=== PATIENT | female | born 1940 | race Caucasian/White ===

== ENCOUNTER 2020-04-25 09:58 | Outpatient (REF) | payer MEDICARE, SELFPAY ==
--- NOTE | 2020-04-25 10:57 | PM.OP ---
Brief Operative Note Date of procedure: 04/25/20 Pre-op diagnosis: nontoxic multinodular goiter Post-op diagnosis: same Procedure: Fine-needle aspiration biopsy of isthmic nodule and right mid pole lateral nodule. This procedure was explained to the patient. Alternatives, risks and benefits were discussed. Written consent was obtained. After sterile preparation of the skin, fine-needle aspiration biopsy of isthmic /right side thyroid nodule size 2.5 x 1.3 x 2.1 cm was performed under direct ultrasound guidance to confirm accurate needle placement. Four passes were performed with 25 gauge needles. Sample was submitted for cytology, initial cytology reading was rare follicular cells. 1 extra pass was performed with 25 gauge needle. Two passes were dedicated for [employer] genomic sequencing director marketing communications test. Second fine-needle aspiration biopsy of right mid pole lateral nodule size 1.1 x 1.2 cm was performed under thyroid ultrasound guidance to confirm accurate needle placement. Four passes were performed with 25 gauge needles. Sample was submitted for cytology, initial cytology reading was borderline. Patient tolerated procedure well. Aftercare instructions were provided. Impression: uncomplicated fine-needle aspiration biopsy of Isthmic / right nodule and right mid pole lateral thyroid nodules under direct ultrasound guidance. Surgeon: Garrison Downing MD Anesthesia: local ( Lidocaine 1%, 2 mL) Estimated blood loss (mL): 0 Condition: stable Disposition: same day
[2020-04-25] MEDS: Lidocaine HCl 1 % MPF 5 ML VIAL SUBCUT (13:18)
== END 2020-04-25 09:59 | disposition home or self-care (01) ==
LOC: HO.US 09:58
PROVIDERS: Visit Provider Internal Medicine Endocrinology, Diabetes & Metabolism
DX: E04.2 Nontoxic multinodular goiter (principal)
CPT/HCPCS: 10005; 10006; 88172; 88173; 88177; 88305

== ENCOUNTER → 2020-05-16 11:14 | Outpatient (BNVA) | payer MEDICARE, SELFPAY | PROVIDERS: PCP Internal Medicine; Referring Provider Internal Medicine; Visit Provider Internal Medicine Endocrinology, Diabetes & Metabolism | DX: E11.9 Type 2 diabetes mellitus without complications (principal); Z79.84 Long term (current) use of oral hypoglycemic drugs; M81.0 Age-related osteoporosis without current pathological fracture; E04.2 Nontoxic multinodular goiter; E53.8 Deficiency of other specified B group vitamins; Z79.899 Other long term (current) drug therapy | CPT/HCPCS: 82947; 99212 ==

== ENCOUNTER 2020-09-02 14:16 | Outpatient (REF) | payer MEDICARE, SELFPAY ==
[2020-09-02 16:46] LABS: Alanine Aminotransferase 25 U/L (0-31); Albumin Level 4.6 g/dL (3.5-5.0); Alkaline Phosphatase 69 U/L (39-117); Anion Gap 16 (12-20); Aspartate Amino Transferase 15 U/L (5-31); Bilirubin Total 2.6 mg/dL (0.0-1.0); Blood Urea Nitrogen 20 mg/dL (9-16); Calcium 10.8 mg/dL (8.4-10.2); Carbon Dioxide 28 mmol/L (22-29); Chloride 102 mmol/L (96-108); Cholesterol 126 mg/dL; Estimated Glomerular Filt Rate > 60; Glucose Fasting 189 mg/dL (60-99); HDL Cholesterol 43 mg/dL; LDL Cholesterol Calculated 40 mg/dl; Potassium 4.2 mmol/L (3.3-5.1); Sodium 142 mmol/L (135-145); Total Protein 7.6 g/dL (6.5-8.0); Triglycerides 217 mg/dL
[2020-09-02 17:03] LABS: Vitamin D 25-OH Total 38.5 ng/mL (>30)
[2020-09-02 17:07] LABS: Vitamin B12 301 pg/mL (200-900)
[2020-09-03 01:22] LABS: LDL Cholesterol Direct 65 mg/dL (<100)
== END 2020-09-02 14:17 | disposition home or self-care (01) ==
LOC: HO.HMGCLDS 14:16
PROVIDERS: PCP Internal Medicine; Visit Provider Internal Medicine Endocrinology, Diabetes & Metabolism
DX: E11.9 Type 2 diabetes mellitus without complications (principal); M81.0 Age-related osteoporosis without current pathological fracture
CPT/HCPCS: 36415; 80053; 80061; 82306; 82607; 83721

== ENCOUNTER 2020-09-09 | Outpatient (REF) | payer MEDICARE, SELFPAY ==
[2020-09-17 01:02] LABS: N-Telopeptide 23 (see note); NTXCreaRU 32 mg/dL (20-275)
== END 2020-09-09 00:01 | disposition home or self-care (01) ==
LOC: HO.HMGCLNP
PROVIDERS: Visit Provider Internal Medicine Endocrinology, Diabetes & Metabolism
DX: M81.0 Age-related osteoporosis without current pathological fracture (principal)
CPT/HCPCS: 82523

== ENCOUNTER → 2020-09-13 10:48 | Outpatient (BNVA) | payer MEDICARE, SELFPAY | PROVIDERS: PCP Internal Medicine; Visit Provider Internal Medicine Endocrinology, Diabetes & Metabolism | DX: E11.9 Type 2 diabetes mellitus without complications (principal); M81.0 Age-related osteoporosis without current pathological fracture; E04.2 Nontoxic multinodular goiter; E53.8 Deficiency of other specified B group vitamins; E78.5 Hyperlipidemia, unspecified; I10 Essential (primary) hypertension | CPT/HCPCS: 82947; 99212 ==

== ENCOUNTER 2020-09-13 11:58 | Outpatient (REF) | payer MEDICARE, SELFPAY ==
[2020-09-13 14:29] LABS: Alanine Aminotransferase 18 U/L (0-31); Albumin Level 4.7 g/dL (3.5-5.0); Alkaline Phosphatase 70 U/L (39-117); Anion Gap 16 (12-20); Aspartate Amino Transferase 13 U/L (5-31); Bilirubin Total 2.6 mg/dL (0.0-1.0); Blood Urea Nitrogen 17 mg/dL (9-16); Calcium 10.4 mg/dL (8.4-10.2); Carbon Dioxide 26 mmol/L (22-29); Chloride 103 mmol/L (96-108); Estimated Glomerular Filt Rate > 60; Glucose Fasting 179 mg/dL (60-99); Potassium 4.5 mmol/L (3.3-5.1); Sodium 140 mmol/L (135-145); Total Protein 7.7 g/dL (6.5-8.0)
[2020-09-16 18:41] LABS: Calcium (PTHI) 10.6 mg/dL (8.6-10.4); PTHI 20 pg/mL (14-64)
[2020-09-18 15:27] LABS: Fructosamine 302 umol/L (205-285)
== END 2020-09-13 11:59 | disposition home or self-care (01) ==
LOC: HO.10HDL 11:58
PROVIDERS: Visit Provider Internal Medicine Endocrinology, Diabetes & Metabolism
DX: M81.0 Age-related osteoporosis without current pathological fracture (principal); E11.9 Type 2 diabetes mellitus without complications
CPT/HCPCS: 36415; 80053; 82306; 82985; 83970

== ENCOUNTER → 2020-09-24 09:31 | Outpatient (BNVA) | payer MEDICARE, SELFPAY | PROVIDERS: PCP Internal Medicine; Visit Provider Internal Medicine Cardiovascular Disease | DX: R06.02 Shortness of breath (principal); Z79.899 Other long term (current) drug therapy; Z87.891 Personal history of nicotine dependence | CPT/HCPCS: 99212 ==

== ENCOUNTER 2020-10-01 09:22 | Outpatient (REF) | payer MEDICARE, SELFPAY ==
--- NOTE | ~2020-10-01 | US_ITS ---
EXAMINATION: US THYROID CLINICAL INFORMATION: Followup nodules. COMPARISON: None. TECHNIQUE: Linear transducer miller-scale and color Doppler examination with attention to the region of the thyroid. FINDINGS: SIZE: Measurements of the thyroid lobes and nodules are given in sagittal, anteroposterior and transverse dimensions respectively. Right Thyroid Lobe: 5.7 x 2.3 x 2.1 cm, volume 14.4 mL. Previously 5.2 x 2.0 x 2.1 cm, volume 11.1 mL. Parenchyma: The gland echotexture is heterogeneous. Thyroid vascularity is normal. Left Thyroid Lobe: 4.7 x 1.6 x 1.9 cm, volume 7.5 mL. Previously 4.6 x 1.6 x 1.9 cm, volume 7.1 mL. Parenchyma: The gland echotexture is heterogeneous. Thyroid vascularity is normal. Isthmus: 1.3 cm in maximum AP dimension. Previously 0.3 cm. Estimated total number of nodules greater than or equal to 1 cm: 6 to 10. Head Loft Worker nodules are described as follows: 1. Location: Right isthmus. Size: 2.7 x 1.3 x 2.1 cm, volume 3.7 mL. Previously: 2.5 x 1.3 x 2.1 cm, volume 3.6 mL. Nodule characteristics: Composition: Solid/almost completely solid (2). Echogenicity: Hypoechoic (2). Shape: Not taller than wide (0). Margins: Smooth (0). Echogenic Foci: None (0). ACR TI-RADS total points: 4 ACR TI-RADS category: 4 Significant change in size (>/= 20% in 2 dimensions and minimal increase of 2 mm or 50% or greater increase in volume): None Change in features: None Change in ACR TI-RADS risk category: None 2. Location: Right mid. Size: 1.5 x 0.8 x 1.1 cm, volume 0.7 mL. Previously: 0.8 x 0.4 x 0.6 cm, volume 0.1 mL. Nodule characteristics: Composition: Spongiform (0). Echogenicity: Anechoic (0). Shape: Not taller than wide (0). Margins: Smooth (0). Echogenic Foci: None (0). ACR TI-RADS total points: 0 ACR TI-RADS category: 1 Significant change in size (>/= 20% in 2 dimensions and minimal increase of 2 mm or 50% or greater increase in volume): None Change in features: None Change in ACR TI-RADS risk category: None 3. Location: Right mid lateral. This lesion has been biopsied previously. Size: 1.8 x 0.8 x 1.1 cm, volume 1.1 mL. Previously: 1.2 x 0.8 x 1.2 cm, volume 0.6 mL. Nodule characteristics: Composition: Mixed cystic and solid (1). Echogenicity: Hypoechoic (2). Shape: Not taller than wide (0). Margins: Smooth (0). Echogenic Foci: None (0). ACR TI-RADS total points: 3 ACR TI-RADS category: 3 Significant change in size (>/= 20% in 2 dimensions and minimal increase of 2 mm or 50% or greater increase in volume): None Change in features: None Change in ACR TI-RADS risk category: None 4. Location: Right inferior. Size: 1.3 x 0.8 x 0.9 cm, volume 0.5 mL. Previously: New since the previous study. Nodule characteristics: Composition: Solid (2). Echogenicity: Hypoechoic (2). Shape: Not taller than wide (0). Margins: Smooth (0). Echogenic Foci: None (0). ACR TI-RADS total points: 4 ACR TI-RADS category: 4 Significant change in size (>/= 20% in 2 dimensions and minimal increase of 2 mm or 50% or greater increase in volume): None Change in features: None Change in ACR TI-RADS risk category: None 5. Location: Left mid. Size: 1.4 x 0.9 x 1.1 cm, volume 0.7 mL. Previously: 1.4 x 1.0 x 1.3 cm, volume 0.95 mL. Nodule characteristics: Composition: Mixed cystic and solid (1). Echogenicity: Hypoechoic (2). Shape: Not taller than wide (0). Margins: Smooth (0). Echogenic Foci: Macrocalcifications (1). ACR TI-RADS total points: 4 ACR TI-RADS category: 4 Significant change in size (>/= 20% in 2 dimensions and minimal increase of 2 mm or 50% or greater increase in volume): None Change in features: None Change in ACR TI-RADS risk category: None NODES: No lymphadenopathy is seen in the tissue surrounding the thyroid gland. US/US thyroid IMPRESSION: Multinodular goiter with the largest measured thyroid nodules stable and unchanged. ACR TI-RADS RECOMMENDATION REFERENCE: Ultrasound-guided fine-needle aspiration, followup ultrasound, no further followup. * TR1 (0 point) and TR 2 (2 points): No FNA or followup. * TR3 (3 points): FNA if more than or equal to 2.5 cm in maximum dimension, followup ultrasound in 1, 3 and 5 years if 1.5 to 2.4 cm in maximum dimension. * TR4 (4-6 points): FNA if more than or equal to 1.5 cm in maximum dimension, followup ultrasound in 1, 2, 3 and 5 years if 1 to 1.4 cm in maximum dimension. * TR5 (more than or equal to 7 points): FNA if more than or equal to 1 cm in maximum dimension, followup ultrasound every year for 5 years if 0.5 to 0.9 cm in maximum dimension. * TR3, TR4 or TR5 nodules that are below the size threshold for followup receive no followup.
== END 2020-10-01 09:23 | disposition home or self-care (01) ==
LOC: HO.HMGCX 09:22
PROVIDERS: PCP Internal Medicine; Visit Provider Internal Medicine Endocrinology, Diabetes & Metabolism
DX: E04.2 Nontoxic multinodular goiter (principal); M81.0 Age-related osteoporosis without current pathological fracture
CPT/HCPCS: 76536

== ENCOUNTER 2020-10-17 09:02 | Outpatient (REF) | payer MEDICARE, SELFPAY ==
[2020-10-17 10:37] LABS: Blood Urea Nitrogen 15 mg/dL (9-16); Estimated Glomerular Filt Rate > 60
== END 2020-10-17 09:03 | disposition home or self-care (01) ==
LOC: HO.MDS 09:02
PROVIDERS: PCP Internal Medicine; Visit Provider Internal Medicine Endocrinology, Diabetes & Metabolism
DX: M81.0 Age-related osteoporosis without current pathological fracture (principal)
CPT/HCPCS: 36415; 82565; 84520; 96365; J3489

== ENCOUNTER → 2020-10-24 09:31 | Outpatient (REF) | payer MEDICARE, SELFPAY ==
--- NOTE | 2020-10-24 09:35 | CA_ITS ---
Transthoracic Echocardiogram Patient (Last, First, Middle): Angelika Mora M Gender: Female Date of : 1940 Age: 79 Procedure Date: 10/24/2020 Procedure Type: Transthoracic Echocardiogram Location: OP Height: 162.56 cm Weight: 86.18 kg BSA: 1.91 m2 Heart Rate: bpm BP: 140 / 70 mmHg Clothespin Drier Operator: NOEMI Referring MD: Erasto Hanley MD Symptoms: R06.02 - Shortness of breath Study Quality: Fair ECG Rhythm: Sinus Conclusions: - The left ventricular systolic function is normal. The visually estimated ejection fraction is between 60-65%. - The basal inferior segment is akinetic. - No obvious valvular pathology seen on this study. Findings Left Ventricle Normal left ventricular cavity size. There is mildly increased left ventricular wall thickness. The left ventricular systolic function is normal. The visually estimated ejection fraction is between 60-65%. E/E prime ratio is between 8 and 15 consistent with indeterminate filling pressures. Evidence suggests grade I (mild) diastolic dysfunction. Wall Motion Rest Echo Findings The basal inferior segment is akinetic. Right Ventricle Normal right ventricular cavity size and systolic function. Atria The left atrium is normal in size. The right atrium is normal in size. Aortic Valve There is a normal trileaflet aortic valve. There is mild calcification of the aortic valve. There is no aortic valve stenosis. There is no aortic valve regurgitation. Mitral Valve The mitral valve appears normal. There is trace mitral valve regurgitation. There is no mitral valve stenosis. Pulmonic Valve The pulmonic valve was not well visualized. Tricuspid Valve Normal tricuspid valve structure. There is trace tricuspid valve regurgitation. The pulmonary artery systolic pressure is normal. Great Vessels The aortic annulus, sinuses of valsalva, and asc aorta are normal in size. Venous The inferior vena cava is normal in size and collapses greater than 50% with inspiration. Pericardium/Pleural There is no evidence of pericardial effusion. Prior Study Comparison No significant change compared to prior study dated: 12/09/2016. Recommendations, Care & Conclusions No obvious valvular pathology seen on this study. Measurements 2D Linear Measurements IVSd: 1.15 0.6-0.9/0.6-1.0 cm LVIDd: 3.86 3.9-5.3/4.2-5.9 cm LVIDd Index: 2.02 2.4-3.2/2.2-3.1 cm/m2 LVIDs: 2.65 2.0-3.6 cm LVPWd: 1.11 0.7-1.1 cm Ao Root: 3.30 2.1-3.5 cm LA Diam: 4.20 2.7-3.8/3.0-4.0 cm LAIDs Index: 2.20 1.5-2.3 cm/m2 LV Mass: 178.58 67-162/88-224 g LV Mass Index: 93.50 43-95/49-115 g/m2 LVOT Diam: 2.20 3.0+(-)1.3 cm 2D Systolic Function EF 4C: 68.60 >55% EF 2C: 64.80 >55% EF BiP: 66.50 >55% Mitral Valve MV Pk E: 0.62 MV PK A: 0.97 MV Decel Time: 289.00 E/A: 0.60 E'Lateral: 7.64 E'Medial: 4.54 E/E' Med: 13.60 E/E' Lat: 8.10 PHT: 85.00 MVA PHT: 2.59 Decel Gray: 2.14 Aortic Valve AoV Pk Yonathan: 1.78 AoV Mn Yonathan: 1.03 AoV VTI: 0.29 AoV Pk Grad: 13.00 Aov Mn Grad: 5.00 GLORIA Cont.VTI: 2.52 LVOT LVOT Pk Yonathan: 1.22 LVOT Mn Yonathan: 0.71 LVOT VTI: 0.19 LVOT Pk Grad: 6.00 LVOT Mn Grad: 3.00 LVOT Diam: 2.20 LVOT Area: 3.80 Diastolic Function MV Pk E: 0.62 MV Pk A: 0.97 E/A: 0.60 E'Medial: 4.54 E/E' Med: 13.60 E' Laterial: 7.64 E/E' Lat: 8.10 Tricuspid Valve TR Pk Yonathan: 1.52 TR Pk Grad: 9.00 RA Press: 3.00 RVSP: 12.00 Great Vessels Aorta Ao Root-2D: 3.30 2.0-3.7 cm Ao Asc: 3.60 2.1-3.4 cm Ao Arch: 3.20 Updated in Other Vendor System with Status of Final Derrick Alarcon MD electronically signed on 10/26/2020 9:58:45 AM with status of Final
== END ==
LOC: HO.CARD 09:31
PROVIDERS: Visit Provider Internal Medicine Cardiovascular Disease
DX: R06.02 Shortness of breath (principal)
CPT/HCPCS: 93306

== ENCOUNTER 2020-10-31 11:06 | Outpatient (REF) | payer MEDICARE, SELFPAY ==
--- NOTE | ~2020-10-31 | XR_ITS ---
EXAMINATION: XR CHEST CLINICAL INFORMATION: History of neck within the tendons. COMPARISON: Chest 06/03/2016 TECHNIQUE: Chest 2 views FINDINGS: The lungs are hyperinflated but clear of acute process. The heart size is enlarged. Pulmonary vascularity is normal. No gross bony abnormality seen. XR/XR chest 2V IMPRESSION: Inflated lungs without acute process.
== END 2020-10-31 11:07 | disposition home or self-care (01) ==
LOC: HO.XRAY 11:06
PROVIDERS: PCP Internal Medicine; Visit Provider Internal Medicine
DX: R06.02 Shortness of breath (principal); I25.10 Atherosclerotic heart disease of native coronary artery without angina pectoris; I10 Essential (primary) hypertension; E53.8 Deficiency of other specified B group vitamins; E11.9 Type 2 diabetes mellitus without complications; I48.0 Paroxysmal atrial fibrillation; J30.81 Allergic rhinitis due to animal (cat) (dog) hair and dander; M81.0 Age-related osteoporosis without current pathological fracture; Z87.891 Personal history of nicotine dependence; Z79.84 Long term (current) use of oral hypoglycemic drugs; Z79.899 Other long term (current) drug therapy
CPT/HCPCS: 71046; 99202

== ENCOUNTER 2020-12-11 10:16 | Outpatient (REF) | payer MEDICARE, SELFPAY ==
--- NOTE | ~2020-12-11 | MM_ITS ---
EXAMINATION: BONE DENSITOMETRY CLINICAL INDICATION: Age-related osteoporosis without current pathological fracture. COMPARISON: Previous BD dated 12/06/2018 and baseline BD dated 07/30/2016. TECHNIQUE: Using a [employer] DXA System (software version: 13.1) manufactured by [employer], dual-energy x-ray absorptiometry was performed of the lumbar spine and right hip. The images are of good technical quality. Summary results are attached. FINDINGS: AP SPINE L1-L4: Current: BMD 1.092 g/cm2, Z-score 0.4, T-score -0.7, normal, 0.8% increase from previous, 2.5% increase from baseline (<5% change is not significant). Prior: BMD 1.083 g/cm2. Baseline: BMD 1.065 g/cm2. RIGHT FEMUR, NECK: Current: BMD 0.645 g/cm2, Z-score -1.2, T-score -2.8, osteoporosis. Prior: BMD 0.673 g/cm2. Baseline: BMD 0.696 g/cm2. RIGHT FEMUR, TOTAL: Current: BMD 0.770 g/cm2, Z-score -0.4, T-score -1.9, osteopenia, 1.5% decrease from previous, 1.9% decrease from baseline (<5% change is not significant). Prior: BMD 0.782 g/cm2. Baseline: BMD 0.785 g/cm2. IDENTIFIED RISK FACTORS: Osteoporosis, height loss, history of fracture (adult), glucocorticoids (chronic), menopause, hysterectomy, bilateral oophorectomy. HISTORY OF FRACTURE: Hip, Trauma. MEDICATIONS: Vitamin D. MM/XR DEXA axial skeleton IMPRESSION: 1. DIAGNOSIS: Osteoporosis based on the lowest T-score value of -2.8 in the femoral neck applying World Health Organization criteria. 2. 10-YEAR FRACTURE RISK PREDICTION, FRAX: Major osteoporotic fracture (clinical spine, forearm, hip or shoulder) 41.5%. Hip fracture 17.3%. 3. Treatment Recommendations: NOF guidelines recommend consideration for treatment in postmenopausal women and men age 50 and older presenting with the following: -A hip or vertebral (clinical or morphometric) fracture. -T-score less than or equal to -2.5 at the femoral neck or spine after appropriate evaluation to exclude secondary causes. -Low bone mass at the hip or spine and a 10-year fracture probability by FRAX of greater than or equal to 3% for hip fracture or greater than or equal to 20% for major osteoporotic fracture based on the [place] adapted WHO algorithm. 4. Other Recommendations: All treatment decisions require clinical judgment and consideration of individual patient factors, including patient preferences, comorbidities, previous drug use, risk factors not captured in the FRAX model (e.g. frailty, falls, vitamin D deficiency, increased bone turnover, interval significant decline in bone density) and possible under or overestimation of fracture risk by FRAX. Additional medical evaluation for secondary cause of low bone mineral density may be appropriate. FUTURE SCAN RECOMMENDATION: People with diagnosed cases of osteoporosis or at high risk for fracture should have regular bone mineral density tests. For patients eligible for Medicare, routine testing is allowed once every 2 years. The testing frequency can be increased to one year for patients who have rapidly progressing disease, those who are receiving or discontinuing medical therapy to restore bone mass, or have additional risk factors.
== END 2020-12-11 10:17 | disposition home or self-care (01) ==
LOC: HO.MAMMO 10:16
PROVIDERS: PCP Internal Medicine; Visit Provider Internal Medicine Endocrinology, Diabetes & Metabolism
DX: Z13.820 Encounter for screening for osteoporosis (principal); M81.0 Age-related osteoporosis without current pathological fracture; E27.49 Other adrenocortical insufficiency; Z78.0 Asymptomatic menopausal state; Z98.890 Other specified postprocedural states; Z79.899 Other long term (current) drug therapy; Z87.81 Personal history of (healed) traumatic fracture
CPT/HCPCS: 77080

== ENCOUNTER 2020-12-12 08:54 | Outpatient (REF) | payer MEDICARE, SELFPAY ==
--- NOTE | 2020-12-12 15:33 | PFT_ITS ---
INDICATION: Shortness of breath. SPIROMETRY: The FEV1 to FVC 80% with an FEV1 of 1.98 L, which is 100% predicted, and the FVC 2.46 L, which is 92% predicted. No significant response to bronchodilators noted. Maximum voluntary ventilation 90% predicted. LUNG VOLUMES: Total lung capacity 98% predicted with an expiratory reserve volume of 29% predicted. DIFFUSION CAPACITY: DLCO 75% predicted. COMPARISONS: None available. INTERPRETATION: No obstructive nor restrictive ventilatory defects identified. No significant response to bronchodilators noted. Normal maximum voluntary ventilation. Lung volumes are normal except for decrease in the expiratory reserve volume secondary to an elevated BMI. The patient also has a mild diffusion impairment, should correct for hemoglobin. Clinical correlation warranted. MD CARI Mcguire/MODLetty / [id number]
== END 2020-12-12 08:55 | disposition home or self-care (01) ==
LOC: HO.RESP 08:54
PROVIDERS: PCP Internal Medicine; Visit Provider Internal Medicine
DX: R06.02 Shortness of breath (principal); Z87.891 Personal history of nicotine dependence
CPT/HCPCS: 94060; 94727; 94729; 99212

== ENCOUNTER → 2020-12-20 10:20 | Outpatient (BNVA) | payer MEDICARE, SELFPAY | PROVIDERS: PCP Internal Medicine; Visit Provider Internal Medicine Endocrinology, Diabetes & Metabolism | DX: E11.9 Type 2 diabetes mellitus without complications (principal); E04.2 Nontoxic multinodular goiter; E53.8 Deficiency of other specified B group vitamins; E78.5 Hyperlipidemia, unspecified; I10 Essential (primary) hypertension; M81.0 Age-related osteoporosis without current pathological fracture | CPT/HCPCS: 82947; 99212 ==

== ENCOUNTER → 2021-05-12 10:02 | Outpatient (BNVA) | payer MEDICARE, SELFPAY | PROVIDERS: PCP Internal Medicine; Referring Provider Internal Medicine; Visit Provider Internal Medicine Cardiovascular Disease | DX: Z01.810 Encounter for preprocedural cardiovascular examination (principal); I25.10 Atherosclerotic heart disease of native coronary artery without angina pectoris; I48.0 Paroxysmal atrial fibrillation; I10 Essential (primary) hypertension; E11.9 Type 2 diabetes mellitus without complications; E78.5 Hyperlipidemia, unspecified; E53.8 Deficiency of other specified B group vitamins; E04.2 Nontoxic multinodular goiter; M81.0 Age-related osteoporosis without current pathological fracture; F17.210 Nicotine dependence, cigarettes, uncomplicated; Z95.5 Presence of coronary angioplasty implant and graft; J30.81 Allergic rhinitis due to animal (cat) (dog) hair and dander; Z88.8 Allergy status to other drugs, medicaments and biological substances; Z79.84 Long term (current) use of oral hypoglycemic drugs; Z79.899 Other long term (current) drug therapy | CPT/HCPCS: 93005; 99212 ==

== ENCOUNTER → 2021-06-25 10:51 | Outpatient (BNVA) | payer MEDICARE, SELFPAY | PROVIDERS: PCP Internal Medicine; Visit Provider Internal Medicine | DX: E55.9 Vitamin D deficiency, unspecified (principal); E21.3 Hyperparathyroidism, unspecified; E04.2 Nontoxic multinodular goiter; M81.0 Age-related osteoporosis without current pathological fracture | CPT/HCPCS: 82947; 83036; 99212 ==

== ENCOUNTER 2021-06-25 11:50 | Outpatient (REF) | payer MEDICARE, SELFPAY ==
[2021-06-25 13:54] LABS: Alanine Aminotransferase 21 U/L (0-31); Albumin Level 4.4 g/dL (3.5-5.0); Alkaline Phosphatase 60 U/L (39-117); Anion Gap 16 (12-20); Aspartate Amino Transferase 20 U/L (5-31); Bilirubin Total 4.4 mg/dL (0.0-1.0); Blood Urea Nitrogen 10 mg/dL (9-16); Calcium 9.9 mg/dL (8.4-10.2); Carbon Dioxide 27 mmol/L (22-29); Chloride 106 mmol/L (96-108); Estimated Glomerular Filt Rate > 60; Glucose Random 155 mg/dL (60-115); Phosphorus 3.2 mg/dL (2.7-4.5); Potassium 3.8 mmol/L (3.3-5.1); Sodium 145 mmol/L (135-145); Total Protein 7.1 g/dL (6.5-8.0)
[2021-06-25 14:16] LABS: Free T4 (Free Thyroxine) 0.95 ng/dL (0.71-1.85); Thyroid Stimulating Hormone 0.58 uIU/mL (0.32-4.0); Vitamin D 25-OH Total 37.1 ng/mL (>30)
[2021-06-27 12:21] LABS: Prot Elec - Albumin 4.1 g/dL (3.8-4.8); Prot Elec - Alpha1 0.3 g/dL (0.2-0.3); Prot Elec - Alpha2 0.8 g/dL (0.5-0.9); Prot Elec - Beta 1 0.5 g/dL (0.4-0.6); Prot Elec - Beta 2 0.4 g/dL (0.2-0.5); Prot Elec - Gamma 0.9 g/dL (0.8-1.7); Prot Elec - Total Protein 6.9 g/dL (6.1-8.1)
[2021-06-28 09:27] LABS: Alkaline Phosphatase Bone 8.3 mcg/L (see note)
== END 2021-06-25 11:51 | disposition home or self-care (01) ==
LOC: HO.10HDL 11:50
PROVIDERS: Visit Provider Internal Medicine
DX: M81.0 Age-related osteoporosis without current pathological fracture (principal); E55.9 Vitamin D deficiency, unspecified
CPT/HCPCS: 36415; 80053; 82306; 84075; 84100; 84165; 84439; 84443

== ENCOUNTER → 2021-06-27 07:52 | Outpatient (REF) | payer MEDICARE, SELFPAY ==
--- NOTE | ~2021-06-27 | NM_ITS ---
Myocardial perfusion study Indication: Preoperative cardiovascular risk stratification Technique: The patient was brought in for a Lexiscan perfusion study on 06/27/2021. Patient performed low-level exercise and was injected 0.4 mg of Lexiscan intravenously. Within a minute of injection, 30 mCi of sestamibi was given intravenously. Images were obtained using the SPECT gamma camera interlaced with the gating device. Images were obtained in supine position. Resting perfusion study was performed on 06/30/2021. Patient was administered 30 mCi of sestamibi intravenously at rest. Images were then obtained in supine position. Images obtained with and without CT attenuation. Total DLP 115 mGy-cm. Images were processed with the software and compared side to side in short axis, horizontal long axis and vertical long axis views. Findings: The stress perfusion study showed non attenuated images show absent uptake in the basal inferior and inferolateral wall wall of the LV myocardium. Moderately reduced uptake in the lateral wall of the LV myocardium. Attenuation corrected images show the basal inferolateral and inferior wall of the LV myocardium.. The gated study shows normal LV systolic function with calculated LVEF of 57%. LV cavity is normal in size. The gated study shows reduced wall thickening and contraction of basal inferior and inferolateral segments. Resting study shows no significant change in perfusion pattern compared to stress perfusion study. Gating at rest reveals normal systolic wall motion with ejection fraction at 62%. The findings are consistent with no reversible defect suggestive of anemia. Fixed basal inferior inferolateral defect suggestive of prior myocardial infarction. NM/NM luis perf SPECT rest & str Impression: 1. Myocardial perfusion imaging study shows no ischemia with transmural infarct of the basal inferior and inferolateral wall 2. Gated LVEF is 57% 3. Transient ischemic dilatation not present EKG is nondiagnostic for ischemia
--- NOTE | 2021-06-27 07:55 | CA_ITS ---
Acquisition Time: 2021-06-27 08:14:15 Total Exercise Time: 00:02:00 Test Indications: AFIB, ABN EKG Medications: SEE CHART Protocol: LEXISCAN Max HR: 114 BPM 80% of Pred: 141 BPM Max BP: 136/078 mmHG Max Work Load: 1.0 METS Pharmacological stress test with Lexiscan injection, while sitting and kicking her legs, without anginal symptoms, with isolated PVC, with normotensive response to injection, with nondiagnostic EKG for ischemia. At 6 min recovery her heart rate remained elevated at 106 and she was treated with Aminophylline 75mg IVP to reverse Lexiscan. Nuclear images pending. Test reviewed with Dr Tobin. Referred By: Erasto Hanley Overread By: LOCO MUNOZ
== END ==
LOC: HO.CARD 07:52
PROVIDERS: PCP Internal Medicine; Visit Provider Internal Medicine Cardiovascular Disease
DX: Z01.810 Encounter for preprocedural cardiovascular examination (principal)
CPT/HCPCS: 78452; 93017; A9500; J0280; J2785

== ENCOUNTER → 2021-08-27 09:43 | Outpatient (REF) | payer MEDICARE, SELFPAY ==
--- NOTE | 2021-08-27 09:46 | CA_ITS ---
Transthoracic Echocardiogram Patient (Last, First, Middle): Angelika Mora M Gender: Female Date of : 1940 Age: 80 Procedure Date: 08/27/2021 Procedure Type: Transthoracic Echocardiogram Location: OP Height: 160.02 cm Weight: 83.01 kg BSA: 1.86 m2 Heart Rate: bpm BP: 136 / 80 mmHg Principal Developer: NOEMI Referring MD: Erasto Hanley MD Package Collector: Erasto Hanley MD Symptoms: Z01.810 - Encounter for preprocedural cardiovascular exam... Study Quality: Fair ECG Rhythm: Sinus Conclusions: - 1. Normal LV systolic function with grade 1 diastolic dysfunction with underlying regional wall motion abnormality suggestive coronary artery disease 2. Normal cardiac valvular Doppler 3. Normal RV systolic pressure 4. No pericardial effusion Findings Left Ventricle Normal left ventricular size, thickness, and systolic function. The visually estimated ejection fraction is between 60-65%. Spectral Doppler is indicative of an impaired relaxation filling pattern. E/E prime ratio is <8, consistent with normal filling pressures. Evidence suggests grade I (mild) diastolic dysfunction. Wall Motion Rest Echo Findings The inferoseptal wall and basal inferolateral segment are hypokinetic. The basal inferior segment is akinetic. All other scored wall segments showed normal motion. Right Ventricle Normal right ventricular cavity size and systolic function. Atria The left atrium is normal in size. Interatrial shunt cannot be excluded. The right atrium is normal in size. Aortic Valve There is mild calcification of the aortic valve. There is mild thickening of the aortic valve. There is no aortic valve stenosis. There is no aortic valve regurgitation. Mitral Valve There is mild anterior and moderate posterior mitral leaflet thickening. There is mild mitral annular calcification. There is trace mitral valve regurgitation. There is no mitral valve stenosis. Pulmonic Valve The pulmonic valve was not well visualized. Tricuspid Valve Likely normal tricuspid valve structure and function. There is trace tricuspid valve regurgitation. The right ventricular systolic pressure is normal. There is no evidence of pulmonary hypertension. Great Vessels All visible segments of the aorta are normal in size. The pulmonary artery was not well visualized. Venous The inferior vena cava is normal in size and collapses greater than 50% with inspiration. Pericardium/Pleural There is no evidence of pericardial effusion. Prior Study Comparison No significant change compared to prior study dated: 10/24/2020. Measurements 2D Linear Measurements IVSd: 1.11 0.6-0.9/0.6-1.0 cm LVIDd: 3.34 3.9-5.3/4.2-5.9 cm LVIDd Index: 1.80 2.4-3.2/2.2-3.1 cm/m2 LVIDs: 2.17 2.0-3.6 cm LVPWd: 1.15 0.7-1.1 cm Ao Root: 3.30 2.1-3.5 cm LA Diam: 3.50 2.7-3.8/3.0-4.0 cm LAIDs Index: 1.88 1.5-2.3 cm/m2 LV Mass: 143.89 67-162/88-224 g LV Mass Index: 77.36 43-95/49-115 g/m2 LVOT Diam: 2.00 3.0+(-)1.3 cm 2D Systolic Function EF 4C: 66.60 >55% EF 2C: 62.80 >55% EF BiP: 62.70 >55% Mitral Valve MV Pk E: 0.63 MV PK A: 1.10 MV Decel Time: 248.00 E/A: 0.60 E'Lateral: 6.96 E'Medial: 5.55 E/E' Med: 11.40 E/E' Lat: 9.10 PHT: 73.00 MVA PHT: 3.01 Decel [place]: 2.54 Aortic Valve AoV Pk Yonathan: 1.52 AoV Mn Yonathan: 1.05 AoV VTI: 0.25 AoV Pk Grad: 9.00 Aov Mn Grad: 5.00 GLORIA Cont.VTI: 2.14 LVOT LVOT Pk Yonathan: 0.89 LVOT Mn Yonathan: 0.62 LVOT VTI: 0.17 LVOT Pk Grad: 3.00 LVOT Mn Grad: 2.00 LVOT Diam: 2.00 LVOT Area: 3.14 Diastolic Function MV Pk E: 0.63 MV Pk A: 1.10 E/A: 0.60 E'Medial: 5.55 E/E' Med: 11.40 E' Laterial: 6.96 E/E' Lat: 9.10 Right Ventricle TAPSE (mm): 22.00 TVS' Yonathan: 12.50 Tricuspid Valve TR Pk Yonathan: 1.34 TR Pk Grad: 7.00 RA Press: 3.00 RVSP: 10.00 Great Vessels Aorta Ao Root-2D: 3.30 2.0-3.7 cm Ao Asc: 3.70 2.1-3.4 cm Ao Arch: 2.50 Updated in Other Vendor System with Status of Final Erasto Hanley MD electronically signed on 08/27/2021 2:11:44 PM with status of Final
== END ==
LOC: HO.CARD 09:43
PROVIDERS: Visit Provider Internal Medicine Cardiovascular Disease
DX: Z01.810 Encounter for preprocedural cardiovascular examination (principal)
CPT/HCPCS: 93306

== ENCOUNTER 2021-09-29 11:59 | Outpatient (REF) | payer MEDICARE, SELFPAY ==
[2021-09-29 13:18] LABS: MANUAL DIFF FLAG NO
[2021-09-29 13:26] LABS: Basophils Percent Auto 0.3 % (0-2); Eosinophils Percent Auto 0.1 % (0-4); Hematocrit 43.7 % (37.0-47.0); Hemoglobin 14.7 g/dl (12.0-16.0); Imm Gran Abs Auto 0.03 X10*3/uL (0.00-0.03); Imm Gran Pct Auto 0.3 % (0.0-0.4); Lymphocytes Absolute Auto 1.4 X10*3/uL (1.2-4.9); Lymphocytes Percent Auto 16.5 % (20-40); Mean Corpuscular HGB Conc 33.6 g/dl (31.0-35.0); Mean Corpuscular Hemoglobin 30.4 pg (27.0-33.0); Mean Corpuscular Volume 90.3 fL (80.0-98.0); Mean Platelet Volume 10.9 fL (9.4-12.3); Monocytes Absolute Auto 0.5 X10*3/uL (0.1-1.2); Neutrophils Absolute Auto 6.7 x10*3/uL (2.0-8.3); Neutrophils Percent Auto 76.8 % (45-73); Platelet Count 253 X10*3/uL (160-400); Red Blood Count 4.84 X10*6/uL (4.20-5.50); White Blood Count 8.7 X10*3/uL (4.8-10.8)
[2021-09-29 14:01] LABS: Alanine Aminotransferase 22 U/L (0-31); Albumin Level 4.7 g/dL (3.5-5.0); Alkaline Phosphatase 58 U/L (39-117); Anion Gap 16 (12-20); Aspartate Amino Transferase 20 U/L (5-31); Bilirubin Direct 0.4 mg/dL (0.0-0.5); Blood Urea Nitrogen 12 mg/dL (9-16); C Reactive Protein 0.04 mg/dL (< or = 0.50); Calcium 10.1 mg/dL (8.4-10.2); Carbon Dioxide 23 mmol/L (22-29); Chloride 107 mmol/L (96-108); Estimated Glomerular Filt Rate > 60; Glucose Random 122 mg/dL (60-115); Potassium 4.1 mmol/L (3.3-5.1); Sodium 142 mmol/L (135-145); Total Protein 7.5 g/dL (6.5-8.0)
[2021-09-30 18:07] LABS: Transglutaminase IgA <1.0 U/mL
[2021-10-05 16:11] LABS: Endomysial IgA Antibody Negative (Negative)
== END 2021-09-29 12:00 | disposition home or self-care (01) ==
LOC: HO.LAB 11:59
PROVIDERS: PCP Internal Medicine; Referring Provider Internal Medicine; Visit Provider Physician Assistant
DX: K52.9 Noninfective gastroenteritis and colitis, unspecified (principal); R17 Unspecified jaundice; Z79.01 Long term (current) use of anticoagulants
CPT/HCPCS: 36415; 80053; 82248; 85025; 86140; 86231; 86364; 99202

== ENCOUNTER 2021-10-02 14:52 | Outpatient (REF) | payer MEDICARE, SELFPAY ==
[2021-10-02 16:21] LABS: CDiff Gene PCR NEGATIVE (Negative)
[2021-10-09 19:11] LABS: Pancreatic Elastase-1 >500 mcg/g
== END 2021-10-02 14:53 | disposition home or self-care (01) ==
LOC: HO.LNP 14:52
PROVIDERS: Visit Provider Physician Assistant
DX: K52.9 Noninfective gastroenteritis and colitis, unspecified (principal); R17 Unspecified jaundice
CPT/HCPCS: 82656; 87045; 87046; 87329; 87493

== ENCOUNTER → 2021-10-07 10:28 | Outpatient (BNVA) | payer MEDICARE, SELFPAY | PROVIDERS: PCP Internal Medicine; Visit Provider Nurse Practitioner Gerontology | DX: E11.42 Type 2 diabetes mellitus with diabetic polyneuropathy (principal); E53.8 Deficiency of other specified B group vitamins; E78.5 Hyperlipidemia, unspecified; I10 Essential (primary) hypertension | CPT/HCPCS: 82947; 83036; 99212 ==

== ENCOUNTER 2021-10-21 08:28 | Outpatient (REF) | payer MEDICARE, SELFPAY ==
--- NOTE | ~2021-10-21 | US_ITS ---
EXAMINATION: US ABDOMEN COMPLETE CLINICAL INFORMATION: Noninfective gastroenteritis and colitis, unspecified. COMPARISON: Ultrasound abdomen 10/22/2011. TECHNIQUE: Real-time imaging of the abdominal viscera. FINDINGS: PANCREAS: The head and body the pancreas are normal. The tail is not well visualized due to bowel gas. ABDOMINAL AORTA: Not well visualized due to bowel gas. INFERIOR VENA CAVA: Visualized portions are normal. LIVER: The liver is normal in size. The liver contour is normal. Liver echotexture is slightly increased. No focal hepatic lesion. There is no intrahepatic biliary duct dilatation seen. GALLBLADDER: Surgically absent. COMMON BILE DUCT: Normal in caliber measuring 0.6 cm in diameter. RIGHT KIDNEY: There are 2 cysts measuring 2.3 x 1.9 x 2.4 cm in the upper pole and 1.6 cm in the midpole. No hydronephrosis or renal calculi. The kidney measures 10.8 cm in maximum dimension. LEFT KIDNEY: There are 3 cysts measuring 2.3 x 1.5 x 1.5 cm in the lower pole, 1.6 x 1.4 x 1.1 cm in the lower pole and 0.6 x 0.7 x 0.9 cm. There is a 2 mm echogenic density in the lower pole with twinkle artifact questionable for a small stone. No hydronephrosis. The kidney measures 11.9 cm in maximum dimension. SPLEEN: Normal. The spleen measures 10.6 cm in maximum dimension. FREE FLUID: None. US/US abdomen complete IMPRESSION: Slightly echogenic liver. Bilateral renal cysts. Question small left renal stone. Limited visualization of the pancreas and aorta.
== END 2021-10-21 08:29 | disposition home or self-care (01) ==
LOC: HO.US 08:28
PROVIDERS: Visit Provider Physician Assistant
DX: K52.9 Noninfective gastroenteritis and colitis, unspecified (principal); R17 Unspecified jaundice
CPT/HCPCS: 76700

== ENCOUNTER → 2021-11-04 08:46 | Outpatient (BNVA) | payer MEDICARE, SELFPAY | PROVIDERS: PCP Internal Medicine; Visit Provider Physician Assistant | DX: Z13.89 Encounter for screening for other disorder (principal) | CPT/HCPCS: Q3014 ==

== ENCOUNTER 2021-12-25 08:57 | Outpatient (REF) | payer MEDICARE, SELFPAY ==
[2021-12-25 11:48] LABS: Alanine Aminotransferase 17 U/L (0-31); Albumin Level 4.3 g/dL (3.5-5.0); Alkaline Phosphatase 61 U/L (39-117); Anion Gap 15 (12-20); Aspartate Amino Transferase 14 U/L (5-31); Bilirubin Total 3.3 mg/dL (0.0-1.0); Blood Urea Nitrogen 15 mg/dL (9-16); Calcium 9.3 mg/dL (8.4-10.2); Carbon Dioxide 25 mmol/L (22-29); Chloride 105 mmol/L (96-108); Cholesterol 109 mg/dL; Estimated Glomerular Filt Rate > 60; Glucose Fasting 214 mg/dL (60-99); HDL Cholesterol 37 mg/dL; LDL Cholesterol Calculated 31 mg/dl; Potassium 4.2 mmol/L (3.3-5.1); Sodium 141 mmol/L (135-145); Total Protein 6.9 g/dL (6.5-8.0); Triglycerides 207 mg/dL
[2021-12-25 12:02] LABS: Creatinine Urine 168.93 mg/dL; Microalbum/Creatinine Ratio Ur 21.3 ug/mg cr
[2021-12-25 12:57] LABS: Vitamin B12 < 146 pg/mL (200-900)
[2021-12-26 13:56] LABS: Calcium (PTHI) 9.6 mg/dL (8.6-10.4); PTHI 56 pg/mL (16-77)
[2021-12-27 05:06] LABS: LDL Cholesterol Direct 49 mg/dL (<100)
== END 2021-12-25 08:58 | disposition home or self-care (01) ==
LOC: HO.HMGCLDS 08:57
PROVIDERS: Absent Provider Internal Medicine; PCP Internal Medicine; Visit Provider Nurse Practitioner Gerontology
DX: E11.9 Type 2 diabetes mellitus without complications (principal); E53.8 Deficiency of other specified B group vitamins; M81.0 Age-related osteoporosis without current pathological fracture
CPT/HCPCS: 36415; 80053; 80061; 82043; 82607; 83721; 83970

== ENCOUNTER → 2021-12-30 09:52 | Outpatient (BNVA) | payer MEDICARE, SELFPAY | PROVIDERS: PCP Internal Medicine; Visit Provider Physician Assistant | DX: R17 Unspecified jaundice (principal) | CPT/HCPCS: Q3014 ==

== ENCOUNTER → 2021-12-31 09:34 | Outpatient (BNVA) | payer MEDICARE, SELFPAY | PROVIDERS: PCP Internal Medicine; Visit Provider Internal Medicine | DX: E21.3 Hyperparathyroidism, unspecified (principal); M81.0 Age-related osteoporosis without current pathological fracture; E04.2 Nontoxic multinodular goiter; E55.9 Vitamin D deficiency, unspecified | CPT/HCPCS: Q3014 ==

== ENCOUNTER → 2022-01-07 09:56 | Outpatient (BNVA) | payer MEDICARE, SELFPAY | PROVIDERS: PCP Internal Medicine; Visit Provider Nurse Practitioner Gerontology | DX: E11.42 Type 2 diabetes mellitus with diabetic polyneuropathy (principal); E78.5 Hyperlipidemia, unspecified; E53.8 Deficiency of other specified B group vitamins; E55.9 Vitamin D deficiency, unspecified; I10 Essential (primary) hypertension | CPT/HCPCS: 82947; 83036; 99212 ==

== ENCOUNTER → 2022-01-12 14:12 | Outpatient (BNVA) | payer MEDICARE, SELFPAY | PROVIDERS: PCP Internal Medicine; Referring Provider Internal Medicine; Visit Provider Internal Medicine Cardiovascular Disease | DX: I25.10 Atherosclerotic heart disease of native coronary artery without angina pectoris (principal); I48.91 Unspecified atrial fibrillation; Z79.01 Long term (current) use of anticoagulants; Z79.899 Other long term (current) drug therapy | CPT/HCPCS: 93005; 99212 ==

== ENCOUNTER 2022-03-27 11:35 | Outpatient (REF) | payer MEDICARE, SELFPAY ==
--- NOTE | ~2022-03-27 | XR_ITS ---
EXAMINATION: XR HAND, RIGHT CLINICAL INFORMATION: Contusion COMPARISON: None TECHNIQUE: PA, lateral, and oblique views of the right hand. FINDINGS: No acute fracture or dislocation. Demineralized bones. 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 Ulnar negative variance. Small marginal osteophytes throughout the metacarpophalangeal and interphalangeal joints. Hammond calcification projects over the thenar eminence. Vascular calcifications. Soft tissue swelling dorsal to the hand. XR/XR hand RT min 3V IMPRESSION: No acute fracture or dislocation. Degenerative changes as described.
--- NOTE | ~2022-03-27 | US_ITS ---
EXAMINATION: US VENOUS WITH DOPPLER UPPER EXTREMITY, RIGHT CLINICAL INFORMATION: Soft tissue disorder COMPARISON: None TECHNIQUE: Ultrasound of the upper extremity is performed using compression sonography and color and pulse Doppler flow with assessment of augmentation of flow. There is also imaging and Doppler assessment of the jugular and subclavian veins. Spectral analysis with color-flow imaging is performed. FINDINGS: Normal vascular flow in the right internal jugular vein, subclavian, axillary and brachial veins. Respectively variation is noted. The basilic, cephalic veins demonstrate normal vascular flow and normal compression. The visualized radial and ulnar veins appear patent. There is edema in the area of soft tissue swelling in the hand. The veins in this area appeared to compress. If the patient's symptoms progress, a followup ultrasound in 5 -7 days might be of value to exclude proximal propagation from a nonvisualized distal arm vein. US/US venous duplex UE RT IMPRESSION: No DVT demonstrated in the right upper extremity. If the patient's symptoms progress, a followup ultrasound in 5 -7 days might be of value to exclude proximal propagation from a nonvisualized distal arm vein.
== END 2022-03-27 11:36 | disposition home or self-care (01) ==
LOC: HO.HMGCX 11:35
PROVIDERS: PCP Internal Medicine; Visit Provider Internal Medicine
DX: S60.221A Contusion of right hand, initial encounter (principal); R60.0 Localized edema
CPT/HCPCS: 73130; 93971

== ENCOUNTER 2022-05-13 17:15 | Emergency (ER) | payer MEDICARE, SELFPAY ==
--- NOTE | ~2022-05-13 | US_ITS ---
EXAMINATION: US VENOUS ULTRASOUND WITH DOPPLER LOWER EXTREMITY, LEFT CLINICAL INFORMATION: Swelling and pain COMPARISON: Left leg DVT study 07/02/2016 and 10/06/2016 TECHNIQUE: Ultrasound of the deep veins is performed from the hip to the calf with compression sonography and color and pulse Doppler assessment. Spectral analysis with color-flow imaging is performed. FINDINGS: The previously seen extensive left lower extremity DVT on the 07/02/2016 study in the 10/06/2016 study has for the most part resolved. 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 Otherwise, there are is normal venous compression and respiratory variation and augmented flow. The peroneal veins were not visualized. A Nichols's cyst is present measuring 2.2 x 0.7 x 2.0 cm. If the patient's symptoms persist, followup ultrasound in 5 days 7 days might be of value to exclude proximal propagation from a non-visualized calf vein. US/US venous duplex LE LT IMPRESSION: 1. No acute DVT demonstrated in the left lower extremity. 2. 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 3. Nichols's cyst is present. 4. The peroneal veins were not visualized. If the patient's symptoms persist, followup ultrasound in 5 days 7 days might be of value to exclude proximal propagation from a non-visualized calf vein.
[2022-05-13 18:08] VITALS: BP 187/90; PULSE 77; RESP 18; TEMP 36.6; O2SAT 98; BMI 30.2
[2022-05-13 21:55] LABS: Hematocrit 39.6 % (37.0-47.0); Hemoglobin 13.2 g/dl (12.0-16.0); Mean Corpuscular HGB Conc 33.3 g/dl (31.0-35.0); Mean Corpuscular Hemoglobin 29.9 pg (27.0-33.0); Mean Corpuscular Volume 89.6 fL (80.0-98.0); Mean Platelet Volume 10.4 fL (9.4-12.3); Platelet Count 207 X10*3/uL (160-400); Red Blood Count 4.42 X10*6/uL (4.20-5.50); Red Cell Distribution Width 15.1 % (11.0-16.0); White Blood Count 7.4 X10*3/uL (4.8-10.8)
[2022-05-13 21:59] VITALS: BP 170/80; PULSE 80; RESP 15; O2SAT 96
[2022-05-13 22:18] LABS: Alanine Aminotransferase 12 U/L (0-31); Albumin Level 4.2 g/dL (3.5-5.0); Alkaline Phosphatase 56 U/L (39-117); Anion Gap 16 (12-20); Aspartate Amino Transferase 11 U/L (5-31); Blood Urea Nitrogen 11 mg/dL (9-16); Calcium 9.7 mg/dL (8.4-10.2); Carbon Dioxide 26 mmol/L (22-29); Chloride 107 mmol/L (96-108); Creatinine Clr Calc Pharmacy 71.1; Estimated Glomerular Filt Rate > 60; Glucose Random 126 mg/dL (60-115); Potassium 4.2 mmol/L (3.3-5.1); Sodium 145 mmol/L (135-145); Total Protein 6.6 g/dL (6.5-8.0)
[2022-05-13 23:58] VITALS: BP 168/90; PULSE 78; RESP 16; TEMP 36.4; O2SAT 93
--- NOTE | 2022-05-14 00:32 | ED.EXTPRO ---
HPI - Extremity Problem General Chief complaint: Extremity Injury, Lower Stated complaint: possible blood clot/sent by DrHema Time Seen by Provider: 05/14/22 00:08 Source: patient Mode of arrival: ambulatory Limitations: no limitations History of Present Illness HPI Narrative: patient sent by PCP for left popliteal and left calf pain for last 2- 3 days no shortness of breath no history of blood clots no history of trauma no skin color changes patient does have history of arthritis but no recent increase in pain in the joints Related Data Home Medications Medication Instructions Recorded Confirmed glipizide 2.5 mg tablet, extended 2.5 mg PO DAILY 03/27/22 release 24 hr Previous Rx's Medication Instructions Recorded atorvastatin 40 mg tablet 40 mg PO DAILY 90 days #90 tabs 05/12/21 glipizide 5 mg tablet, extended 5 mg PO DAILY #90 tabs 10/07/21 release 24 hr blood-glucose meter (FreeStyle #1 ea 12/26/21 Lite Meter kit) metformin 1,000 mg tablet 1,000 mg PO BID #180 tabs 12/26/21 mecobalamin (vitamin B12) 1,000 1,000 mcg sublingual DAILY 90 days 12/29/21 mcg disintegrating #90 tabs tablet,sublingual blood sugar diagnostic (FreeStyle #200 ea 01/07/22 Lite Strips) cholecalciferol (vitamin D3) 50 50 mcg PO DAILY #90 caps 01/07/22 mcg (2,000 unit) capsule (Vitamin D3) lancets 28 gauge #200 ea 01/07/22 apixaban 5 mg tablet (Eliquis) 5 mg PO Q12H #180 tabs 01/12/22 lisinopril 10 mg tablet 10 mg PO DAILY 90 days #90 tabs 01/28/22 metoprolol succinate 100 mg 100 mg PO DAILY 90 days #90 tabs 02/13/22 tablet,extended release 24 hr nifedipine 30 mg tablet,extended 30 mg PO DAILY #90 tabs 02/13/22 release cephalexin 500 mg tablet 500 mg PO BID #20 tabs 03/27/22 meloxicam 15 mg tablet 15 mg PO DAILY #10 tabs 03/27/22 Allergies Allergy/AdvReac Type Severity Reaction Status Date / Time cat dander [CAT DANDER] Allergy Mild ITCHY EYES Verified 03/27/22 10:40 cat's claw Allergy Unknown Unknown Verified 03/27/22 10:40 Review of Systems Review of Systems: Yes all other systems are reviewed and are negative [facility] Past Medical History Medical History Atherosclerotic heart disease B12 deficiency CAD (coronary artery disease) Diabetes type 2, controlled DM2 (diabetes mellitus, type 2) Dyslipidemia Elevated bilirubin Ex-smoker Hyperparathyroidism Hypertension Hypertrophic toenail Non-toxic multinodular goiter Osteoporosis Paroxysmal atrial fibrillation Paroxysmal atrial fibrillation Vitamin D deficiency Surgical History Hx of cholecystectomy Hx of hysterectomy Stented coronary artery Family History Family History Father Sudden cardiac CVD (cardiovascular disease) Mother No problems noted. Sister Substance use disorder Social History Social History Household Members Other:: 2 daughters Housing: House Alcohol intake: current Alcohol intake frequency: a few times a month Alcohol type: wine Patient Tobacco Use Status: Former Tobacco user Years Smoked: 30 years e-Cigarette/Vaping Use: Never Used Advance Directives: No Advance Directives Information Provided: No Current occupational status: retired Cognitive needs: No Hearing needs: No Vision needs: Yes Physical Exam Vital Signs: Vital Signs: Last Vital Signs Temp 97.6 F 05/13/22 23:58 Pulse 78 05/13/22 23:58 Resp 16 05/13/22 23:58 BP 168/90 H 05/13/22 23:58 Pulse Ox 93 05/13/22 23:58 O2 Del Method 05/13/22 23:58 BMI result Body Mass Index 30.2 Appearance: Alert. Oriented X3. No acute distress. Eyes: no pallor or icterus ENT: Pharynx normal. Oral Mucosa moist Neck: Normal inspection. Neck supple. CVS: Normal heart rate and rhythm. Pulses normal. Respiratory: No respiratory distress. Equal air entry bilateral, no wheezing/rales/rhonchi Abdomen: Soft and nontender. Bowel sounds are present, no mass palpable, no CVA tenderness Skin: Skin warm and dry. Normal skin color. Normal skin turgor. Extremities: No lower extremity edema. No calf tenderness slight fullness and tenderness in the popliteal area Garrison sign negative left knee with good range of movement no effusion nontender Neuro: Oriented X 3. No motor deficit MDM - Extremity (Nontraumatic) MDM Narrative Medical decision making narrative: patient with left leg pain venous Doppler is negative for DVT, shows nichols cyst will discharge patient home advised to use Francisco wrap Lab Data Attestation: I reviewed the patient's lab results. Result diagrams: 05/13/22 21:45 05/13/22 21:45 Labs: Lab Results 05/13/22 05/13/22 Range/Units 21:45 21:45 WBC 7.4 (4.8-10.8) X10*3/uL RBC 4.42 (4.20-5.50) X10*6/uL Hgb 13.2 (12.0-16.0) g/dl Hct 39.6 (37.0-47.0) % MCV 89.6 (80.0-98.0) fL MCH 29.9 (27.0-33.0) pg MCHC 33.3 (31.0-35.0) g/dl RDW 15.1 (11.0-16.0) % Plt Count 207 (160-400) X10*3/uL MPV 10.4 (9.4-12.3) fL Absolute Nucleated RBC 0.000 (0.0-0.012) X10*3/uL Nucleated RBC % (auto) 0.0 (0.0-0.2) /100WBC Sodium 145 (135-145) mmol/L Potassium 4.2 (3.3-5.1) mmol/L Chloride 107 (96-108) mmol/L Carbon Dioxide 26 (22-29) mmol/L Anion Gap 16 (12-20) BUN 11 (9-16) mg/dL Creatinine 0.67 (0.5-1.4) mg/dL Estim Creat Clear Calc 71.1 Estimated GFR > 60 Random Glucose 126 H (60-115) mg/dL Calcium 9.7 (8.4-10.2) mg/dL Total Bilirubin 3.0 H (0.0-1.0) mg/dL AST 11 (5-31) U/L ALT 12 (0-31) U/L Alkaline Phosphatase 56 (39-117) U/L Total Protein 6.6 (6.5-8.0) g/dL Albumin 4.2 (3.5-5.0) g/dL Discharge Plan Discharge Clinical Impression: Nichols's cyst of knee Patient Disposition: Home, Self-Care Instructions: Bakers Cyst (ED) Additional Instructions: rest your left knee use Francisco wrap or knee brace Tylenol/ibuprofen for pain as needed your sonogram is negative for blood clots Prescriptions: No Action (DME) blood-glucose meter [FreeStyle Lite Meter] Kit See Rx Instructions .Route Qty: 1 0RF Rx Instructions: As directed metformin 1,000 mg tablet 1,000 mg PO BID Qty: 180 1RF mecobalamin (vitamin B12) 1,000 mcg tablet,disintegrating 1,000 mcg sublingual DAILY 90 Days Qty: 90 3RF Rx Instructions: place tablet under tongue and allow to dissolve for at least30 secs before swallowing lisinopril 10 mg tablet 10 mg PO DAILY 90 Days Qty: 90 1RF metoprolol succinate 100 mg tablet extended release 24 hr 100 mg PO DAILY 90 Days Qty: 90 3RF nifedipine 30 mg tablet extended release 30 mg PO DAILY Qty: 90 3RF glipizide 2.5 mg tablet extended release 24hr 2.5 mg PO DAILY cephalexin 500 mg tablet 500 mg PO BID Qty: 20 0RF meloxicam 15 mg tablet 15 mg PO DAILY Qty: 10 0RF atorvastatin 40 mg tablet 40 mg PO DAILY 90 Days Qty: 90 1RF (DME) FreeStyle Lite Strips Strip See Rx Instructions .ROUTE .MEDSUPPLY Qty: 200 3RF Rx Instructions: twice a day (DME) lancets 28 gauge misc See Rx Instructions topical TID Qty: 200 3RF Rx Instructions: As directed twice a day cholecalciferol (vitamin D3) [Vitamin D3] 50 mcg (2,000 unit) capsule 50 mcg PO DAILY Qty: 90 1RF Eliquis 5 mg tablet 5 mg PO Q12H Qty: 180 3RF glipizide 5 mg tablet extended release 24 hr 5 mg PO DAILY Qty: 90 1RF Interventions: ED Discharge Assessment Last Done: 05/14/22 00:52 Discharge Date/Time: 05/14/22 00:53
== END 2022-05-14 00:53 | disposition home or self-care (01) ==
PROVIDERS: Emergency Provider Internal Medicine; PCP Internal Medicine
DX: M71.22 Synovial cyst of popliteal space [Baker], left knee (principal); R60.0 Localized edema; Z79.899 Other long term (current) drug therapy; Z87.891 Personal history of nicotine dependence
CPT/HCPCS: 36415; 80053; 85027; 93971; 99283; 99284

== ENCOUNTER 2022-11-04 07:47 | Outpatient (REF) | payer MEDICARE, SELFPAY ==
[2022-11-04 10:59] LABS: Alanine Aminotransferase 19 U/L (0-31); Albumin Level 4.2 g/dL (3.5-5.0); Alkaline Phosphatase 63 U/L (39-117); Anion Gap 15 (12-20); Aspartate Amino Transferase 15 U/L (5-31); Bilirubin Total 3.6 mg/dL (0.0-1.0); Blood Urea Nitrogen 10 mg/dL (9-16); Calcium 9.8 mg/dL (8.4-10.2); Carbon Dioxide 27 mmol/L (22-29); Chloride 102 mmol/L (96-108); Estimated Glomerular Filt Rate > 60; Glucose Random 227 mg/dL (60-115); Phosphorus 4.2 mg/dL (2.7-4.5); Potassium 4.1 mmol/L (3.3-5.1); Sodium 140 mmol/L (135-145); Total Protein 6.6 g/dL (6.5-8.0)
[2022-11-04 11:16] LABS: Free T4 (Free Thyroxine) 1.32 ng/dL (0.71-1.85); Vitamin D 25-OH Total 35.3 ng/mL (>30)
[2022-11-06 13:29] LABS: Calcium (PTHI) 9.5 mg/dL (8.6-10.4); PTHI <6 pg/mL (16-77)
== END 2022-11-04 07:48 | disposition home or self-care (01) ==
LOC: HO.10HDL 07:47
PROVIDERS: Visit Provider Internal Medicine
DX: E04.2 Nontoxic multinodular goiter (principal); E55.9 Vitamin D deficiency, unspecified; E21.3 Hyperparathyroidism, unspecified
CPT/HCPCS: 36415; 80053; 82306; 83970; 84100; 84439; 84443

== ENCOUNTER → 2022-11-09 08:49 | Outpatient (BNVA) | payer MEDICARE, SELFPAY | PROVIDERS: PCP Internal Medicine; Visit Provider Internal Medicine | DX: M81.0 Age-related osteoporosis without current pathological fracture (principal); E21.3 Hyperparathyroidism, unspecified; E03.9 Hypothyroidism, unspecified; E55.9 Vitamin D deficiency, unspecified | CPT/HCPCS: 82947; 83036; 99212 ==

== ENCOUNTER 2022-12-28 09:02 | Outpatient (REF) | payer MEDICARE, SELFPAY ==
[2022-12-28 11:45] LABS: Estimated Average Glucose 183 mg/dL
[2022-12-28 12:04] LABS: Alanine Aminotransferase 14 U/L (0-31); Albumin Level 4.2 g/dL (3.5-5.0); Alkaline Phosphatase 68 U/L (39-117); Anion Gap 17 (12-20); Aspartate Amino Transferase 12 U/L (5-31); Bilirubin Total 4.1 mg/dL (0.0-1.0); Blood Urea Nitrogen 11 mg/dL (9-16); Calcium 9.8 mg/dL (8.4-10.2); Carbon Dioxide 25 mmol/L (22-29); Chloride 102 mmol/L (96-108); Cholesterol 111 mg/dL; Estimated Glomerular Filt Rate > 60; Glucose Fasting 254 mg/dL (60-99); Glucose Random 252 mg/dL (60-115); HDL Cholesterol 37 mg/dL; LDL Cholesterol Calculated 19 mg/dl; Phosphorus 4.4 mg/dL (2.7-4.5); Potassium 4.4 mmol/L (3.3-5.1); Sodium 140 mmol/L (135-145); Total Protein 6.7 g/dL (6.5-8.0); Triglycerides 276 mg/dL
[2022-12-28 12:06] LABS: Free T4 (Free Thyroxine) 1.18 ng/dL (0.71-1.85)
[2022-12-28 12:12] LABS: Creatinine Urine 368.61 mg/dL; Microalbum/Creatinine Ratio Ur 36.6 ug/mg cr
[2022-12-28 12:23] LABS: Folate 15.1 ng/mL (> or = 4.0); Thyroid Stimulating Hormone 0.39 uIU/mL (0.32-4.0); Vitamin B12 317 pg/mL (200-900)
[2022-12-29 12:39] LABS: Calcium (PTHI) 9.5 mg/dL (8.6-10.4); PTHI 7 pg/mL (16-77)
[2022-12-31 20:28] LABS: Alkaline Phosphatase Bone 7.9 mcg/L (see note)
== END 2022-12-28 09:03 | disposition home or self-care (01) ==
LOC: HO.HMGCLDS 09:02
PROVIDERS: Internal Medicine; PCP Internal Medicine; Visit Provider Internal Medicine
DX: E53.8 Deficiency of other specified B group vitamins (principal); E78.5 Hyperlipidemia, unspecified; I10 Essential (primary) hypertension; E11.65 Type 2 diabetes mellitus with hyperglycemia; E03.9 Hypothyroidism, unspecified; E04.2 Nontoxic multinodular goiter; E21.0 Primary hyperparathyroidism; E55.9 Vitamin D deficiency, unspecified
CPT/HCPCS: 36415; 80048; 80053; 80061; 82043; 82306; 82607; 82746; 83036; 83970; 84075; 84100; 84439; 84443

== ENCOUNTER 2023-01-05 06:52 | Outpatient (REF) | payer MEDICARE, SELFPAY ==
[2023-01-14 08:44] LABS: N-Telopeptide 17 (see note); NTXCreaRU 82 mg/dL (20-275)
== END 2023-01-05 06:53 | disposition home or self-care (01) ==
LOC: HO.HMGCLNP 06:52
PROVIDERS: PCP Internal Medicine; Visit Provider Internal Medicine
DX: E21.0 Primary hyperparathyroidism (principal)
CPT/HCPCS: 82523

== ENCOUNTER 2023-02-10 12:02 | Outpatient (AMB) | payer MEDICARE, SELFPAY ==
--- NOTE | 2023-02-10 12:33 | MHC.PC.OV ---
Vital Signs 02/10/23 12:37 Height 5 ft 5 in Weight 181 lb BMI 30.1 BP 136/72 Blood Pressure Location Lt brachial Position Sitting Pulse 67 Pulse Source Pulse Oximeter Pulse Oximetry (%) 95 Oxygen Delivery Method Room Air Intake Visit Reasons: [facility]/02-19-23/Cataract left eye Intake Note: Pt is here today for her pre-op for Lt eye cataract on 02/19/23 Dr. William Allergies cat dander [CAT DANDER] Allergy (Mild, Verified 02/10/23 12:55) ITCHY EYES cat's claw Allergy (Unknown, Verified 02/10/23 12:55) Unknown Medication List - Last Reconciled 02/10/23 by Allegra Lo MD apixaban (Eliquis) 5 mg PO Q12H atorvastatin 40 mg PO DAILY blood sugar diagnostic (FreeStyle Lite Strips) twice a day blood-glucose meter (FreeStyle Lite Meter kit) As directed cholecalciferol (vitamin D3) (Vitamin D3) 50 mcg PO DAILY Januvia (sitagliptin phosphate) 100 mg PO DAILY NS lancets As directed twice a day levothyroxine 112 mcg PO DAILY 30 days lisinopril 10 mg PO DAILY 90 days mecobalamin (vitamin B12) 1,000 mcg sublingual DAILY 90 days metformin 1,000 mg PO BID metoprolol succinate ER 100 mg PO DAILY 90 days nifedipine ER 30 mg PO DAILY Tobacco use date assessed: 02/10/23 Fall risk assessment: 1 Fall in past year Last assessed Fall Risk: 02/10/23 Dental Screening Dental Screen Date: 02/10/23 Did you have a dental visit in the last 12 months?: Yes Did you have a dental problem in the last 6 months where you did not have access to dental care?: Yes Was dental information given to patient?: Patient has dentist HPI [facility]/02-19-23/Cataract left eye HPI Details 82-year-old lady with diabetes mellitus, dyslipidemia, history of hyperparathyroidism, has hypothyroidism, paroxysmal atrial fibrillation currently on Eliquis, and osteoporosis, here today for preoperative examination for back surgery on her left eye scheduled for 02/19/2023, requested by Dr. William. She has been feeling well, except for stiffness and muscle aches on her lower back and buttock. She had a fall and landed on her back 01/22/2023 while on a cruise. No injuries sustained. Laboratory Tests 11/09/22 12/28/22 12/28/22 09:03 09:22 09:22 Sodium 140 Potassium 4.4 Chloride 102 Carbon Dioxide 25 Anion Gap 17 BUN 11 Creatinine 0.80 Estimated GFR > 60 Random Glucose 252 H Fasting Glucose 254 H Estimat Average Gl ucose 183 Hgb A1c (Clinic) 7.0 H Hemoglobin A1c % 8.0 Calcium 9.8 Vitamin B12 317 25-OH Vitamin D To joaquin Folate 15.1 TSH 0.39 Free T4 PTH Intact Calcium (PTH Intac t) 12/28/22 12/28/22 09:22 09:22 Sodium Potassium Chloride Carbon Dioxide Anion Gap BUN Creatinine Estimated GFR Random Glucose Fasting Glucose Estimat Average Gl ucose Hgb A1c (Clinic) Hemoglobin A1c % Calcium Vitamin B12 25-OH Vitamin D To joaquin 32.0 Folate TSH Free T4 1.18 PTH Intact 7 L Calcium (PTH Intac t) 9.5 Laboratory Tests 12/28/22 09:22 AST 12 ALT 14 Triglycerides 276 Cholesterol 111 LDL Cholesterol, C alc 19 HDL Cholesterol 37 PFSH Medical History Atherosclerotic heart disease B12 deficiency CAD (coronary artery disease) Diabetes mellitus with hyperglycemia, without long-term current use of insulin Diabetes type 2, controlled Dyslipidemia Elevated bilirubin Ex-smoker History of multinodular goiter History of primary hyperparathyroidism Hypertension Hypertrophic toenail Hypothyroidism Osteoporosis Paroxysmal atrial fibrillation Vitamin D deficiency Surgical History H/O total thyroidectomy History of parathyroidectomy Hx of cataract Hx of cholecystectomy Hx of hysterectomy Stented coronary artery Family History Father Sudden cardiac CVD (cardiovascular disease) Mother No problems noted. Sister Substance use disorder Social History Household Members Other:: 2 daughters Housing: House Alcohol intake: current Alcohol intake frequency: a few times a month Alcohol type: wine Patient Tobacco Use Status: Former Tobacco user Years Smoked: 30 years e-Cigarette/Vaping Use: Never Used Current occupational status: retired Cognitive needs: No Hearing needs: No Vision needs: Yes Questionnaire Thrive Questionnaire Date Thrive assessed: 12/28/22 AUDIT C Alcohol Use Questionnaire (AUDIT-C) 1. How often do you have a drink containing alcohol?: Monthly or less 2. How many drinks containing alcohol do you have on a typical day when you are drinking?: 1 or 2 3. How often do you have six or more drinks on one occasion?: Never Total Score: 1 ELVIS-7 AMB Questionnaire ELVIS-7 Date ELVIS - 7 assessed: 12/28/22 Source: Developed by Drs. Alphonse Mckenna, Karen Patton, Riaz Faye and colleagues, with an educational molly from [employer]. Review of Systems Const Denies chills, Denies fatigue, Denies fever(s), Denies headache(s) and Denies weakness Eyes Details: Goes to [facility] in [place], currently diagnosed with dry macular degeneration and cataracts in left Reports blurry vision ENT Denies dizziness and Denies headache(s) Card Denies chest pain, Denies leg edema, Denies lightheadedness, Denies palpitations, Denies dyspnea and Denies orthopnea Resp Denies cough and Denies dyspnea GI Denies change in stool character and Denies heartburn Reports no additional complaints Musc Denies muscle weakness, Denies numbness, Denies radiating pain into limb and Denies tingling Skin/Breast Denies lesions and Denies rash Neuro Denies dizziness, Denies headache(s), Denies numbness, Denies tingling and Denies weakness Psych Reports no additional complaints Endo Denies fatigue and Denies palpitations Alessandro/Lymph Denies easy bleeding and Denies easy bruising Aller/Immun Reports no additional complaints Physical exam (Primary Care) Vital Signs: Last Vital Signs Pulse 67 02/10/23 12:37 BP 136/72 02/10/23 12:37 Pulse Ox 95 02/10/23 12:37 Oxygen Delivery Method Room Air 02/10/23 12:37 BMI result Body Mass Index 30.1 Tobacco/Smoking Status: Tobacco use Status Tobacco use date assessed 02/10/23 02/10/23 12:42 Patient Tobacco Use Status Former Tobacco user 02/10/23 12:36 e-Cigarette/Vaping Use Never Used 02/10/23 12:36 Thrive Assessment: Date of Thrive Assessment Date Thrive assessed 12/28/22 02/10/23 12:36 Const General: comfortable, no acute distress and alert Nutritional Appearance: obese Orientation/consciousness: patient oriented x3 Limitations: ambulation with cane HENMT Head: Yes normocephalic Ears: external ears normal General nose exam: Normal external nose present and No nasal discharge present Face and sinus: Yes face symmetric Mouth: Normal oral and palatal mucosa present and moist mucous membranes Eyes General: appearance normal, both eyes and all related structures Neck Neck: Yes full ROM, Yes no lymphadenopathy and Yes supple Chest Chest palpation & inspection: normal inspection of the chest and normal palpation of entire chest wall Resp Auscultation: clear to auscultation bilaterally Cardio Other: S1-S2 present regular rate and rhythm GI Palpation (GI): Soft to palpation, nontender, no guarding and no masses Auscultation: normal bowel sounds Back/Spine/Pelvis Back: No back tenderness Skin Nails: yellow and thickened (Bilaterally) Neuro General: patient oriented x3, tone normal, moves all extremities, no focal motor deficits and CN's II-XI intact bilaterally Extrem General: Yes full ROM, Yes no joint enlargement, Yes no pedal edema and Yes no calf tenderness Assessment and Plan Assessment & Plan (1) Preoperative examination: Code(s): Z01.818 - Encounter for other preprocedural examination Plan: 82 year old lady here for pre-op clearance for left cataract surgery scheduled for 02/19/[address] William. She has known coronary artery disease and paroxysmal atrial fibrillation currently on apixaban, has diabetes mellitus with latest hemoglobin A1c at 8%, has dyslipidemia hypertension currently stable controlled with present treatment. Preoperative exam is unremarkable . Patient with low cardiac risk index for proposed surgery (2) Dyslipidemia: Code(s): E78.5 - Hyperlipidemia, unspecified Plan: Reviewed recent fasting lipid profile with patient with elevated triglycerides, but LDL cholesterol and HDL are within normal limits. . Continue with Atorvastatin 40 mg daily , in addition to adherence to low-cholesterol diet and regular exercise, at least 30 minutes 3 to 4 times a week. Advised patient to make healthy food choices, eat more fruits, vegetables, whole grains, wild caught fish and low-fat dairy. Limit amount of meat and fried or fatty food products, as well as processed foods and fast foods. (3) Hypertension: Code(s): I10 - Essential (primary) hypertension Qualifiers: Hypertension type: essential hypertension Qualified Code(s): I10 - Essential (primary) hypertension Plan: Blood pressure at goal of less than 130/80. Continue with current medication. Reinforced importance of following a low sodium diet, getting regular exercise, and lowering stress levels. (4) Paroxysmal atrial fibrillation: Code(s): I48.0 - Paroxysmal atrial fibrillation Plan: Currently in normal sinus rhythm, continued on apixaban 5 mg twice a day (5) CAD (coronary artery disease): Code(s): I25.10 - Atherosclerotic heart disease of tang[place]q coronary artery without angina pectoris Plan: Continued on metoprolol succinate ER 100 mg daily (6) Anticoagulant long-term use: Comment: Paroxysmal AFib , DVT on apixaban Code(s): Z79.01 - superintendent container terminal (current) use of anticoagulants Plan: Currently on apixaban (7) Hypothyroidism: Code(s): E03.9 - Hypothyroidism, unspecified Plan: Status post total thyroidectomy earlier this year. Latest Thyroid levels are within normal limits, continued on levothyroxine 112 mcg daily (8) Diabetes mellitus with hyperglycemia, without long-term current use of insulin: Code(s): E11.65 - Type 2 diabetes mellitus with hyperglycemia Plan: Currently being followed by endocrine clinic in [place], currently on Januvia 100 mg daily and metformin 1000 mg twice a day. Patient reminded to adhere to recommended diet (9) History of primary hyperparathyroidism: Code(s): Z86.39 - Personal history of other endocrine, nutritional and metabolic disease Plan: Status post hyper parathyroidectomy earlier this year, followed by endocrine clinic Coding Level of Care Code Est Pt Level 4 (12150) Diagnoses Preoperative examination Z01.818 Dyslipidemia E78.5 Hypertension I10 Hypertension type: essential hypertension Paroxysmal atrial fibrillation I48.0 CAD (coronary artery disease) I25.10 Anticoagulant long-term use Z79.01 Hypothyroidism E03.9 Diabetes mellitus with hyperglycemia, without long-term current use of insulin E11.65 History of primary hyperparathyroidism Z86.39
[2023-02-10 12:37] VITALS: BP 136/72; PULSE 67; O2SAT 95; BMI 30.1
== END 2023-02-10 13:30 | disposition home or self-care (01) ==
PROVIDERS: PCP Internal Medicine; Visit Provider Internal Medicine
DX: I10 Essential (primary) hypertension (principal); E03.9 Hypothyroidism, unspecified; Z01.818 Encounter for other preprocedural examination; Z79.01 Long term (current) use of anticoagulants; E78.5 Hyperlipidemia, unspecified; I48.0 Paroxysmal atrial fibrillation; I25.10 Atherosclerotic heart disease of native coronary artery without angina pectoris; E11.65 Type 2 diabetes mellitus with hyperglycemia; Z86.39 Personal history of other endocrine, nutritional and metabolic disease
CPT/HCPCS: 99214

== ENCOUNTER 2023-03-16 09:34 | Outpatient (AMB) | payer MEDICARE, SELFPAY ==
[2023-03-16 09:37] VITALS: BP 110/70; PULSE 70; BMI 29.0
--- NOTE | 2023-03-16 09:37 | MHC.OFFVIS ---
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 Allergies cat dander [CAT DANDER] Allergy (Mild, Verified 02/10/23 12:55) ITCHY EYES cat's claw Allergy (Unknown, Verified 02/10/23 12:55) Unknown Medication List - Last Reconciled 03/16/23 by Erasto Hanley MD apixaban (Eliquis) 5 mg PO Q12H atorvastatin 40 mg PO DAILY blood sugar diagnostic (FreeStyle Lite Strips) twice a day blood-glucose meter (FreeStyle Lite Meter kit) As directed cholecalciferol (vitamin D3) (Vitamin D3) 50 mcg PO DAILY Januvia (sitagliptin phosphate) 100 mg PO DAILY NS lancets As directed twice a day levothyroxine 112 mcg PO DAILY lisinopril 10 mg PO DAILY 90 days mecobalamin (vitamin B12) 1,000 mcg sublingual DAILY 90 days metformin 1,000 mg PO BID metoprolol succinate ER 100 mg PO DAILY 90 days nifedipine ER 30 mg PO DAILY HPI HPI Comments History of Present Illness Details Angelika comes for follow-up. She occasionally gets symptoms of palpitation there are not long-lasting when she has more caffeine in a day. She has not had any major bleeding issues or neurologic events. No prolonged irregular heartbeat. No worsening symptoms of shortness of breath. No exertional chest pain. Takes all her medications regularly. No heart failure symptoms. Her last LDL is 19 mg/dL the triglycerides were in the 270 range. Her diabetes still remains not well controlled. [facility] Medical History Atherosclerotic heart disease B12 deficiency CAD (coronary artery disease) Diabetes mellitus with hyperglycemia, without long-term current use of insulin Diabetes type 2, controlled Dyslipidemia Elevated bilirubin Ex-smoker History of multinodular goiter History of primary hyperparathyroidism Hypertension Hypertrophic toenail Hypothyroidism Osteoporosis Paroxysmal atrial fibrillation Vitamin D deficiency Surgical History H/O total thyroidectomy History of parathyroidectomy Hx of cataract Hx of cholecystectomy Hx of hysterectomy Stented coronary artery Family History Father Sudden cardiac CVD (cardiovascular disease) Mother No problems noted. Sister Substance use disorder Social History Household Members Other:: 2 daughters Housing: House Alcohol intake: current Alcohol intake frequency: a few times a month Alcohol type: wine Patient Tobacco Use Status: Former Tobacco user Years Smoked: 30 years e-Cigarette/Vaping Use: Never Used Current occupational status: retired Cognitive needs: No Hearing needs: No Vision needs: Yes Review of Systems Const Denies chills, Denies fatigue, Denies fever(s), Denies frequent falls, Denies weakness, Denies weight gain and Denies weight loss ENT Denies dizziness Card Denies chest pain, Denies leg edema, Denies lightheadedness, Denies palpitations, Denies dyspnea, Denies dyspnea on exertion, Denies orthopnea and Denies other (loss of consciousness) Resp Denies cough, Denies dyspnea and Denies dyspnea on exertion GI Denies hematochezia and Denies change in stool character Musc Denies abnormal gait, Denies muscle weakness, Denies numbness, Denies radiating pain into limb and Denies tingling Neuro Denies abnormal gait, Denies dizziness, Denies frequent falls, Denies numbness, Denies tingling and Denies weakness Endo Denies fatigue and Denies palpitations Physical Exam Vital Signs: Last Vital Signs Pulse 70 03/16/23 09:37 BP 110/70 03/16/23 09:37 BMI result Body Mass Index 29.0 Const General: cooperative, comfortable, no acute distress, alert and awake Nutritional Appearance: obese Orientation/consciousness: patient oriented x3 Limitations: ambulation with cane Neck Neck: Yes trachea midline, Yes supple and Yes no JVD Chest Chest palpation & inspection: normal inspection of the chest Resp Effort & Inspection: normal respiratory effort Auscultation: clear to auscultation bilaterally Cardio Jugular venous distension: no JVD Palpation: normal PMI Rate: regular rate Rhythm: regular rhythm Heart sounds: S1 normal heart sound present, S2 normal heart sound present and Murmur heart sound present systolic early, decrescendo and crescendo GI Auscultation: normal bowel sounds Skin General skin exam: no rashes or lesions noted Neuro General: patient oriented x3 and no focal motor deficits Extrem General: Yes no clubbing, cyanosis or edema Psych Appearance: grossly normal Office Procedures EKG Details: EKG shows normal sinus rhythm with right bundle-branch block with inferior Q-waves [id number], Complete Assessment & Plan Assessment & Plan (1) CAD (coronary artery disease): Code(s): I25.10 - Atherosclerotic heart disease of platinum coronary artery without angina pectoris Plan: CAD with prior inferior WA and RCA stenting with no current symptoms. CAD stable. Continue aggressive risk factor modification. Currently on full oral anticoagulation with therefore avoid aspirin therapy on top of her oral anticoagulation therapy to reduce bleeding risk. Blood pressure is currently well optimized. Continue high-intensity statin therapy. LDL is extremely well optimized. Needs better control of diabetes with goal triglycerides less than 200 mg/dL. Diabetes well controlled triglycerides remain elevated, can consider adding Vascepa to her regimen and reducing statin dose. Advised to call me with any new symptoms. Advised to maintain activity level as tolerated. (2) Paroxysmal atrial fibrillation: Code(s): I48.0 - Paroxysmal atrial fibrillation Plan: Paroxysmal atrial fibrillation which is overall suppressed. Minor symptoms at current time. Avoid antiarrhythmic drug therapy but will pursue rhythm control approach. Continue metoprolol therapy. avoidance of stimulants was discussed continue full oral anticoagulation with Eliquis at 5 mg b.i.d.. Semi annual renal function test should be pursued. Will follow up in the clinic in 1 year's time after an echocardiogram. Thank you for allowing me to partake in her care Coding Level of Care Code Est Pt Level 4 (57695) Diagnoses CAD (coronary artery disease) I25.10 Paroxysmal atrial fibrillation I48.0 CPT Codes EKG - CPT: 29779-[id number], Complete ([id number])
== END 2023-03-16 09:58 | disposition home or self-care (01) ==
PROVIDERS: PCP Internal Medicine; Referring Provider Internal Medicine; Visit Provider Internal Medicine Cardiovascular Disease
DX: I25.10 Atherosclerotic heart disease of native coronary artery without angina pectoris (principal); I48.0 Paroxysmal atrial fibrillation
CPT/HCPCS: 93010; 99214

== ENCOUNTER → 2023-03-16 09:34 | Outpatient (BNVA) | payer MEDICARE, SELFPAY | PROVIDERS: PCP Internal Medicine; Referring Provider Internal Medicine; Visit Provider Internal Medicine Cardiovascular Disease | DX: I25.10 Atherosclerotic heart disease of native coronary artery without angina pectoris (principal); I48.0 Paroxysmal atrial fibrillation; Z79.01 Long term (current) use of anticoagulants; Z79.899 Other long term (current) drug therapy | CPT/HCPCS: 93005; 99212 ==

== ENCOUNTER 2023-03-29 06:08 | Outpatient (REF) | payer MEDICARE, SELFPAY ==
[2023-03-29 12:03] LABS: Alanine Aminotransferase 17 U/L (0-31); Aspartate Amino Transferase 16 U/L (5-31)
== END 2023-03-29 06:09 | disposition home or self-care (01) ==
LOC: HO.HMGCLDS 06:08
PROVIDERS: PCP Internal Medicine; Visit Provider Internal Medicine
DX: I10 Essential (primary) hypertension (principal); E78.5 Hyperlipidemia, unspecified; E53.8 Deficiency of other specified B group vitamins; E11.9 Type 2 diabetes mellitus without complications
CPT/HCPCS: 36415; 84450; 84460

== ENCOUNTER 2023-04-02 10:41 | Outpatient (AMB) | payer MEDICARE, SELFPAY ==
[2023-04-02 10:42] VITALS: BP 136/80; PULSE 82; O2SAT 97; BMI 29.9
--- NOTE | 2023-04-02 10:42 | MHC.PC.OV ---
Vital Signs 04/02/23 10:42 Height 5 ft 5 in Weight 179 lb 8 oz BMI 29.9 BP 136/80 Blood Pressure Location Rt brachial Position Sitting Pulse 82 Pulse Source Pulse Oximeter Pulse Oximetry (%) 97 Intake Visit Reasons: Follow up Intake Note: pt is here for follow up Drafter Assistant Required: No Accompanied by: Self / Same As Patient Allergies cat dander [CAT DANDER] Allergy (Mild, Verified 01/04/24 08:27) ITCHY EYES cat's claw Allergy (Unknown, Verified 01/04/24 08:27) Unknown Medication List - Last Reconciled 04/02/23 by Allegra Lo MD apixaban (Eliquis) 5 mg PO Q12H atorvastatin 40 mg PO DAILY blood sugar diagnostic (FreeStyle Lite Strips) twice a day blood-glucose meter (FreeStyle Lite Meter kit) As directed cholecalciferol (vitamin D3) (Vitamin D3) 50 mcg PO DAILY Januvia (sitagliptin phosphate) 100 mg PO DAILY NS lancets As directed twice a day levothyroxine 112 mcg PO DAILY lisinopril 10 mg PO DAILY 90 days mecobalamin (vitamin B12) 1,000 mcg sublingual DAILY 90 days metformin 1,000 mg PO BID metoprolol succinate ER 100 mg PO DAILY 90 days nifedipine ER 30 mg PO DAILY Tobacco use date assessed: 04/02/23 Fall risk assessment: No Falls in past year Last assessed Fall Risk: 04/02/23 Dental Screening Dental Screen Date: 04/02/23 Did you have a dental visit in the last 12 months?: Yes Did you have a dental problem in the last 6 months where you did not have access to dental care?: No Was dental information given to patient?: Patient has dentist HPI Follow up HPI Details 82-year-old lady with history of hyperparathyroidism s/p parathyroidectomy 08/26/2022 with intraoperative PTH declining from 34 to 8, indicative of cure; has osteoporosis, to remain off all antiresorptive for 2 years postoperatively to allow time for bone remineralization and repeat DEXA scan in 2024; has postoperative hypothyroidism; paroxysmal atrial fibrillation currently on Eliquis followed by cardiology, has diabetes mellitus, hypertension and hyperlipidemia, here today for follow-up. Last labs in 01/05/2023 showed poorly controlled diabetes with hemoglobin A1c at 8% at lipids, calcium and thyroid levels were within normal limits. She has been feeling well, with new complaints at present time. Up-to-date with her diabetes eye screening, goes to [facility] Medical History (Updated 01/05/24 @ 02:47 by Allegra Lo MD) Macular degeneration, left eye Gilbert disease History of primary hyperparathyroidism Diabetes mellitus with hyperglycemia, without long-term current use of insulin Hypothyroidism History of multinodular goiter Hypertrophic toenail Elevated bilirubin Vitamin D deficiency Ex-smoker CAD (coronary artery disease) Atherosclerotic heart disease Paroxysmal atrial fibrillation Hypertension Dyslipidemia B12 deficiency Osteoporosis Diabetes type 2, controlled Surgical History Hx of cataract History of parathyroidectomy H/O total thyroidectomy Stented coronary artery Hx of cholecystectomy Hx of hysterectomy Family History Father Sudden cardiac CVD (cardiovascular disease) Mother No problems noted. Sister Substance use disorder Social History Household Members Other:: 2 daughters Housing: House Alcohol intake: current Alcohol intake frequency: a few times a month Alcohol type: wine Patient Tobacco Use Status: Former Tobacco user Years Smoked: 30 years e-Cigarette/Vaping Use: Never Used Current occupational status: retired Cognitive needs: No Hearing needs: No Vision needs: Yes Questionnaire Thrive Questionnaire Date Thrive assessed: 12/28/22 ELVIS-7 AMB Questionnaire LEVIS-7 Date ELVIS - 7 assessed: 12/28/22 Source: Developed by Drs. Alphonse Mckenna, Karen Patton, Riaz Faye and colleagues, with an educational molly from [employer]. Review of Systems Const Denies fatigue, Denies fever(s), Denies frequent falls and Denies weakness Eyes Details: Sees Dr. Bry William at [facility] 12/04/2022 with no diabetic retinopathy seen Denies change in vision ENT Denies dizziness Card Denies chest pain, Denies leg edema, Denies lightheadedness, Denies palpitations and Denies dyspnea on exertion Resp Denies cough and Denies dyspnea on exertion GI Reports no additional complaints Reports no additional complaints Musc Denies abnormal gait, Denies muscle weakness, Denies numbness, Denies radiating pain into limb and Denies tingling Neuro Denies abnormal gait, Denies dizziness, Denies frequent falls, Denies numbness, Denies tingling and Denies weakness Endo Denies fatigue and Denies palpitations Alessandro/Lymph Reports no additional complaints Aller/Immun Reports no additional complaints Physical exam (Primary Care) Vital Signs: Last Vital Signs Pulse 82 04/02/23 10:42 BP 136/80 04/02/23 10:42 Pulse Ox 97 04/02/23 10:42 BMI result Body Mass Index 29.9 Tobacco/Smoking Status: Tobacco use Status Tobacco use date assessed 04/02/23 04/02/23 10:43 Patient Tobacco Use Status Former Tobacco user 04/02/23 10:43 e-Cigarette/Vaping Use Never Used 04/02/23 10:43 Thrive Assessment: Date of Thrive Assessment Date Thrive assessed 12/28/22 04/02/23 10:43 Const General: comfortable, no acute distress and alert Nutritional Appearance: obese Orientation/consciousness: patient oriented x3 Limitations: ambulation with cane HENMT Teeth and gingiva: dentures (Upper) Eyes General: appearance normal, both eyes and all related structures Neck Neck: Yes full ROM, Yes no lymphadenopathy and Yes supple Resp Auscultation: clear to auscultation bilaterally Cardio Other: S1-S2 present regular rate and rhythm, positive systolic murmur heard GI Other: , bowel sounds, soft, nontender with no mass palpated Skin General skin exam: no rashes or lesions noted and no purpura Neuro General: patient oriented x3 Extrem General: Yes full ROM and Yes no joint enlargement Assessment and Plan Assessment & Plan (1) Diabetes mellitus with hyperglycemia, without long-term current use of insulin: Code(s): E11.65 - Type 2 diabetes mellitus with hyperglycemia Plan: Last hemoglobin A1c 01/05/2023 was at 8%. Continue metformin 1000 mg 1 tab twice a day, and Januvia 100 mg daily. Will add Jardiance 25 mg per tablet to take once a day in a.m. an hour before breakfast. Discussed possible side effects of medication which may include polyuria and increased risk for yeast infection. Continue adherence to diabetic diet and stay active. Up-to-date with her diabetes retinopathy screening, goes to [facility] (2) Hypothyroidism: Code(s): E03.9 - Hypothyroidism, unspecified Plan: Ordered TSH and free T4 levels in the meantime continue with levothyroxine 112 mcg once daily in a.m. an hour before breakfast (3) Paroxysmal atrial fibrillation: Code(s): I48.0 - Paroxysmal atrial fibrillation (4) Hypertension: Code(s): I10 - Essential (primary) hypertension Qualifiers: Hypertension type: essential hypertension Qualified Code(s): I10 - Essential (primary) hypertension Plan: On Eliquis, and metoprolol succinate ER 100 mg daily, followed by cardiology (5) Dyslipidemia: Code(s): E78.5 - Hyperlipidemia, unspecified Plan: Fasting lipids ordered today, on atorvastatin 40 mg once daily (6) B12 deficiency: Code(s): E53.8 - Deficiency of other specified B group vitamins Plan: Will check vitamin B12 level (7) Osteoporosis: Code(s): M81.0 - Age-related osteoporosis without current pathological fracture Qualifiers: Osteoporosis type: other Presence of current pathological fracture: without current pathological fracture Qualified Code(s): M81.8 - Other osteoporosis without current pathological fracture Plan: Likely related to her history of hyperparathyroidism, s/p parathyroidectomy 08/26/2022 with intraoperative PTH declining from 34 to 8, indicative of cure; has osteoporosis, to remain off all antiresorptive for 2 years postoperatively to allow time for bone remineralization and repeat DEXA scan in 2024. Patient previously followed by Dr. Sharma now to see Dr. Roland Orders: Orders Hemoglobin A1c 04/02/23 E11.65 - Type 2 diabetes mellitus with hyperglycemia, E03.9 - Hypothyroidism, unspecified, R17 - Unspecified jaundice, E80.4 - Gilbert syndrome, I25.10 - Atherosclerotic heart disease of solomon coronary artery without angina pectoris, I48.0 - Paroxysmal atrial fibrillation, I10 - Essential (primary) hypertension, E78.5 - Hyperlipidemia, unspecified, E53.8 - Deficiency of other specified B group vitamins, M81.0 - Age-related osteoporosis without current pathological fracture Comprehensive [place]. Panel Fast 04/02/23 E11.65 - Type 2 diabetes mellitus with hyperglycemia, E03.9 - Hypothyroidism, unspecified, R17 - Unspecified jaundice, E80.4 - Gilbert syndrome, I25.10 - Atherosclerotic heart disease of solomon coronary artery without angina pectoris, I48.0 - Paroxysmal atrial fibrillation, I10 - Essential (primary) hypertension, E78.5 - Hyperlipidemia, unspecified, E53.8 - Deficiency of other specified B group vitamins, M81.0 - Age-related osteoporosis without current pathological fracture Thyroid Stimulating Hormone 04/02/23 E11.65 - Type 2 diabetes mellitus with hyperglycemia, E03.9 - Hypothyroidism, unspecified, R17 - Unspecified jaundice, E80.4 - Gilbert syndrome, I25.10 - Atherosclerotic heart disease of solomon coronary artery without angina pectoris, I48.0 - Paroxysmal atrial fibrillation, I10 - Essential (primary) hypertension, E78.5 - Hyperlipidemia, unspecified, E53.8 - Deficiency of other specified B group vitamins, M81.0 - Age-related osteoporosis without current pathological fracture Lipid Panel 04/02/23 E11.65 - Type 2 diabetes mellitus with hyperglycemia, E03.9 - Hypothyroidism, unspecified, R17 - Unspecified jaundice, E80.4 - Gilbert syndrome, I25.10 - Atherosclerotic heart disease of solomon coronary artery without angina pectoris, I48.0 - Paroxysmal atrial fibrillation, I10 - Essential (primary) hypertension, E78.5 - Hyperlipidemia, unspecified, E53.8 - Deficiency of other specified B group vitamins, M81.0 - Age-related osteoporosis without current pathological fracture Free T4 (Free Thyroxine) 04/02/23 E03.9 - Hypothyroidism, unspecified, E11.65 - Type 2 diabetes mellitus with hyperglycemia, R17 - Unspecified jaundice, E80.4 - Gilbert syndrome, I25.10 - Atherosclerotic heart disease of solomon coronary artery without angina pectoris, I48.0 - Paroxysmal atrial fibrillation, I10 - Essential (primary) hypertension, E78.5 - Hyperlipidemia, unspecified, E53.8 - Deficiency of other specified B group vitamins, M81.0 - Age-related osteoporosis without current pathological fracture Vitamin D 25-OH Total 04/02/23 E11.65 - Type 2 diabetes mellitus with hyperglycemia, E03.9 - Hypothyroidism, unspecified, R17 - Unspecified jaundice, E80.4 - Gilbert syndrome, I25.10 - Atherosclerotic heart disease of solomon coronary artery without angina pectoris, I48.0 - Paroxysmal atrial fibrillation, I10 - Essential (primary) hypertension, E78.5 - Hyperlipidemia, unspecified, E53.8 - Deficiency of other specified B group vitamins, M81.0 - Age-related osteoporosis without current pathological fracture Vitamin B12 and Folate 04/02/23 E11.65 - Type 2 diabetes mellitus with hyperglycemia, E03.9 - Hypothyroidism, unspecified, R17 - Unspecified jaundice, E80.4 - Gilbert syndrome, I25.10 - Atherosclerotic heart disease of solomon coronary artery without angina pectoris, I48.0 - Paroxysmal atrial fibrillation, I10 - Essential (primary) hypertension, E78.5 - Hyperlipidemia, unspecified, E53.8 - Deficiency of other specified B group vitamins, M81.0 - Age-related osteoporosis without current pathological fracture Medications: New Jardiance (empagliflozin) 25 mg PO QAM 30 tabs 5RF NS Coding Level of Care Code Est Pt Level 4 (66542) Complex EM visit Add On G2211 Diagnoses Diabetes mellitus with hyperglycemia, without long-term current use of insulin E11.65 Hypothyroidism E03.9 Paroxysmal atrial fibrillation I48.0 Essential hypertension I10 Hypertension type: essential hypertension Dyslipidemia E78.5 B12 deficiency E53.8 Other osteoporosis without current pathological fracture M81.8 Osteoporosis type: other Presence of current pathological fracture: without current pathological fracture
== END 2023-04-02 11:35 | disposition home or self-care (01) ==
PROVIDERS: PCP Internal Medicine; Visit Provider Internal Medicine
DX: E11.65 Type 2 diabetes mellitus with hyperglycemia (principal); E03.9 Hypothyroidism, unspecified; I48.0 Paroxysmal atrial fibrillation; I10 Essential (primary) hypertension; E78.5 Hyperlipidemia, unspecified; E53.8 Deficiency of other specified B group vitamins; M81.8 Other osteoporosis without current pathological fracture
CPT/HCPCS: 99214; G2211

== ENCOUNTER 2023-06-30 06:25 | Outpatient (REF) | payer MEDICARE, SELFPAY ==
[2023-06-30 11:39] LABS: Estimated Average Glucose 209 mg/dL; Hemoglobin A1c % 8.9 % (<6.0)
[2023-06-30 12:08] LABS: Alanine Aminotransferase 9 U/L (0-31); Albumin Level 4.2 g/dL (3.5-5.0); Alkaline Phosphatase 64 U/L (39-117); Anion Gap 15 (12-20); Aspartate Amino Transferase 12 U/L (5-31); Blood Urea Nitrogen 18 mg/dL (9-16); Calcium 9.4 mg/dL (8.4-10.2); Carbon Dioxide 26 mmol/L (22-29); Chloride 105 mmol/L (96-108); Cholesterol 113 mg/dL (<200); Estimated Glomerular Filt Rate 57; Glucose Fasting 252 mg/dL (60-99); Glucose Random 251 mg/dL (60-115); HDL Cholesterol 36 mg/dL (>40); LDL Cholesterol Calculated 39 mg/dL (<100); Phosphorus 4.7 mg/dL (2.7-4.5); Potassium 4.5 mmol/L (3.3-5.1); Sodium 141 mmol/L (135-145); Total Protein 7.1 g/dL (6.5-8.0); Triglycerides 192 mg/dL (<150)
[2023-06-30 12:13] LABS: Free T4 (Free Thyroxine) 1.17 ng/dL (0.71-1.85); Thyroid Stimulating Hormone 0.84 uIU/mL (0.32-4.0); Vitamin D 25-OH Total 37.1 ng/mL (>30)
[2023-06-30 12:14] LABS: Free T4 (Free Thyroxine) 1.17 ng/dL (0.71-1.85); Thyroid Stimulating Hormone 0.84 uIU/mL (0.32-4.0); Vitamin D 25-OH Total 36.7 ng/mL (>30)
[2023-06-30 12:19] LABS: Folate 8.7 ng/mL (> or = 4.0); Vitamin B12 396 pg/mL (200-900)
[2023-07-04 22:55] LABS: Alkaline Phosphatase Bone 7.9 mcg/L (see note)
== END 2023-06-30 06:26 | disposition home or self-care (01) ==
LOC: HO.HMGCLDS 06:25
PROVIDERS: Absent Provider Internal Medicine; PCP Internal Medicine; Visit Provider Internal Medicine
DX: E11.65 Type 2 diabetes mellitus with hyperglycemia (principal); E21.0 Primary hyperparathyroidism; E04.2 Nontoxic multinodular goiter; E55.9 Vitamin D deficiency, unspecified; E03.9 Hypothyroidism, unspecified; R17 Unspecified jaundice; E80.4 Gilbert syndrome; I25.10 Atherosclerotic heart disease of native coronary artery without angina pectoris; I48.0 Paroxysmal atrial fibrillation; I10 Essential (primary) hypertension; E78.5 Hyperlipidemia, unspecified; E53.8 Deficiency of other specified B group vitamins; M81.0 Age-related osteoporosis without current pathological fracture
CPT/HCPCS: 36415; 80053; 80061; 82306; 82607; 82746; 83036; 84075; 84100; 84439; 84443

== ENCOUNTER 2023-07-02 11:20 | Outpatient (AMB) | payer MEDICARE, SELFPAY ==
--- NOTE | 2023-07-02 12:11 | A.OFFPC_ITS ---
Vital Signs 07/02/23 12:12 Height 5 ft 5 in Weight 176 lb 8 oz BMI 29.4 BP 140/80 H Blood Pressure Location Rt brachial Position Sitting Pulse 76 Pulse Source Pulse Oximeter Pulse Oximetry (%) 96 Oxygen Delivery Method Room Air Comment Has not taken her blood pressure medicine this morning Intake Visit Reasons: 3 month Follow up Intake Note: Pt is here to follow up for her lab results Allergies cat dander [CAT DANDER] Allergy (Mild, Verified 08/14/23 07:54) ITCHY EYES cat's claw Allergy (Unknown, Verified 08/14/23 07:54) Unknown Medication List - Last Reconciled 07/02/23 by Allegra Lo MD apixaban (Eliquis) 5 mg PO Q12H atorvastatin 40 mg PO DAILY blood sugar diagnostic (FreeStyle Lite Strips) twice a day blood-glucose meter (FreeStyle Lite Meter kit) As directed cholecalciferol (vitamin D3) (Vitamin D3) 50 mcg PO DAILY Januvia (sitagliptin phosphate) 100 mg PO DAILY NS Jardiance (empagliflozin) 25 mg PO QAM NS lancets As directed twice a day levothyroxine 112 mcg PO DAILY lisinopril 10 mg PO DAILY 90 days mecobalamin (vitamin B12) 1,000 mcg sublingual DAILY 90 days metformin 1,000 mg PO BID metoprolol succinate ER 100 mg PO DAILY nifedipine ER 30 mg PO DAILY Tobacco use date assessed: 07/02/23 Fall risk assessment: No Falls in past year Last assessed Fall Risk: 07/02/23 Dental Screening Dental Screen Date: 07/02/23 Did you have a dental visit in the last 12 months?: Yes Did you have a dental problem in the last 6 months where you did not have access to dental care?: No Was dental information given to patient?: Patient has dentist HPI 3 month Follow up HPI Details -82-year-old lady with known CAD, paroxy smal atrial fibrillation, osteoporosis, hyperlipidemia, diabetes mellitus, hypothyroidism and hypertension, here today for her follow-up. She has been taking her medications as directed, but has not been following her diet religiously these past few months, and has not been getting any regular exercise. Feels well with no complaints at present time. She is currently being seen by Dr. Roland for her osteoporosis. [facility] Medical History Gilbert disease History of primary hyperparathyroidism Diabetes mellitus with hyperglycemia, without long-term current use of insulin Hypothyroidism History of multinodular goiter Hypertrophic toenail Elevated bilirubin Vitamin D deficiency Ex-smoker CAD (coronary artery disease) Atherosclerotic heart disease Paroxysmal atrial fibrillation Hypertension Dyslipidemia B12 deficiency Osteoporosis Diabetes type 2, controlled Surgical History Hx of cataract History of parathyroidectomy H/O total thyroidectomy Stented coronary artery Hx of cholecystectomy Hx of hysterectomy Family History Father Sudden cardiac CVD (cardiovascular disease) Mother No problems noted. Sister Substance use disorder Social History Household Members Other:: 2 daughters Housing: House Alcohol intake: current Alcohol intake frequency: a few times a month Alcohol type: wine Patient Tobacco Use Status: Former Tobacco user Years Smoked: 30 years e-Cigarette/Vaping Use: Never Used Current occupational status: retired Cognitive needs: No Hearing needs: No Vision needs: Yes Questionnaire Thrive Questionnaire Date Thrive assessed: 12/28/22 ELVIS-7 AMB Questionnaire ELVIS-7 Date ELVIS - 7 assessed: 12/28/22 Source: Developed by Drs. Alphonse Mckenna, Karen Patton, Riaz Faye and colleagues, with an educational molly from [employer]. Review of Systems Const Denies fatigue, Denies fever(s), Denies frequent falls and Denies weakness Eyes Details: Sees Dr. Bry William at [facility] 12/04/2022 with no diabetic retinopathy seen Denies change in vision ENT Denies dizziness Card Denies chest pain, Denies leg edema, Denies lightheadedness, Denies palpitations, Denies dyspnea, Denies dyspnea on exertion and Denies orthopnea Resp Denies cough, Denies dyspnea and Denies dyspnea on exertion GI Denies hematochezia and Denies change in stool character Reports no additional complaints Musc Denies abnormal gait, Denies muscle weakness, Denies numbness, Denies radiating pain into limb and Denies tingling Neuro Denies abnormal gait, Denies dizziness, Denies frequent falls, Denies numbness, Denies tingling and Denies weakness Endo Denies fatigue and Denies palpitations Alessandro/Lymph Reports no additional complaints Aller/Immun Reports no additional complaints Physical exam (Primary Care) Vital Signs: Last Vital Signs Pulse 76 07/02/23 12:12 BP 140/80 H 07/02/23 12:12 Pulse Ox 96 07/02/23 12:12 Oxygen Delivery Method Room Air 07/02/23 12:12 BMI result Body Mass Index 29.4 Tobacco/Smoking Status: Tobacco use Status Tobacco use date assessed 07/02/23 07/02/23 12:17 Patient Tobacco Use Status Former Tobacco user 07/02/23 12:11 e-Cigarette/Vaping Use Never Used 07/02/23 12:11 Thrive Assessment: Date of Thrive Assessment Date Thrive assessed 12/28/22 07/02/23 12:11 Const General: comfortable, no acute distress and alert Nutritional Appearance: obese Orientation/consciousness: patient oriented x3 Limitations: ambulation with cane HENMT Head: Yes normocephalic Ears: external ears normal General nose exam: Normal external nose present and No nasal discharge present Face and sinus: Yes face symmetric Mouth: Normal oral and palatal mucosa present and moist mucous membranes Eyes General: appearance normal, both eyes and all related structures Neck Neck: Yes full ROM, Yes no lymphadenopathy and Yes supple Chest Chest palpation & inspection: normal inspection of the chest and normal pa lpation of entire chest wall Resp Auscultation: clear to auscultation bilaterally Cardio Other: S1-S2 present regular rate and rhythm GI Palpation (GI): Soft to palpation, nontender, no guarding and no masses Auscultation: normal bowel sounds Back/Spine/Pelvis Back: No back tenderness Skin Nails: yellow and thickened (Bilaterally) Neuro General: patient oriented x3, tone normal, moves all extremities, no focal motor deficits and CN's II-XI intact bilaterally Extrem General: Yes full ROM, Yes no joint enlargement, Yes no pedal edema and Yes no calf tenderness Psych Appearance: grossly normal and well kempt Mental Status: mental status grossly normal Speech and movement: Normal speech and movement present Affect: normal affect Attitude: cooperative Results Reviewed Results Reviewed: Laboratory Tests 06/30/23 06:42 Estimat Average Glucose 209 Hemoglobin A1c % 8.9 H Name: Angelika Mora Age/Sex: 82/F : 1940 Unit#: [id number] Attend Dr: Allegra Lo MD Re06/30/23 Status: DEP REF Location: [facility] Disch: SPEC : [id number] EDE: 06/30/23 STATUS: COMP REQ : [id number] RECD: 06/30/[address]: Allegra Lo MD COMP: 06/30/23 ENTERED: 06/30/[address]: Brandi Piña DO ORDERED: CMP, CMP Fast, Phos, Lipid Panel, Vitamin D 25-OH, Free T4, TSH Test Result Flag Reference Site Sodium 141 135-145 mmol/L Potassium 4.5 3.3-5.1 mmol/L CL 105 96-108 mmol/L CO2 26 22-29 mmol/L Gap 15 12-20 BUN 18 H 9-16 mg/dL Creat 0.94 0.5-1.4 mg/dL EGFR 57 NOTE: For -[place] individuals, multiply the result by 1.210. Chronic Kidney Disease: Estimated GFR < 60 mL/min/1.73m2 Severe Kidney Disease: Estimated GFR < 15 mL/min/1.73m2 Glucose, Random 251 H 60-115 mg/dL FBS 252 H 60-99 mg/dL A fasting glucose of 126 mg/dl or greater on more than one occasion is considered diagnostic of diabetes. CA 9.4 8.4-10.2 mg/dL Phosphorus 4.7 H 2.7-4.5 mg/dL Total Bili 2.0 H 0.0-1.0 mg/dL AST (GOT) 12 5-31 U/L ALT (GPT) 9 0-31 U/L Protein, Total 7.1 6.5-8.0 g/dL Alb 4.2 3.5-5.0 g/dL Triglyceride 192 H <150 mg/dL Desirable Triglyceride: less than 150 mg/dL Borderline High Triglyceride 150-199 mg/dL High Triglyceride: 200-499 mg/dL Very High Triglyceride: greater than or equal to 5OO mg/dL Cholesterol 113 <200 mg/dL Desirable Cholesterol: less than 200 mg/dL Borderline High Cholesterol: 200-239 mg/dL High Cholesterol: greater than 239 mg/dL LDL Calculated 39 <100 mg/dL Desirable LDL: less than 100 mg/dL Near Optimal/Above Optimal LDL: 110-129 mg/dL Borderline High LDL: 130-159 mg/dL High LDL: 160-189 mg/dL Very High LDL: greater than or equal to 190 mg/dL HDL 36 L >40 mg/dL Desirable HDL: greater than 40 mg/dL Note: This HDL assay may give artificially low results in patients with liver disease. Alk Phos 64 39-117 U/L Vit D 25-OH Tot 36.7 >30 ng/mL Health Based Reference Values* < 20 ng/mL Deficient 20-30 ng/mL Insufficient > 30 ng/mL Sufficient *Nicholas HAN. N Engl J Med. 2007;[id number]:266-280 Care must be taken in interpreting Vitamin D results from different laboratories and methodologies. Published data demonstrated that results from patients undergoing hemodialysis may show a negative bias when tested with various automated 25-OH vitamin D assays when compared to LC-MS/MS. When testing samples from patients whose predominant form of Vitamin D is Vitamin D2, such as patients receiving Vitamin D2 supplementation, results that are subtherapeutic should be confirmed with another method such as LC-MS/MS. Free T4 1.17 0.71-1.85 ng/dL TSH 3rd Gen. 0.84 0.32-4.0 uIU/mL TSH 3rd Generation ([facility]) Assessment and Plan Assessment & Plan (1) Diabetes mellitus with hyperglycemia, without long-term current use of insulin: Code(s): E11.65 - Type 2 diabetes mellitus with hyperglycemia Plan: DM not well controlled with hemoglobin A1c at 8.9%. Has not been very compliant with her diet. Stressed importance of taking her medications regularly, will continue on current dose of metformin 1000 mg 1 tablet twice a day and Jardiance 25 mg daily in a.m. an hour before breakfast and only with glass of water. Stressed importance of compliant with diet and getting regular exercise at least 30 minutes 3 to 4 times a week. Up-to-date with her diabetes retinopathy screening done in November 2022 with no retinopathy seen. Will repeat labs again in 3 month (2) Hypothyroidism: Code(s): E03.9 - Hypothyroidism, unspecified Plan: Thyroid levels are within normal limits will continue on current dose of levothyroxine 112 mcg daily (3) Hypertension: Code(s): I10 - Essential (primary) hypertension Qualifiers: Hypertension type: essential hypertension Qualified Code(s): I10 - Ess ential (primary) hypertension Plan: Blood pressure goal is less than 130/80. Currently on lisinopril 10 mg daily, nifedipine 30 mg daily and metoprolol succinate ER 100 mg once a day. Reinforced importance of following a low sodium diet, getting regular exercise, and lowering stress levels. Follow-up again in 3 month (4) Dyslipidemia: Code(s): E78.5 - Hyperlipidemia, unspecified Plan: Reviewed recent fasting lipid profile with patient with improving triglyceride level, and LDL cholesterol within normal limits. . Continue with atorvastatin 40 mg daily , in addition to adherence to low-cholesterol diet and regular exercise, at least 30 minutes 3 to 4 times a week. Advised patient to make healthy food choices, eat more fruits, vegetables, whole grains, wild caught fish and low-fat dairy. Limit amount of meat and fried or fatty food products, as well as processed foods and fast foods. Follow-up scheduled with repeat fasting lipid panel in 3 months. Orders: Orders Microalbumin, Random (w Creat) 09/17/23 Z86.39 - Personal history of other endocrine, nutritional and metabolic disease, E11.65 - Type 2 diabetes mellitus with hyperglycemia, E03.9 - Hypothyroidism, unspecified, I25.10 - Atherosclerotic heart disease of [place] coronary artery without angina pectoris, I10 - Essential (primary) hypertension, E78.5 - Hyperlipidemia, unspecified, M81.0 - Age-related osteoporosis without current pathological fracture, Z78.0 - Asymptomatic menopausal state Comprehensive [place]. Panel Fast 09/17/23 Z86.39 - Personal history of other endocrine, nutritional and metabolic disease, E11.65 - Type 2 diabetes mellitus with hyperglycemia, E03.9 - Hypothyroidism, unspecified, I25.10 - Atherosclerotic heart disease of [place] coronary artery without angina pectoris, I10 - Essential (primary) hypertension, E78.5 - Hyperlipidemia, unspecified, M81.0 - Age-related osteoporosis without current pathological fracture, Z78.0 - Asymptomatic menopausal state Thyroid Stimulating Hormone 09/17/23 Z86.39 - Personal history of other endocrine, nutritional and metabolic disease, E11.65 - Type 2 diabetes mellitus with hyperglycemia, E03.9 - Hypothyroidism, unspecified, I25.10 - Atherosclerotic heart disease of [place] coronary artery without angina pectoris, I10 - Essential (primary) hypertension, E78.5 - Hyperlipidemia, unspecified, M81.0 - Age-related osteoporosis without current pathological fracture, Z78.0 - Asymptomatic menopausal state Lipid Panel 09/17/23 Z86.39 - Personal history of other endocrine, nutritional and metabolic disease, E11.65 - Type 2 diabetes mellitus with hyperglycemia, E03.9 - Hypothyroidism, unspecified, I25.10 - Atherosclerotic heart disease of [place] coronary artery without angina pectoris, I10 - Essential (primary) hypertension, E78.5 - Hyperlipidemia, unspecified, M81.0 - Age-related osteoporosis without current pathological fracture, Z78.0 - Asymptomatic menopausal state Hemoglobin A1c 09/17/23 Z86.39 - Personal history of other endocrine, nutritional and metabolic disease, E11.65 - Type 2 diabetes mellitus with hyperglycemia, E03.9 - Hypothyroidism, unspecified, I25.10 - Atherosclerotic heart disease of [place] coronary artery without angina pectoris, I10 - Essential (primary) hypertension, E78.5 - Hyperlipidemia, unspecified, M81.0 - Age-related osteoporosis without current pathological fracture, Z78.0 - Asymptomatic menopausal state Free T4 (Free Thyroxine) 09/17/23 E03.9 - Hypothyroidism, unspecified, Z86.39 - Personal history of other endocrine, nutritional and metabolic disease, E11.65 - Type 2 diabetes mellitus with hyperglycemia, I25.10 - Atherosclerotic heart disease of [place] coronary artery without angina pectoris, I10 - Essential (primary) hypertension, E78.5 - Hyperlipidemia, unspecified, M81.0 - Age-related osteoporosis without current pathological fracture, Z78.0 - Asymptomatic menopausal state Vitamin D 25-OH Total 09/17/23 Z86.39 - Personal history of other endocrine, nutritional and metabolic disease, E11.65 - Type 2 diabetes mellitus with hyperglycemia, E03.9 - Hypothyroidism, unspecified, I25.10 - Atherosclerotic heart disease of [place] coronary artery without angina pectoris, I10 - Essential (primary) hypertension, E78.5 - Hyperlipidemia, unspecified, M81.0 - Age-related osteoporosis without current pathological fracture, Z78.0 - Asymptomatic menopausal state Medications: Refilled Jardiance (empagliflozin) 25 mg PO QAM 30 tabs 5RF NS Coding Level of Care Code Est Pt Level 4 (53004) Diagnoses Diabetes mellitus with hyperglycemia, without long-term current use of insulin E11.65 Hypothyroidism E03.9 Essential hypertension I10 Hypertension type: essential hypertension Dyslipidemia E78.5
[2023-07-02 12:12] VITALS: BP 140/80; PULSE 76; O2SAT 96; BMI 29.4
== END 2023-07-02 15:31 | disposition home or self-care (01) ==
PROVIDERS: PCP Internal Medicine; Visit Provider Internal Medicine
DX: E11.65 Type 2 diabetes mellitus with hyperglycemia (principal); E03.9 Hypothyroidism, unspecified; I10 Essential (primary) hypertension; E78.5 Hyperlipidemia, unspecified
CPT/HCPCS: 99214

== ENCOUNTER 2023-07-06 05:38 | Outpatient (REF) | payer MEDICARE, SELFPAY ==
[2023-07-14 08:13] LABS: N-Telopeptide 70 (see note); NTXCreaRU 61 mg/dL (20-275)
== END 2023-07-06 05:39 | disposition home or self-care (01) ==
LOC: HO.HMGCLNP 05:38
PROVIDERS: Visit Provider Internal Medicine
DX: E21.0 Primary hyperparathyroidism (principal)
CPT/HCPCS: 82523

== ENCOUNTER 2023-08-10 08:31 | Outpatient (AMB) | payer MEDICARE, SELFPAY ==
[2023-08-10 08:34] VITALS: BP 126/72; PULSE 69; BMI 29.3
--- NOTE | 2023-08-10 08:34 | MHC.OFFVIS ---
Intake Vital Signs 08/10/23 08:34 Height 5 ft 5 in Weight 175 lb 14.862 oz BMI 29.3 BP 126/72 Blood Pressure Location Lt brachial Position Sitting Pulse 69 Pulse Source Pulse Oximeter Intake Visit Reasons: F/U NTMNG and Hyperparathyroidism-lvm Intake Note: Patient presents today for NTMNG and Hyperparathyroidism follow up, last seen by Dr. Sharma on 11/09/2022. Food And Nutrition Supervisor Required: No Accompanied by: Self / Same As Patient Allergies cat dander [CAT DANDER] Allergy (Mild, Verified 08/10/23 08:43) ITCHY EYES cat's claw Allergy (Unknown, Verified 08/10/23 08:43) Unknown Medication List - Last Reconciled 08/10/23 by Alphonse Roland MD apixaban (Eliquis) 5 mg PO Q12H atorvastatin 40 mg PO DAILY blood sugar diagnostic (FreeStyle Lite Strips) twice a day blood-glucose meter (FreeStyle Lite Meter kit) As directed cholecalciferol (vitamin D3) (Vitamin D3) 50 mcg PO DAILY Januvia (sitagliptin phosphate) 100 mg PO DAILY NS Jardiance (empagliflozin) 25 mg PO QAM NS lancets As directed twice a day levothyroxine 112 mcg PO DAILY lisinopril 10 mg PO DAILY 90 days mecobalamin (vitamin B12) 1,000 mcg sublingual DAILY 90 days metformin 1,000 mg PO BID metoprolol succinate ER 100 mg PO DAILY nifedipine ER 30 mg PO DAILY HPI HPI Comments History of Present Illness Details 82 YO Female with PMHx 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 She was previously followed by Dr. Isbell. . The patient last saw Dr. Sharma 11/09/2022 1) NTMNG: She has a long history of a NTMNG. She had previously undergone attempted FNA biopsy of her R isthmus 2.8 cm thyroid nodule 12/24/2016 and 04/01/2017 both with nondiagnostic cytology. She then underwent 04/25/2020 an FNA biopsy of her R isthmus 2.5 cm thyroid nodule, with cytology atypia of undetermined signifigance, affirma was benign. She also underwent FNA of her RMP 1.2 cm thyroid nodule with benign cytology. She was referred to Dr. Miranda and underwent a total thyroidectomy 08/26/2022. Official surgical pathology was benign. Postoperatively she was started on levothyroxine 125 mcg PO daily, but TSH is suppressed. 2) Osteoporosis: She also has a history of Osteoporosis. Labs completed 09/13/2020 were consistent with hyperparathyroidism with Calcium 10.6, albumin 4.7, PTH 20 and Vitamin D 36. She was treated with IV Reclast x2, 08/2019 and 10/17/2020. She tolerated this well. She opted to undergo a surgical parathyroidectomy and underwent this 08/26/2022 with removal of her right superior parathyroid and her left superior parathyroid, both hyperplastic. Intraoperative PTH declined from 34 to 8. She remains on Calcium citrate 1 tab PO BID currently with Calcium at goal. She denies an paresthesias or cramping. DXA dated 12/11/2020: FINDINGS: AP SPINE L1-L4: Current: BMD 1.092 g/cm2, Z-score 0.4, T-score -0.7, normal, 0.8% increase from previous, 2.5% increase from baseline (<5% change is not significant). Prior: BMD 1.083 g/cm2. Baseline: BMD 1.065 g/cm2. RIGHT FEMUR, NECK: Current: BMD 0.645 g/cm2, Z-score -1.2, T-score -2.8, osteoporosis. Prior: BMD 0.673 g/cm2. Baseline: BMD 0.696 g/cm2. RIGHT FEMUR, TOTAL: Current: BMD 0.770 g/cm2, Z-score -0.4, T-score -1.9, osteopenia, 1.5% decrease from previous, 1.9% decrease from baseline (<5% change is not significant). Prior: BMD 0.782 g/cm2. Baseline: BMD 0.785 g/cm2. US Thyroid 10/01/2020: Right Thyroid Lobe: 5.7 x 2.3 x 2.1 cm, volume 14.4 mL. Previously 5.2 x 2.0 x 2.1 cm, volume 11.1 mL. Parenchyma: The gland echotexture is heterogeneous. Thyroid vascularity is normal. Left Thyroid Lobe: 4.7 x 1.6 x 1.9 cm, volume 7.5 mL. Previously 4.6 x 1.6 x 1.9 cm, volume 7.1 mL. Parenchyma: The gland echotexture is heterogeneous. Thyroid vascularity is normal. Isthmus: 1.3 cm in maximum AP dimension. Previously 0.3 cm. Estimated total number of nodules greater than or equal to 1 cm: 6 to 10. Repair Weaver nodules are described as follows: 1.? Location: Right isthmus. ?? ? Size: 2.7 x 1.3 x 2.1 cm, volume 3.7 mL. ?? ? Previously: 2.5 x 1.3 x 2.1 cm, volume 3.6 mL. ?? ? Nodule characteristics: ?? ? Composition: Solid/almost completely solid (2). ?? ? Echogenicity: Hypoechoic (2). ?? ? Shape: Not taller than wide (0). ?? ? Margins: Smooth (0). ?? ? Echogenic Foci: None (0).? ACR TI-RADS total points: 4 ?? ? ACR TI-RADS category: 4 ? Significant change in size (>/= 20% in 2 dimensions and minimal increase of 2 mm or 50% or greater increase in volume): None ?? ? Change in features: None ?? ? Change in ACR TI-RADS risk category: None 2.? Location: Right mid. ?? ? Size: 1.5 x 0.8 x 1.1 cm, volume 0.7 mL. ?? ? Previously: 0.8 x 0.4 x 0.6 cm, volume 0.1 mL. ?? ? Nodule characteristics: ?? ? Composition: Spongiform (0). ?? ? Echogenicity: Anechoic (0). ?? ? Shape: Not taller than wide (0). ?? ? Margins: Smooth (0). ?? ? Echogenic Foci: None (0).? ACR TI-RADS total points: 0 ?? ? ACR TI-RADS category: 1 ? Significant change in size (>/= 20% in 2 dimensions and minimal increase of 2 mm or 50% or greater increase in volume): None ?? ? Change in features: None ?? ? Change in ACR TI-RADS risk category: None 3.? Location: Right mid lateral. This lesion has been biopsied previously. ?? ? Size: 1.8 x 0.8 x 1.1 cm, volume 1.1 mL. ?? ? Previously: 1.2 x 0.8 x 1.2 cm, volume 0.6 mL. ?? ? Nodule characteristics: ?? ? Composition: Mixed cystic and solid (1). ?? ? Echogenicity: Hypoechoic (2). ?? ? Shape: Not taller than wide (0). ?? ? Margins: Smooth (0). ?? ? Echogenic Foci: None (0).? ACR TI-RADS total points: 3 ?? ? ACR TI-RADS category: 3 ? Significant change in size (>/= 20% in 2 dimensions and minimal increase of 2 mm or 50% or greater increase in volume): None ?? ? Change in features: None ?? ? Change in ACR TI-RADS risk category: None 4.? Location: Right inferior. ?? ? Size: 1.3 x 0.8 x 0.9 cm, volume 0.5 mL. ?? ? Previously: New since the previous study. ?? ? Nodule characteristics: ?? ? Composition: Solid (2). ?? ? Echogenicity: Hypoechoic (2). ?? ? Shape: Not taller than wide (0). ?? ? Margins: Smooth (0). ?? ? Echogenic Foci: None (0).? ACR TI-RADS total points: 4 ?? ? ACR TI-RADS category: 4 ? Significant change in size (>/= 20% in 2 dimensions and minimal increase of 2 mm or 50% or greater increase in volume): None ?? ? Change in features: None ?? ? Change in ACR TI-RADS risk category: None 5.? Location: Left mid. ?? ? Size: 1.4 x 0.9 x 1.1 cm, volume 0.7 mL. ?? ? Previously: 1.4 x 1.0 x 1.3 cm, volume 0.95 mL. ?? ? Nodule characteristics: ?? ? Composition: Mixed cystic and solid (1). ?? ? Echogenicity: Hypoechoic (2). ?? ? Shape: Not taller than wide (0). ?? ? Margins: Smooth (0). ?? ? Echogenic Foci: Macrocalcifications (1).? ACR TI-RADS total points: 4 ?? ? ACR TI-RADS category: 4 ? Significant change in size (>/= 20% in 2 dimensions and minimal increase of 2 mm or 50% or greater increase in volume): None ?? ? Change in features: None ?? ? Change in ACR TI-RADS risk category: None NODES: No lymphadenopathy is seen in the tissue surrounding the thyroid gland. Labs: Laboratory Tests 11/04/22 11/04/22 11/09/22 07:53 07:53 09:03 Sodium 140 Potassium 4.1 Creatinine 0.74 Estimated GFR > 60 Hgb A1c (Clinic) 7.0 H 25-OH Vitamin D To joaquin 35.3 TSH 0.10 L Free T4 1.32 PTH Intact <6 L Calcium (PTH Intac t) 9.5 No fx since last visit. Taking calcium citrate and vitamin D [facility] Medical History (Updated 04/02/23 @ 11:18 by Allegra Lo MD) Gilbert disease History of primary hyperparathyroidism Diabetes mellitus with hyperglycemia, without long-term current use of insulin Hypothyroidism History of multinodular goiter Hypertrophic toenail Elevated bilirubin Vitamin D deficiency Ex-smoker CAD (coronary artery disease) Atherosclerotic heart disease Paroxysmal atrial fibrillation Hypertension Dyslipidemia B12 deficiency Osteoporosis Diabetes type 2, controlled Surgical History Hx of cataract History of parathyroidectomy H/O total thyroidectomy Stented coronary artery Hx of cholecystectomy Hx of hysterectomy Family History Father Sudden cardiac CVD (cardiovascular disease) Mother No problems noted. Sister Substance use disorder Social History Household Members Other:: 2 daughters Housing: House Alcohol intake: current Alcohol intake frequency: a few times a month Alcohol type: wine Patient Tobacco Use Status: Former Tobacco user Years Smoked: 30 years e-Cigarette/Vaping Use: Never Used Current occupational status: retired Cognitive needs: No Hearing needs: No Vision needs: Yes Physical Exam Vital Signs: Last Vital Signs Pulse 69 08/10/23 08:34 BP 126/72 08/10/23 08:34 BMI result Body Mass Index 29.3 Const Other: Healed scar status post thyroidectomy and parathyroidectomy. Assessment & Plan Assessment & Plan (1) Hypothyroidism: Code(s): E03.9 - Hypothyroidism, unspecified Plan: This 82-year-old white female status post thyroidectomy currently being treated with levothyroxine 112 mcg. She appears to be clinically and biochemically euthyroid At this point, in terms of the thyroid, patient returned to the care of her primary care provider and returned back to endocrinology as needed (2) Osteoporosis: Code(s): M81.0 - Age-related osteoporosis without current pathological fracture Plan: History of primary hyperparathyroidism status post parathyroidectomy in the presence of osteoporosis. Currently taking calcium and vitamin-D. Bone turnover markers increased status post parathyroidectomy of bone remodeling is taking place Will repeat DEXA 1 year's time as well as urine NTX and have patient return to see if re- addition of anti resorptive therapy is necessary Orders: Orders XR DEXA axial skeleton 11 Months M81.0 - Age-related osteoporosis without current pathological fracture Collagen Cross-linked,24U 11 Months M81.0 - Age-related osteoporosis without current pathological fracture Coding Level of Care Code Est Pt Level 3 (42081) Diagnoses Hypothyroidism E03.9 Osteoporosis M81.0
== END 2023-08-10 08:51 | disposition home or self-care (01) ==
PROVIDERS: PCP Internal Medicine; Visit Provider Internal Medicine Endocrinology, Diabetes & Metabolism
DX: E03.9 Hypothyroidism, unspecified (principal); M81.0 Age-related osteoporosis without current pathological fracture
CPT/HCPCS: 99213

== ENCOUNTER → 2023-08-10 08:31 | Outpatient (BNVA) | payer MEDICARE, SELFPAY | PROVIDERS: Visit Provider Internal Medicine Endocrinology, Diabetes & Metabolism | DX: E03.9 Hypothyroidism, unspecified (principal); M81.0 Age-related osteoporosis without current pathological fracture; E21.0 Primary hyperparathyroidism; Z79.899 Other long term (current) drug therapy | CPT/HCPCS: 99212 ==

== ENCOUNTER 2023-09-28 07:54 | Outpatient (REF) | payer MEDICARE, SELFPAY ==
[2023-09-28 11:51] LABS: Estimated Average Glucose 166 mg/dL; Hemoglobin A1c % 7.4 % (<6.0)
[2023-09-28 12:13] LABS: Alanine Aminotransferase 12 U/L (0-31); Albumin Level 4.1 g/dL (3.5-5.0); Alkaline Phosphatase 57 U/L (39-117); Anion Gap 14 (12-20); Aspartate Amino Transferase 13 U/L (5-31); Bilirubin Total 1.9 mg/dL (0.0-1.0); Blood Urea Nitrogen 17 mg/dL (9-16); Calcium 9.5 mg/dL (8.4-10.2); Carbon Dioxide 25 mmol/L (22-29); Chloride 108 mmol/L (96-108); Cholesterol 104 mg/dL (<200); Estimated Glomerular Filt Rate > 60; Glucose Fasting 150 mg/dL (60-99); HDL Cholesterol 32 mg/dL (>40); LDL Cholesterol Calculated 36 mg/dL (<100); Potassium 4.3 mmol/L (3.3-5.1); Sodium 143 mmol/L (135-145); Triglycerides 180 mg/dL (<150)
[2023-09-28 12:16] LABS: Creatinine Urine 49.28 mg/dL; Free T4 (Free Thyroxine) 1.38 ng/dL (0.71-1.85); Microalbum/Creatinine Ratio Ur 10.1 ug/mg cr (<30); Thyroid Stimulating Hormone 0.24 uIU/mL (0.32-4.0); Vitamin D 25-OH Total 42.5 ng/mL (>30)
== END 2023-09-28 07:55 | disposition home or self-care (01) ==
LOC: HO.HMGCLDS 07:54
PROVIDERS: PCP Internal Medicine; Visit Provider Internal Medicine
DX: E11.65 Type 2 diabetes mellitus with hyperglycemia (principal); E03.9 Hypothyroidism, unspecified; I25.10 Atherosclerotic heart disease of native coronary artery without angina pectoris; I10 Essential (primary) hypertension; E78.5 Hyperlipidemia, unspecified; M81.0 Age-related osteoporosis without current pathological fracture; Z78.0 Asymptomatic menopausal state; Z86.39 Personal history of other endocrine, nutritional and metabolic disease
CPT/HCPCS: 36415; 80053; 80061; 82043; 82306; 82570; 83036; 84439; 84443

== ENCOUNTER 2023-10-01 10:35 | Outpatient (AMB) | payer MEDICARE, SELFPAY ==
[2023-10-01 11:37] VITALS: BP 130/70; PULSE 86; O2SAT 95; BMI 28.6
--- NOTE | 2023-10-01 11:37 | A.OFFPC_ITS ---
Vital Signs 10/01/23 11:37 Height 5 ft 5 in Weight 172 lb BMI 28.6 BP 130/70 Blood Pressure Location Lt brachial Position Sitting Pulse 86 Pulse Source Pulse Oximeter Pulse Oximetry (%) 95 Oxygen Delivery Method Room Air Intake Visit Reasons: 3 monrh follow up Intake Note: Pt is here today for her 3 mo. f/u DM Allergies cat dander [CAT DANDER] Allergy (Mild, Verified 01/04/24 08:27) ITCHY EYES cat's claw Allergy (Unknown, Verified 01/04/24 08:27) Unknown Medication List - Last Reconciled 10/01/23 by Allegra Lo MD apixaban (Eliquis) 5 mg PO Q12H atorvastatin 40 mg PO DAILY blood sugar diagnostic (FreeStyle Lite Strips) twice a day blood-glucose meter (FreeStyle Lite Meter kit) As directed cholecalciferol (vitamin D3) (Vitamin D3) 50 mcg PO DAILY Januvia (sitagliptin phosphate) 100 mg PO DAILY NS Jardiance (empagliflozin) 25 mg PO QAM NS lancets As directed twice a day levothyroxine 112 mcg PO DAILY lisinopril 10 mg PO DAILY 90 days mecobalamin (vitamin B12) 1,000 mcg sublingual DAILY 90 days metformin 1,000 mg PO BID metoprolol succinate ER 100 mg PO DAILY nifedipine ER 30 mg PO DAILY Tobacco use date assessed: 10/01/23 Last assessed Fall Risk: 10/01/23 Dental Screening Dental Screen Date: 10/01/23 Did you have a dental visit in the last 12 months?: No Was dental information given to patient?: Patient has dentist HPI 3 mon follow up HPI Details Done a is here for follow-up on her diabetes mellitus, hypertension, hyperlipidemia and acquired hypothyroidism.. She has been compliant with her medications, and has been trying to follow recommended diet but remains for the most part, sedentary. Recent fasting labs done showed improvement in her diabetes control with hemoglobin A1c now at 7.4%, fasting lipids, serum calcium, thyroid levels electrolytes and renal function are all within normal limits. [facility] Medical History (Updated 01/05/24 @ 02:47 by Allegra Lo MD) Macular degeneration, left eye Gilbert disease History of primary hyperparathyroidism Diabetes mellitus with hyperglycemia, without long-term current use of insulin Hypothyroidism History of multinodular goiter Hypertrophic toenail Elevated bilirubin Vitamin D deficiency Ex-smoker CAD (coronary artery disease) Atherosclerotic heart disease Paroxysmal atrial fibrillation Hypertension Dyslipidemia B12 deficiency Osteoporosis Diabetes type 2, controlled Surgical History Hx of cataract History of parathyroidectomy H/O total thyroidectomy Stented coronary artery Hx of cholecystectomy Hx of hysterectomy Family History Father Sudden cardiac CVD (cardiovascular disease) Mother No problems noted. Sister Substance use disorder Social History Household Members Other:: 2 daughters Housing: House Alcohol intake: current Alcohol intake frequency: a few times a month Alcohol type: wine Patient Tobacco Use Status: Former Tobacco user Years Smoked: 30 years e-Cigarette/Vaping Use: Never Used Current occupational status: retired Cognitive needs: No Hearing needs: No Vision needs: Yes Questionnaire PHQ-9 Over the last 2 weeks, how often have you been bothered by any of the following problems? 1. Little interest or pleasure in doing things: not at all 2. Feeling down, depressed, or hopeless: not at all 3. Trouble falling or staying asleep, or sleeping too much: not at all 4. Feeling tired or having little energy: not at all 5. Poor appetite or overeating: not at all 6. Feeling bad about yourself - or that you are a failure or have let yourself or your family down: not at all 7. Trouble concentrating on things, such as reading the newspaper or watching television: not at all 8. Moving or speaking so slowly that other people could have noticed. Or the opposite - being so fidgety or restless that you have been moving around a lot more than usual: not at all 9. Thoughts that you would be better off or of hurting yourself in some way: not at all Total score: 0 Source: Developed by Drs. Alphonse Mckenna, Karen Patton, Riaz Faye and colleagues, with an educational molly from [employer]. Thrive Questionnaire Date Thrive assessed: 10/01/23 I am a: Patient What is your living situation today?: I have a steady place to live Within the past 12 months, did the food you bought not last and you didn't have the money to get more?: Never true Within the past 12 months, did you worry whether your food would run out before you got money to buy more?: Never true Do you have trouble paying for medicines?: No Do you have trouble getting transportation to medical appointments?: No Do you have trouble paying your heating and electricity bill?: No Do you have trouble taking care of your child, family member or friend?: No Do you have trouble with day-to-day activities such as bathing, preparing meals, shopping, managing finances, etc.?: No Are you currently unemployed and looking for a job?: No Are you interested in more education?: No THRIVE Score: 0 AUDIT C Alcohol Use Questionnaire (AUDIT-C) 1. How often do you have a drink containing alcohol?: Monthly or less 2. How many drinks containing alcohol do you have on a typical day when you are drinking?: 1 or 2 3. How often do you have six or more drinks on one occasion?: Never Total Score: 1 ELVIS-7 AMB Questionnaire ELVIS-7 Date ELVIS - 7 assessed: 10/01/23 Feeling nervous, anxious, or on edge: 0 = Not at all Not being able to stop or control worryin = Not at all Worrying too much about different things: 0 = Not at all Trouble relaxin = Not at all Being so restless that it is hard to sit still: 0 = Not at all Becoming easily annoyed or irritable: 0 = Not at all Feeling afraid as if something awful might happen: 0 = Not at all Total ELVIS-7 score (0-4 normal; 5-9 mild; 10-14 moderate; 15-21 severe): 0 Source: Developed by Drs. Alphonse Mckenna, Karen Patton, Riaz Faye and colleagues, with an educational molly from [employer]. Review of Systems Const Denies fatigue, Denies fever(s), Denies frequent falls and Denies weakness Eyes Details: Sees Dr. Bry William at [facility] 12/04/2022 with no diabetic retinopathy seen Denies change in vision ENT Denies dizziness Card Denies chest pain, Denies leg edema, Denies lightheadedness, Denies palpitations, Denies dyspnea, Denies dyspnea on exertion and Denies orthopnea Resp Denies cough, Denies dyspnea and Denies dyspnea on exertion GI Denies hematochezia and Denies change in stool character Reports no additional complaints Musc Denies abnormal gait, Denies muscle weakness, Denies numbness, Denies radiating pain into limb and Denies tingling Neuro Denies abnormal gait, Denies dizziness, Denies frequent falls, Denies numbness, Denies tingling and Denies weakness Endo Denies fatigue and Denies palpitations Alessandro/Lymph Reports no additional complaints Aller/Immun Reports no additional complaints Physical exam (Primary Care) Vital Signs: Last Vital Signs Pulse 86 10/01/23 11:37 BP 130/70 10/01/23 11:37 Pulse Ox 95 10/01/23 11:37 Oxygen Delivery Method Room Air 10/01/23 11:37 BMI result Body Mass Index 28.6 Tobacco/Smoking Status: Tobacco use Status Tobacco use date assessed 10/01/23 10/01/23 11:39 Patient Tobacco Use Status Former Tobacco user 10/01/23 11:39 e-Cigarette/Vaping Use Never Used 10/01/23 11:39 PHQ-9: PHQ-9 Score PHQ-9: Total score 0 10/01/23 12:00 Thrive Assessment: Date of Thrive Assessment Date Thrive assessed 10/01/23 10/01/23 12:00 Const General: comfortable, no acute distress and alert Nutritional Appearance: obese Orientation/consciousness: patient oriented x3 Limitations: ambulation with cane HENMT Head: Yes normocephalic Ears: external ears normal General nose exam: Normal external nose present and No nasal discharge present Face and sinus: Yes face symmetric Mouth: Normal oral and palatal mucosa present and moist mucous membranes Eyes General: appearance normal, both eyes and all related structures Neck Neck: Yes full ROM, Yes no lymphadenopathy and Yes supple Resp Auscultation: clear to auscultation bilaterally Cardio Other: S1-S2 present regular rate and rhythm, systolic murmur GI Palpation (GI): Soft to palpation, nontender, no guarding and no masses Auscultation: normal bowel sounds Back/Spine/Pelvis Back: No back tenderness Skin Nails: yellow and thickened (Bilaterally) Neuro General: patient oriented x3, tone normal, moves all extremities, no focal motor deficits and CN's II-XI intact bilaterally Extrem General: Yes full ROM, Yes no joint enlargement, Yes no pedal edema and Yes no calf tenderness Results Reviewed Results Reviewed: RUN: 10/01/23 1200 PAGE 1 [facility] [address] [place] [id number] Conventional Underwriter: Tc Beckett M.D. Specimen Inquiry Name: Angelika Mora Age/Sex: 82/F : 1940 Unit#: [id number] Attend Dr: Allegra Lo MD Re09/28/23 Status: DEP REF Location: [facility] Disch: SPEC : [id number] EDE: 09/28/23 STATUS: COMP REQ : [id number] RECD: 09/28/[address]: Allegra Lo MD COMP: 09/28/23-1215 ENTERED: 09/28/23-[address] [facility] [address]: ORDERED: CMP Fast, Lipid Panel, Vitamin D 25-OH, Free T4, TSH Test Result Flag Reference Sodium 143 135-145 mmol/L Potassium 4.3 3.3-5.1 mmol/L CL 108 96-108 mmol/L CO2 25 22-29 mmol/L Gap 14 12-20 BUN 17 H 9-16 mg/dL Creat 0.76 0.5-1.4 mg/dL EGFR > 60 NOTE: For -[place] individuals, multiply the result by 1.210. Chronic Kidney Disease: Estimated GFR < 60 mL/min/1.73m2 Severe Kidney Disease: Estimated GFR < 15 mL/min/1.73m2 FBS 150 H 60-99 mg/dL A fasting glucose of 126 mg/dl or greater on more than one occasion is considered diagnostic of diabetes. CA 9.5 8.4-10.2 mg/dL Total Bili 1.9 H 0.0-1.0 mg/dL AST (GOT) 13 5-31 U/L ALT (GPT) 12 0-31 U/L Protein, Total 7.0 6.5-8.0 g/dL Alb 4.1 3.5-5.0 g/dL Triglyceride 180 H <150 mg/dL Desirable Triglyceride: less than 150 mg/dL Borderline High Triglyceride 150-199 mg/dL High Triglyceride: 200-499 mg/dL Very High Triglyceride: greater than or equal to 5OO mg/dL Cholesterol 104 <200 mg/dL Desirable Cholesterol: less than 200 mg/dL Borderline High Cholesterol: 200-239 mg/dL High Cholesterol: greater than 239 mg/dL LDL Calculated 36 <100 mg/dL Desirable LDL: less than 100 mg/dL Near Optimal/Above Optimal LDL: 110-129 mg/dL Borderline High LDL: 130-159 mg/dL High LDL: 160-189 mg/dL Very High LDL: greater than or equal to 190 mg/dL HDL 32 L >40 mg/dL Desirable HDL: greater than 40 mg/dL Note: This HDL assay may give artificially low results in patients with liver disease. Alk Phos 57 39-117 U/L Vit D 25-OH Tot 42.5 >30 ng/mL Health Based Reference Values* < 20 ng/mL Deficient 20-30 ng/mL Insufficient > 30 ng/mL Sufficient *Nicholas HAN. N Engl J Med. 2007;[id number] Care must be taken in interpreting Vitamin D results from different laboratories and methodologies. Published data demonstrated that results from patients undergoing hemodialysis may show a negative bias when tested with various automated 25-OH vitamin D assays when compared to LC-MS/MS. When testing samples from patients whose predominant form of Vitamin D is Vitamin D2, such as patients receiving Vitamin D2 supplementation, results that are subtherapeutic should be confirmed with another method such as LC-MS/MS. Free T4 1.38 0.71-1.85 ng/dL TSH 3rd Gen. 0.24 L 0.32-4.0 uIU/mL TSH 3rd Generation ([facility]) Laboratory Tests 09/28/23 07:58 Estimat Average Glucose 166 Hemoglobin A1c % 7.4 H Urine Creatinine 49.28 Urine Microalbumin 5.0 Microalb/Creat Ratio 10.1 Assessment and Plan Assessment & Plan (1) Diabetes mellitus with hyperglycemia, without long-term current use of insulin: Code(s): E11.65 - Type 2 diabetes mellitus with hyperglycemia Plan: Marked improvement in diabetes control noted, will continue on metformin, Januvia and Jardiance at same dose. Up-to-date with her diabetes retinopathy screening, reinforced importance of adhering to recommended diet and staying active. (2) Hypertension: Code(s): I10 - Essential (primary) hypertension Qualifiers: Hypertension type: essential hypertension Qualified Code(s): I10 - Essential (primary) hypertension Plan: Blood pressure stable and controlled on current treatment (3) Dyslipidemia: Code(s): E78.5 - Hyperlipidemia, unspecified Plan: Fasting lipids are within normal limits, continued on atorvastatin 40 mg daily Orders: Orders Hemoglobin A1c 12/19/23 E80.4 - Gilbert syndrome, E11.65 - Type 2 diabetes mellitus with hyperglycemia, Z79.01 - termite control representative (current) use of anticoagulants, I10 - Essential (primary) hypertension, E78.5 - Hyperlipidemia, unspecified Lipid Panel 12/19/23 E80.4 - Gilbert syndrome, E11.65 - Type 2 diabetes mellitus with hyperglycemia, Z79.01 - termite control representative (current) use of anticoagulants, I10 - Essential (primary) hypertension, E78.5 - Hyperlipidemia, unspecified Hemoglobin and Hematocrit 12/19/23 E80.4 - Gilbert syndrome, E11.65 - Type 2 diabetes mellitus with hyperglycemia, Z79.01 - jail (current) use of anticoagulants, I10 - Essential (primary) hypertension, E78.5 - Hyperlipidemia, unspecified Basic Metabolic Panel Fasting 12/19/23 E80.4 - Gilbert syndrome, E11.65 - Type 2 diabetes mellitus with hyperglycemia, Z79.01 - jail (current) use of anticoagulants, I10 - Essential (primary) hypertension, E78.5 - Hyperlipidemia, unspecified Alanine Aminotransferase 12/19/23 E80.4 - Gilbert syndrome, E11.65 - Type 2 diabetes mellitus with hyperglycemia, Z79.01 - jail (current) use of anticoagulants, I10 - Essential (primary) hypertension, E78.5 - Hyperlipidemia, unspecified Aspartate Amino Transferase 12/19/23 E80.4 - Gilbert syndrome, E11.65 - Type 2 diabetes mellitus with hyperglycemia, Z79.01 - termite control representative (current) use of anticoagulants, I10 - Essential (primary) hypertension, E78.5 - Hyperlipidemia, unspecified Coding Level of Care Code Est Pt Level 4 (15585) Complex EM visit Add On G2211 Diagnoses Diabetes mellitus with hyperglycemia, without long-term current use of insulin E11.65 Essential hypertension I10 Hypertension type: essential hypertension Dyslipidemia E78.5
== END 2023-10-01 12:13 | disposition home or self-care (01) ==
PROVIDERS: PCP Internal Medicine; Visit Provider Internal Medicine
DX: E11.65 Type 2 diabetes mellitus with hyperglycemia (principal); I10 Essential (primary) hypertension; E78.5 Hyperlipidemia, unspecified
CPT/HCPCS: 99214; G2211

== ENCOUNTER 2023-12-31 06:42 | Outpatient (REF) | payer MEDICARE, SELFPAY ==
[2023-12-31 10:36] LABS: Hematocrit 43.3 % (37.0-47.0); Hemoglobin 14.2 g/dl (12.0-16.0)
[2023-12-31 10:38] LABS: Estimated Average Glucose 163 mg/dL; Hemoglobin A1c % 7.3 % (<6.0)
[2023-12-31 11:04] LABS: Alanine Aminotransferase 12 U/L (0-31); Anion Gap 18 (12-20); Aspartate Amino Transferase 14 U/L (5-31); Blood Urea Nitrogen 19 mg/dL (9-16); Calcium 9.1 mg/dL (8.4-10.2); Carbon Dioxide 22 mmol/L (22-29); Chloride 107 mmol/L (96-108); Cholesterol 105 mg/dL (<200); Estimated Glomerular Filt Rate > 60; Glucose Fasting 169 mg/dL (60-99); HDL Cholesterol 31 mg/dL (>40); LDL Cholesterol Calculated 38 mg/dL (<100); Sodium 143 mmol/L (135-145); Triglycerides 181 mg/dL (<150)
== END 2023-12-31 06:43 | disposition home or self-care (01) ==
LOC: HO.HMGCLDS 06:42
PROVIDERS: PCP Internal Medicine; Visit Provider Internal Medicine
DX: E80.4 Gilbert syndrome (principal); E11.65 Type 2 diabetes mellitus with hyperglycemia; Z79.01 Long term (current) use of anticoagulants; I10 Essential (primary) hypertension; E78.5 Hyperlipidemia, unspecified
CPT/HCPCS: 36415; 80048; 80061; 83036; 84450; 84460; 85014; 85018

== ENCOUNTER 2024-01-04 08:08 | Outpatient (AMB) | payer MEDICARE, SELFPAY ==
[2024-01-04 08:12] VITALS: BP 106/60; PULSE 71; O2SAT 95; BMI 28.1
--- NOTE | 2024-01-04 08:12 | A.OFFPC_ITS ---
Vital Signs 01/04/24 08:12 Height 5 ft 5 in Weight 169 lb BMI 28.1 BP 106/60 Blood Pressure Location Lt brachial Position Sitting Pulse 71 Pulse Source Pulse Oximeter Pulse Oximetry (%) 95 Oxygen Delivery Method Room Air Intake Visit Reasons: PE Intake Note: Pt is here today for her PE: bone density scan 12/11/20: Never had a colonoscopy Allergies cat dander [CAT DANDER] Allergy (Mild, Verified 01/04/24 08:27) ITCHY EYES cat's claw Allergy (Unknown, Verified 01/04/24 08:27) Unknown Medication List - Last Reconciled 01/04/24 by Allegra Lo MD apixaban (Eliquis) 5 mg PO Q12H atorvastatin 40 mg PO DAILY blood sugar diagnostic (FreeStyle Lite Strips) twice a day blood-glucose meter (FreeStyle Lite Meter kit) As directed cholecalciferol (vitamin D3) (Vitamin D3) 50 mcg PO DAILY Januvia (sitagliptin phosphate) 100 mg PO DAILY NS Jardiance (empagliflozin) 25 mg PO QAM NS lancets As directed twice a day levothyroxine 112 mcg PO DAILY lisinopril 10 mg PO DAILY metformin 1,000 mg PO BID metoprolol succinate ER 100 mg PO DAILY nifedipine ER 30 mg PO DAILY Tobacco use date assessed: 01/04/24 Fall risk assessment: 1 Fall in past year Last assessed Fall Risk: 01/04/24 Dental Screening Dental Screen Date: 01/04/24 Did you have a dental visit in the last 12 months?: No Was dental information given to patient?: Patient declined HPI PE HPI Details 83-year-old lady with hyperlipidemia, di abetes mellitus hypothyroidism, with history of hypoparathyroidism status post parathyroidectomy 08/2022, paroxysmal atrial fibrillation currently on Eliquis, Gilbert's disease and osteoporosis, here today for physical exam. She no longer gets screening mammograms or cervical cancer screening, due for repeat bone density again in 2024 years after parathyroidectomy. Never had colonoscopy or any colon cancer screening, due to patient's refusal to get tests done. She has been feeling well, with no new complaints at present time. [facility] Medical History (Updated 01/05/24 @ 02:47 by Allegra Lo MD) Macular degeneration, left eye Gilbert disease History of primary hyperparathyroidism Diabetes mellitus with hyperglycemia, without long-term current use of insulin Hypothyroidism History of multinodular goiter Hypertrophic toenail Elevated bilirubin Vitamin D deficiency Ex-smoker CAD (coronary artery disease) Atherosclerotic heart disease Paroxysmal atrial fibrillation Hypertension Dyslipidemia B12 deficiency Osteoporosis Diabetes type 2, controlled Surgical History Hx of cataract History of parathyroidectomy H/O total thyroidectomy Stented coronary artery Hx of cholecystectomy Hx of hysterectomy Family History Father Sudden cardiac CVD (cardiovascular disease) Mother No problems noted. Sister Substance use disorder Social History Household Members Other:: 2 daughters Housing: House Alcohol intake: current Alcohol intake frequency: a few times a month Alcohol type: wine Patient Tobacco Use Status: Former Tobacco user Years Smoked: 30 years e-Cigarette/Vaping Use: Never Used Current occupational status: retired Cognitive needs: No Hearing needs: No Vision needs: Yes Questionnaire Thrive Questionnaire Date Thrive assessed: 10/01/23 AUDIT C Alcohol Use Questionnaire (AUDIT-C) 1. How often do you have a drink containing alcohol?: Monthly or less 2. How many drinks containing alcohol do you have on a typical day when you are drinking?: 1 or 2 3. How often do you have six or more drinks on one occasion?: Never Total Score: 1 ELVIS-7 AMB Questionnaire ELVIS-7 Date ELVIS - 7 assessed: 10/01/23 Source: Developed by Drs. Alphonse Mckenna, Karen Patton, Riaz Faye and colleagues, with an educational molly from [employer]. Review of Systems Const Denies fatigue, Denies fever(s), Denies frequent falls and Denies weakness Eyes Details: Sees Dr. Bry William at [facility] 12/04/2022 with no diabetic retinopathy seen Denies change in vision ENT Denies dizziness Card Denies chest pain, Denies leg edema, Denies lightheadedness, Denies palpitations, Denies dyspnea, Denies dyspnea on exertion and Denies orthopnea Resp Denies cough, Denies dyspnea and Denies dyspnea on exertion GI Denies hematochezia and Denies change in stool character Reports no additional complaints Musc Denies abnormal gait, Denies muscle weakness, Denies numbness, Denies radiating pain into limb and Denies tingling Neuro Denies abnormal gait, Denies dizziness, Denies frequent falls, Denies numbness, Denies tingling and Denies weakness Endo Denies fatigue and Denies palpitations Alessandro/Lymph Reports no additional complaints Aller/Immun Reports no additional complaints Physical exam (Primary Care) Vital Signs: Last Vital Signs Pulse 71 01/04/24 08:12 BP 106/60 01/04/24 08:12 Pulse Ox 95 01/04/24 08:12 Oxygen Delivery Method Room Air 01/04/24 08:12 BMI result Body Mass Index 28.1 Tobacco/Smoking Status: Tobacco use Status Tobacco use date assessed 01/04/24 01/04/24 08:21 Patient Tobacco Use Status Former Tobacco user 01/04/24 08:13 e-Cigarette/Vaping Use Never Used 01/04/24 08:13 Thrive Assessment: Date of Thrive Assessment Date Thrive assessed 10/01/23 01/04/24 08:13 Advance Care Planning discussion: Completed/Scanned Date of discussion: 01/04/24 Who was present: Patient Forms completed: Health Care Proxy and MOLST Time spent: 16-45 minutes Actual minutes spent: 16 Const General: comfortable, no acute distress, alert and Physically active Nutritional Appearance: obese Orientation/consciousness: patient oriented x3 Limitations: ambulation with cane HENMT Head: Yes normocephalic Ears: external ears normal General nose exam: Normal external nose present and No nasal discharge present Face and sinus: Yes face symmetric Mouth: Normal oral and palatal mucosa present and moist mucous membranes Teeth and gingiva: dentures (Upper) Eyes General: appearance normal, both eyes and all related structures Neck Neck: Yes full ROM, Yes no lymphadenopathy and Yes supple Resp Auscultation: clear to auscultation bilaterally Cardio Other: S1-S2 present regular rate and rhythm, systolic murmur GI Palpation (GI): Soft to palpation, nontender, no guarding and no masses Auscultation: normal bowel sounds Back/Spine/Pelvis Back: No back tenderness Skin General skin exam: no rashes or lesions noted and no purpura Nails: yellow and thickened (Bilaterally) Neuro General: patient oriented x3 Extrem General: Yes full ROM, Yes no joint enlargement, Yes no pedal edema and Yes no calf tenderness Psych Appearance: grossly normal and well kempt Mental Status: mental status grossly normal Speech and movement: Normal speech and movement present Affect: normal affect Results Reviewed Results Reviewed: Laboratory Tests 09/28/23 12/31/23 07:58 06:50 Hgb 14.2 Hct 43.3 Estimat Average Glucose 166 163 Hemoglobin A1c % 7.4 H 7.3 H Urine Creatinine 49.28 Urine Microalbumin 5.0 Microalb/Creat Ratio 10.1 Name: Angelika Mora Age/Sex: 83/F : 1940 Unit#: [id number] Attend Dr: Allegra Lo MD Re12/31/23 Status: DEP REF Location: [facility] Disch: SPEC : [id number] EDE: 12/31/23 STATUS: COMP REQ : [id number] RECD: 12/31/23-[address]: Allegra Lo MD COMP: 12/31/23 ENTERED: 12/31/23-[address]: ORDERED: Met Prof Fast, AST, ALT, Lipid Panel Test Result Flag Reference Sodium 143 135-145 mmol/L Potassium 4.0 3.3-5.1 mmol/L CL 107 96-108 mmol/L CO2 22 22-29 mmol/L Gap 18 12-20 BUN 19 H 9-16 mg/dL Creat 0.78 0.5-1.4 mg/dL EGFR > 60 NOTE: For -Emirati individuals, multiply the result by 1.210. Chronic Kidney Disease: Estimated GFR < 60 mL/min/1.73m2 Severe Kidney Disease: Estimated GFR < 15 mL/min/1.73m2 FBS 169 H 60-99 mg/dL A fasting glucose of 126 mg/dl or greater on more than one occasion is considered diagnostic of diabetes. CA 9.1 8.4-10.2 mg/dL AST (GOT) 14 5-31 U/L ALT (GPT) 12 0-31 U/L Triglyceride 181 H <150 mg/dL Desirable Triglyceride: less than 150 mg/dL Borderline High Triglyceride 150-199 mg/dL High Triglyceride: 200-499 mg/dL Very High Triglyceride: greater than or equal to 5OO mg/dL Cholesterol 105 <200 mg/dL Desirable Cholesterol: less than 200 mg/dL Borderline High Cholesterol: 200-239 mg/dL High Cholesterol: greater than 239 mg/dL LDL Calculated 38 <100 mg/dL Desirable LDL: less than 100 mg/dL Near Optimal/Above Optimal LDL: 110-129 mg/dL Borderline High LDL: 130-159 mg/dL High LDL: 160-189 mg/dL Very High LDL: greater than or equal to 190 mg/dL HDL 31 L >40 mg/dL Desirable HDL: greater than 40 mg/dL Note: This HDL assay may give artificially low results in patients with liver disease. Assessment and Plan Assessment & Plan (1) Annual visit for general adult medical examination with abnormal findings: Code(s): Z00.01 - Encounter for general adult medical examination with abnormal findings Plan: Reviewed recent fasting lab results with patient. Gets dental visit every 6 months and regular eye exams, currently up-to-date, goes to [facility]. Take adequate calcium in diet and vitamin-D 3 at 2000 IU per cap once a day, in addition to weight-bearing exercises to help maintain good muscle tone and weight control. Due for repeat bone density scan next year.. Up-to-date with her vaccination (2) Osteoporosis: Code(s): M81.0 - Age-related osteoporosis without current pathological fracture Plan: Currently of all anti resorptive treatment after undergoing successful parathyroidectomy 08/2022. Due for repeat bone density next year continue taking vitamin D3 supplements and calcium supplements (3) Dyslipidemia: Code(s): E78.5 - Hyperlipidemia, unspecified Plan: Recent fasting lipids are within normal limits except for elevated trigl ycerides. Continue with atorvastatin 40 mg daily (4) Hypertension: Code(s): I10 - Essential (primary) hypertension Qualifiers: Hypertension type: essential hypertension Qualified Code(s): I10 - Essential (primary) hypertension Plan: Blood pressure stable controlled on present treatment, continued on lisinopril 10 mg daily and nifedipine ER 30 mg once a day (5) Paroxysmal atrial fibrillation: Code(s): I48.0 - Paroxysmal atrial fibrillation Plan: Currently on Eliquis and metoprolol succinate ER, followed by cardiology (6) Anticoagulant long-term use: Comment: Paroxysmal AFib , DVT on apixaban Code(s): Z79.01 - exterminator helper (current) use of anticoagulants (7) Hypothyroidism: Code(s): E03.9 - Hypothyroidism, unspecified Plan: Thyroid levels are within normal limits, continue on current dose of levothyroxine at 112 mcg daily in a.m. (8) Gilbert disease: Code(s): E80.4 - Gilbert syndrome (9) Encounter for counseling regarding advance directives: Code(s): Z71.89 - Other specified counseling Plan: Initiated the conversation about Advanced Directives. Advanced Directives help patients prepare for current and future decisions about their medical treatment and place of care. Discussed with patient that it is a process where a patients current condition and prognosis are reviewed, their wishes for information regarding their illness are elicited, and likely medical dilemmas are presented and options discussed. MOLST and healthcare proxy form completed today . These forms can be amended as needed, reviewed yearly and make changes as needed Orders: Orders Aspartate Amino Transferase 04/18/24 E03.9 - Hypothyroidism, unspecified, E78.5 - Hyperlipidemia, unspecified, E80.4 - Gilbert syndrome, I10 - Essential (primary) hypertension, I48.0 - Paroxysmal atrial fibrillation, M81.0 - Age- related osteoporosis without current pathological fracture, Z00.01 - Encounter for general adult medical examination with abnormal findings, Z71.89 - Other specified counseling, Z79.01 - exterminator helper (current) use of anticoagulants Thyroid Stimulating Hormone 04/18/24 E03.9 - Hypothyroidism, unspecified, E78.5 - Hyperlipidemia, unspecified, E80.4 - Gilbert syndrome, I10 - Essential (primary) hypertension, I48.0 - Paroxysmal atrial fibrillation, M81.0 - Age- related osteoporosis without current pathological fracture, Z00.01 - Encounter for general adult medical examination with abnormal findings, Z71.89 - Other specified counseling, Z79.01 - exterminator helper (current) use of anticoagulants Hemoglobin A1c 04/18/24 E03.9 - Hypothyroidism, unspecified, E78.5 - Hyperlipidemia, unspecified, E80.4 - Gilbert syndrome, I10 - Essential (primary) hypertension, I48.0 - Paroxysmal atrial fibrillation, M81.0 - Age-related osteoporosis without current pathological fracture, Z00.01 - Encounter for general adult medical examination with abnormal findings, Z71.89 - Other specified counseling, Z79.01 - exterminator helper (current) use of anticoagulants Alanine Aminotransferase 04/18/24 E03.9 - Hypothyroidism, unspecified, E78.5 - Hyperlipidemia, unspecified, E80.4 - Gilbert syndrome, I10 - Essential (primary) hypertension, I48.0 - Paroxysmal atrial fibrillation, M81.0 - Age-related osteoporosis without current pathological fracture, Z00.01 - Encounter for general adult medical examination with abnormal findings, Z71.89 - Other specified counseling, Z79.01 - exterminator helper (current) use of anticoagulants Basic Metabolic Panel Fasting 04/18/24 E03.9 - Hypothyroidism, unspecified, E78.5 - Hyperlipidemia, unspecified, E80.4 - Gilbert syndrome, I10 - Essential (primary) hypertension, I48.0 - Paroxysmal atrial fibrillation, M81.0 - Age- related osteoporosis without current pathological fracture, Z00.01 - Encounter for general adult medical examination with abnormal findings, Z71.89 - Other specified counseling, Z79.01 - detention (current) use of anticoagulants Lipid Panel 04/18/24 E03.9 - Hypothyroidism, unspecified, E78.5 - Hyperlipidemia, unspecified, E80.4 - Gilbert syndrome, I10 - Essential (primary) hypertension, I48.0 - Paroxysmal atrial fibrillation, M81.0 - Age-related osteoporosis without current pathological fracture, Z00.01 - Encounter for general adult medical examination with abnormal findings, Z71.89 - Other specified counseling, Z79.01 - exterminator helper (current) use of anticoagulants Free T4 (Free Thyroxine) 04/18/24 E03.9 - Hypothyroidism, unspecified, E78.5 - Hyperlipidemia, unspecified, E80.4 - Gilbert syndrome, I10 - Essential (primary) hypertension, I48.0 - Paroxysmal atrial fibrillation, M81.0 - Age-related osteoporosis without current pathological fracture, Z00.01 - Encounter for general adult medical examination with abnormal findings, Z71.89 - Other specified counseling, Z79.01 - detention (current) use of anticoagulants Coding Level of Care Code Est Pt Prev Care >65y(32570) Diagnoses Annual visit for general adult medical examination with abnormal findings Z00.01 Osteoporosis M81.0 Dyslipidemia E78.5 Essential hypertension I10 Hypertension type: essential hypertension Paroxysmal atrial fibrillation I48.0 Anticoagulant long-term use Z79.01 Hypothyroidism E03.9 Gilbert disease E80.4 Encounter for counseling regarding advance directives Z71.89 Additional Codes Vital Signs *Quality* - Advance Care Planning discussion: Completed/Scanned ([id number]) Vital Signs *Quality* - Time spent: 16-45 minutes ([id number])
== END 2024-01-04 09:01 | disposition home or self-care (01) ==
PROVIDERS: PCP Internal Medicine; Visit Provider Internal Medicine
DX: Z00.00 Encounter for general adult medical examination without abnormal findings (principal); I48.0 Paroxysmal atrial fibrillation; M81.0 Age-related osteoporosis without current pathological fracture; E78.5 Hyperlipidemia, unspecified; I10 Essential (primary) hypertension; Z79.01 Long term (current) use of anticoagulants; E03.9 Hypothyroidism, unspecified; E80.4 Gilbert syndrome; Z71.89 Other specified counseling
CPT/HCPCS: 1123F; 99397; 99497

== ENCOUNTER → 2024-02-17 07:48 | Outpatient (REF) | payer MEDICARE, SELFPAY ==
--- NOTE | 2024-02-17 07:51 | CA_ITS ---
Transthoracic Echocardiogram Patient (Last, First, Middle): Angelika Mora M Gender: Female Date of : 1940 Age: 83 Procedure Date: 02/17/2024 Procedure Type: Transthoracic Echocardiogram Location: OP Height: 162.56 cm Weight: 81.65 kg BSA: 1.87 m2 Heart Rate: bpm BP: 110 / 68 mmHg Microfilmer: TO Referring MD: Erasto Hanley MD Criminalist: Erasto Hanley MD Symptoms: I48.0 - Paroxysmal atrial fibrillation Study Quality: Fair ECG Rhythm: Sinus Conclusions: - 1. Normal LV ejection fraction of 60 65% with grade 1 diastolic dysfunction with impaired relaxation filling pattern an underlying regional wall motion abnormality consistent with coronary artery disease 2. Normal cardiac valvular Doppler 3. No gross pericardial effusion Findings Left Ventricle Normal left ventricular size, thickness, and systolic function. The visually estimated ejection fraction is between 60-65%. Spectral Doppler is indicative of an impaired relaxation filling pattern. E/E prime ratio is <8, consistent with normal filling pressures. Evidence suggests grade I (mild) diastolic dysfunction. Wall Motion Rest Echo Findings The basal inferoseptal and basal inferolateral segments are akinetic. The basal inferior segment is dyskinetic. All other scored wall segments showed normal motion. Right Ventricle Normal right ventricular cavity size and systolic function. Atria The left atrium is likely dilated. There is lipomatous hypertrophy of the interatrial septum. There is no evidence of interatrial shunt. The right atrium is normal in size. Aortic Valve Normal aortic valve structure and function. There is mild calcification of the aortic valve. There is no aortic valve stenosis. There is no aortic valve regurgitation. Mitral Valve There is mild anterior and posterior mitral leaflet thickening. There is mild mitral annular calcification. There is trace mitral valve regurgitation. There is no mitral valve stenosis. Tricuspid Valve Likely normal tricuspid valve structure and function. Tricuspid regurgitation envelope is inadequate for calculation of right ventricular systolic pressure. Normal right atrial pressure. Great Vessels The pulmonary artery was not well visualized. There is mild dilatation of the ascending aorta measuring 3.80 cm. Small plaque is seen in the sino tubular ridge. Venous The inferior vena cava is normal in size and collapses greater than 50% with inspiration. Pericardium/Pleural There is no evidence of pericardial effusion. Prior Study Comparison No significant change compared to prior study dated: 08/27/2021. Measurements 2D Linear Measurements IVSd: 1.55 0.6-0.9/0.6-1.0 cm LVIDd: 4.20 3.9-5.3/4.2-5.9 cm LVIDd Index: 2.25 2.4-3.2/2.2-3.1 cm/m2 LVIDs: 3.02 2.0-3.6 cm LVPWd: 0.80 0.7-1.1 cm LA Diam: 3.90 2.7-3.8/3.0-4.0 cm LAIDs Index: 2.09 1.5-2.3 cm/m2 LV Mass: 214.93 67-162/88-224 g LV Mass Index: 114.94 43-95/49-115 g/m2 LVOT Diam: 2.10 3.0+(-)1.3 cm 2D Systolic Function EF 4C: 60.00 >55% EF 2C: 60.40 >55% EF BiP: 60.30 >55% Mitral Valve MV Pk E: 0.59 MV PK A: 1.06 MV Decel Time: 310.00 E/A: 0.60 E'Lateral: 9.03 E'Medial: 3.26 E/E' Med: 18.00 E/E' Lat: 6.50 PHT: 91.00 MVA PHT: 2.42 Decel Garrard: 1.89 Aortic Valve AoV Pk Yonathan: 1.64 AoV Mn Yonathan: 1.03 AoV VTI: 0.33 AoV Pk Grad: 11.00 Aov Mn Grad: 5.00 GLORIA Cont.VTI: 2.03 LVOT LVOT Pk Yonathan: 0.97 LVOT Mn Yonathan: 0.66 LVOT VTI: 0.19 LVOT Pk Grad: 4.00 LVOT Mn Grad: 2.00 LVOT Diam: 2.10 LVOT Area: 3.46 Diastolic Function MV Pk E: 0.59 MV Pk A: 1.06 E/A: 0.60 E'Medial: 3.26 E/E' Med: 18.00 E' Laterial: 9.03 E/E' Lat: 6.50 Right Ventricle TAPSE (mm): 23.00 TVS' Yonathan: 13.40 Tricuspid Valve RA Press: 3.00 Great Vessels Aorta Sinus of Valsalva: 3.47 2.0-3.5 cm Ao Asc: 3.80 2.1-3.4 cm Updated in Other Vendor System with Status of Final Erasto Hanley MD electronically signed on 02/18/2024 10:37:50 AM with status of Final
== END ==
LOC: HO.CARD 07:48
PROVIDERS: PCP Internal Medicine; Visit Provider Internal Medicine Cardiovascular Disease
DX: I48.0 Paroxysmal atrial fibrillation (principal)
CPT/HCPCS: 93306

== ENCOUNTER → 2024-02-17 07:51 | Outpatient (BNV) | payer MEDICARE, SELFPAY | PROVIDERS: PCP Internal Medicine; Visit Provider Internal Medicine Cardiovascular Disease | DX: I35.8 Other nonrheumatic aortic valve disorders (principal); I34.81 Nonrheumatic mitral (valve) annulus calcification; I25.10 Atherosclerotic heart disease of native coronary artery without angina pectoris; I48.0 Paroxysmal atrial fibrillation | CPT/HCPCS: 93306 ==

== ENCOUNTER 2024-03-09 09:31 | Outpatient (AMB) | payer MEDICARE, SELFPAY ==
--- NOTE | 2024-03-09 09:43 | MHC.OFFVIS ---
Vital Signs 03/09/24 09:44 Height 5 ft 5 in Weight 169 lb 12.095 oz BMI 28.2 BP 116/58 L Blood Pressure Location Lt brachial Position Sitting Pulse 69 Pulse Source Monitor Intake Visit Reasons: 1 yr f/up Allergies cat dander [CAT DANDER] Allergy (Mild, Verified 01/04/24 08:27) ITCHY EYES cat's claw Allergy (Unknown, Verified 01/04/24 08:27) Unknown Medication List - Last Reconciled 03/09/24 by Erasto Hanley MD apixaban (Eliquis) 5 mg PO Q12H atorvastatin 40 mg PO DAILY blood sugar diagnostic (FreeStyle Lite Strips) twice a day blood-glucose meter (FreeStyle Lite Meter kit) As directed cholecalciferol (vitamin D3) (Vitamin D3) 50 mcg PO DAILY Januvia (sitagliptin phosphate) 100 mg PO DAILY NS Jardiance (empagliflozin) 25 mg PO QAM NS lancets As directed twice a day levothyroxine 112 mcg PO DAILY lisinopril 10 mg PO DAILY metformin 1,000 mg PO BID metoprolol succinate ER 100 mg PO DAILY nifedipine ER 30 mg PO DAILY HPI Comments Details: Angelika comes for follow-up. Overall she has been doing well from cardiac perspective. With her usual day-to-day activity she has no new cardiac symptoms. One episode of brief palpitations that lasted for few seconds in the last year. No prolonged irregular heartbeat or palpitations. No lightheadedness, syncope. Does get short of breath when she goes up a flight of stairs although she does not do this activity routinely. She also denies any exertional chest pain. Takes all her medications. No bleeding issues or neurologic events. [facility] Medical History Macular degeneration, left eye Gilbert disease History of primary hyperparathyroidism Diabetes mellitus with hyperglycemia, without long-term current use of insulin Hypothyroidism History of multinodular goiter Hypertrophic toenail Elevated bilirubin Vitamin D deficiency Ex-smoker CAD (coronary artery disease) Atherosclerotic heart disease Paroxysmal atrial fibrillation Hypertension Dyslipidemia B12 deficiency Osteoporosis Diabetes type 2, controlled Surgical History Hx of cataract History of parathyroidectomy H/O total thyroidectomy Stented coronary artery Hx of cholecystectomy Hx of hysterectomy Family History Father Sudden cardiac CVD (cardiovascular disease) Mother No problems noted. Sister Substance use disorder Social History Household Members Other:: 2 daughters Housing: House Alcohol intake: current Alcohol intake frequency: a few times a month Alcohol type: wine Patient Tobacco Use Status: Former Tobacco user Years Smoked: 30 years e-Cigarette/Vaping Use: Never Used Current occupational status: retired Cognitive needs: No Hearing needs: No Vision needs: Yes Review of Systems Const Denies weakness ENT Denies dizziness Card Denies chest pain, Denies chest pain with activity, Denies syncope, Denies rapid heart rate, Denies pedal edema, Denies edema, Denies leg edema, Denies lightheadedness, Denies palpitations, Denies dyspnea, Denies dyspnea on exertion and Denies orthopnea Resp Denies cough, Denies dyspnea and Denies dyspnea on exertion GI Denies hematochezia and Denies change in stool character Musc Denies abnormal gait, Denies muscle cramps, Denies muscle weakness, Denies numbness, Denies radiating pain into limb and Denies tingling Neuro Denies abnormal gait, Denies dizziness, Denies syncope, Denies numbness, Denies tingling and Denies weakness Endo Denies palpitations Physical Exam Vital Signs: Last Vital Signs Pulse 69 03/09/24 09:44 BP 116/58 L 03/09/24 09:44 BMI result Body Mass Index 28.2 Const General: cooperative, comfortable, no acute distress, alert and awake Nutritional Appearance: obese Orientation/consciousness: patient oriented x3 Limitations: ambulation with cane Neck Neck: Yes trachea midline, Yes supple and Yes no JVD Chest Chest palpation & inspection: normal inspection of the chest Resp Effort & Inspection: normal respiratory effort Auscultation: clear to auscultation bilaterally Cardio Jugular venous distension: no JVD Palpation: normal PMI Rate: regular rate Rhythm: regular rhythm Heart sounds: S1 normal heart sound present, S2 normal heart sound present and Murmur heart sound present systolic early, decrescendo and crescendo GI Auscultation: normal bowel sounds Skin General skin exam: no rashes or lesions noted Neuro General: patient oriented x3 and no focal motor deficits Extrem General: Yes no clubbing, cyanosis or edema Psych Appearance: grossly normal Office Procedures EKG Details: EKG shows normal sinus rhythm with right bundle-branch block with inferior Q-waves [id number]-[id number], Complete Assessment & Plan Assessment & Plan (1) CAD (coronary artery disease): Code(s): I25.10 - Atherosclerotic heart disease of [place] coronary artery without angina pectoris Category: Medical Plan: CAD with remote myocardial infarction of the inferior wall with inferior Q-waves on EKG although with no current symptoms with her usual activity level. Continue monitor clinically. No further workup is indicated at this point time unless she develops new symptoms. Advised to call me with any new concerning symptoms. Continue aggressive risk factor modification. Currently on Eliquis therapy and therefore would avoid aspirin therapy. Continue high-intensity statin therapy with target goal LDL less than 70 mg/dL. Blood pressure is currently well optimized on current therapy. Continue the same. Advised to monitor blood pressure intermittently at home. Continue aggressive diabetes management being pursue through office with goal hemoglobin A1c less than 7%. (2) Paroxysmal atrial fibrillation: Code(s): I48.0 - Paroxysmal atrial fibrillation Category: Medical Plan: Paroxysmal atrial fibrillation which has remained suppressed with minimal symptoms at this point time. At this point time would suggest to continue monitor clinically. Continue metoprolol therapy avoidance of stimulants was discussed. No indication for antiarrhythmic drug therapy. Continue full oral anticoagulation, currently on Eliquis 5 mg b.i.d.. CHADSVASc score of 6. Semi annual renal function test should be pursued. Will follow up in the clinic in 1 year's time, sooner p.r.n.. Thank you for allowing me to partake in her care Coding Level of Care Code Est Pt Level 4 (12628) Diagnoses CAD (coronary artery disease) I25.10 Paroxysmal atrial fibrillation I48.0 CPT Codes EKG - CPT: 32804-[id number], Complete ([id number])
[2024-03-09 09:44] VITALS: BP 116/58; PULSE 69; BMI 28.2
== END 2024-03-09 10:01 | disposition home or self-care (01) ==
PROVIDERS: PCP Internal Medicine; Visit Provider Internal Medicine Cardiovascular Disease
DX: I25.10 Atherosclerotic heart disease of native coronary artery without angina pectoris (principal); I48.0 Paroxysmal atrial fibrillation
CPT/HCPCS: 93010; 99214

== ENCOUNTER → 2024-03-09 09:31 | Outpatient (BNVA) | payer MEDICARE, SELFPAY | PROVIDERS: PCP Internal Medicine; Visit Provider Internal Medicine Cardiovascular Disease | DX: I48.0 Paroxysmal atrial fibrillation (principal); I25.10 Atherosclerotic heart disease of native coronary artery without angina pectoris; Z87.891 Personal history of nicotine dependence | CPT/HCPCS: 93005; 99212 ==

== ENCOUNTER 2024-05-09 06:48 | Outpatient (REF) | payer MEDICARE, SELFPAY ==
[2024-05-09 10:51] LABS: Alanine Aminotransferase 9 U/L (0-31); Anion Gap 14 (12-20); Aspartate Amino Transferase 21 U/L (5-31); Blood Urea Nitrogen 20 mg/dL (9-16); Calcium 9.7 mg/dL (8.4-10.2); Carbon Dioxide 24 mmol/L (22-29); Chloride 108 mmol/L (96-108); Cholesterol 124 mg/dL (<200); Estimated Glomerular Filt Rate > 60; Glucose Fasting 163 mg/dL (60-99); HDL Cholesterol 35 mg/dL (>40); LDL Cholesterol Calculated 51 mg/dL (<100); Potassium 4.4 mmol/L (3.3-5.1); Sodium 142 mmol/L (135-145); Triglycerides 192 mg/dL (<150)
[2024-05-09 11:04] LABS: Estimated Average Glucose 169 mg/dL; Hemoglobin A1c % 7.5 % (<6.0); Total Hemoglobin (HGBA1C) 5295.1558 umol/L
[2024-05-09 11:09] LABS: Free T4 (Free Thyroxine) 1.31 ng/dL (0.71-1.85); Thyroid Stimulating Hormone 0.42 uIU/mL (0.32-4.0)
== END 2024-05-09 06:49 | disposition home or self-care (01) ==
LOC: HO.HMGCLDS 06:48
PROVIDERS: PCP Internal Medicine; Visit Provider Internal Medicine
DX: Z00.01 Encounter for general adult medical examination with abnormal findings (principal); E03.9 Hypothyroidism, unspecified; Z79.01 Long term (current) use of anticoagulants; E80.4 Gilbert syndrome; I48.0 Paroxysmal atrial fibrillation; I10 Essential (primary) hypertension; E78.5 Hyperlipidemia, unspecified; M81.0 Age-related osteoporosis without current pathological fracture; Z71.89 Other specified counseling; Z13.1 Encounter for screening for diabetes mellitus
CPT/HCPCS: 36415; 80048; 80061; 83036; 84439; 84443; 84450; 84460

== ENCOUNTER 2024-05-22 07:57 | Outpatient (AMB) | payer MEDICARE, SELFPAY ==
[2024-05-22 08:05] VITALS: BP 124/82; PULSE 71; O2SAT 95; BMI 28.3
--- NOTE | 2024-05-22 08:05 | MHC.PC.OV ---
Vital Signs 05/22/24 08:05 Height 5 ft 5 in Weight 170 lb BMI 28.3 BP 124/82 Blood Pressure Location Lt brachial Position Sitting Pulse 71 Pulse Source Pulse Oximeter Pulse Oximetry (%) 95 Oxygen Delivery Method Room Air Intake Visit Reasons: follow up Intake Note: Pt is here today f/u lab results Allergies cat dander [CAT DANDER] Allergy (Mild, Verified 05/22/24 08:13) ITCHY EYES cat's claw Allergy (Unknown, Verified 05/22/24 08:13) Unknown Medication List - Last Reconciled 05/22/24 by Allegra Lo MD apixaban (Eliquis) 5 mg PO Q12H atorvastatin 40 mg PO DAILY blood sugar diagnostic (FreeStyle Lite Strips) twice a day blood-glucose meter (FreeStyle Lite Meter kit) As directed cholecalciferol (vitamin D3) (Vitamin D3) 50 mcg PO DAILY Januvia (sitagliptin phosphate) 100 mg PO DAILY NS Jardiance (empagliflozin) 25 mg PO QAM NS lancets As directed twice a day levothyroxine 112 mcg PO DAILY lisinopril 10 mg PO DAILY metformin 1,000 mg PO BID metoprolol succinate ER 100 mg PO DAILY nifedipine ER 30 mg PO DAILY Tobacco use date assessed: 05/22/24 Fall risk assessment: 1 Fall in past year Last assessed Fall Risk: 05/22/24 Dental Screening Dental Screen Date: 05/22/24 Did you have a dental visit in the last 12 months?: No Did you have a dental problem in the last 6 months where you did not have access to dental care?: No Was dental information given to patient?: Patient has dentist HPI follow up HPI Details 83 ear-old lady with hyperlipidemia, diabetes mellitus hypothyroidism, with history of hyperparathyroidism status post parathyroidectomy 08/2022, paroxysmal atrial fibrillation currently on Eliquis, Gilbert's disease and osteoporosis, here today for follow-up on her diabetes mellitus , thyroid and lipids. She has been compliant with taking her Jardiance but always keeps forgetting to take her 2nd of metformin. She tries to follow recommended diet, but admits to occasionally cheating, not get any regular exercise . Last hemoglobin A1c 7.5% unchanged from previous test, fasting lipids are within normal limits except for mildly elevated triglycerides. 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 Gilbert disease History of primary hyperparathyroidism Diabetes mellitus with hyperglycemia, without long-term current use of insulin Hypothyroidism History of multinodular goiter Hypertrophic toenail Elevated bilirubin Vitamin D deficiency Ex-smoker CAD (coronary artery disease) Atherosclerotic heart disease Paroxysmal atrial fibrillation Hypertension Dyslipidemia B12 deficiency Osteoporosis Surgical History Hx of cataract History of parathyroidectomy H/O total thyroidectomy Stented coronary artery Hx of cholecystectomy Hx of hysterectomy Family History Father Sudden cardiac CVD (cardiovascular disease) Mother No problems noted. Sister Substance use disorder Social History Household Members Other:: 2 daughters Housing: House Alcohol intake: current Alcohol intake frequency: a few times a month Alcohol type: wine Patient Tobacco Use Status: Former Tobacco user Years Smoked: 30 years e-Cigarette/Vaping Use: Never Used Current occupational status: retired Cognitive needs: No Hearing needs: No Vision needs: Yes Questionnaire Thrive Questionnaire Date Thrive assessed: 10/01/23 ELVIS-7 AMB Questionnaire ELVIS-7 Date ELVIS - 7 assessed: 10/01/23 Source: Developed by Drs. Alphonse Mckenna, Karen Patton, Riaz Faye and colleagues, with an educational molly from [employer]. Review of Systems Const Denies weakness Eyes Details: Goes to [facility] for follow-up of her left dry AMD, and for diabetes retinopathy screening, has an appointment already scheduled this month ENT Denies dizziness, Reports nasal congestion, Denies post nasal drip, Denies sinus pain and Denies sore throat Card Denies chest pain, Denies chest pain with activity, Denies syncope, Denies rapid heart rate, Denies edema, Denies lightheadedness, Denies palpitations, Denies dyspnea and Denies dyspnea on exertion Resp Denies cough, Denies dyspnea and Denies dyspnea on exertion GI Denies hematochezia and Denies change in stool character Reports no additional complaints Musc Denies abnormal gait, Denies muscle cramps, Denies muscle weakness, Denies numbness, Denies radiating pain into limb and Denies tingling Skin/Breast Denies breast swelling, Denies breast pain and Denies breast mass Neuro Denies abnormal gait, Denies dizziness, Denies syncope, Denies numbness, Denies tingling and Denies weakness Endo Denies palpitations Alessandro/Lymph Denies easy bleeding and Denies easy bruising Aller/Immun Reports seasonal rhinorrhea Physical exam (Primary Care) Vital Signs: Last Vital Signs Pulse 71 05/22/24 08:05 BP 124/82 05/22/24 08:05 Pulse Ox 95 05/22/24 08:05 Oxygen Delivery Method Room Air 05/22/24 08:05 BMI result Body Mass Index 28.3 Tobacco/Smoking Status: Tobacco use Status Tobacco use date assessed 05/22/24 05/22/24 08:11 Patient Tobacco Use Status Former Tobacco user 05/22/24 08:11 e-Cigarette/Vaping Use Never Used 05/22/24 08:11 Thrive Assessment: Date of Thrive Assessment Date Thrive assessed 10/01/23 05/22/24 08:11 Const General: comfortable, no acute distress, alert and Physically active Nutritional Appearance: obese Orientation/consciousness: patient oriented x3 Limitations: ambulation with cane HENMT Head: Yes normocephalic Ears: external ears normal General nose exam: Normal external nose present and No nasal discharge present Face and sinus: Yes face symmetric Mouth: Normal oral and palatal mucosa present and moist mucous membranes Teeth and gingiva: dentures (Upper) Eyes General: appearance normal, both eyes and all related structures Neck Neck: Yes full ROM, Yes no lymphadenopathy and Yes supple Resp Auscultation: clear to auscultation bilaterally Cardio Other: S1-S2 present regular rate and rhythm, systolic murmur GI Palpation (GI): Soft to palpation, nontender, no guarding and no masses Auscultation: normal bowel sounds Back/Spine/Pelvis Back: No back tenderness Skin General skin exam: no rashes or lesions noted and no purpura Nails: yellow and thickened (Bilaterally) Neuro General: patient oriented x3 Extrem General: Yes full ROM, Yes no joint enlargement, Yes no pedal edema and Yes no calf tenderness Psych Appearance: grossly normal and well kempt Mental Status: mental status grossly normal Speech and movement: Normal speech and movement present Affect: normal affect Results Reviewed Results Reviewed: Laboratory Tests 05/09/24 07:05 Estimat Average Glucose 169 Hemoglobin A1c % 7.5 H Name: Angelika Mora Age/Sex: 83/F : 1940 Unit#: [id number] Attend Dr: Allegra Lo MD Re05/09/24 Status: DEP REF Location: [facility] Disch: SPEC : [id number] EDE: 05/09/24 STATUS: COMP REQ : [id number] RECD: 05/09/[address]: Allegra Lo MD COMP: 05/09/24 ENTERED: 05/09/[address]: ORDERED: Met Prof Fast, AST, ALT, Lipid Panel, Free T4, TSH Test Result Flag Reference Sodium 142 135-145 mmol/L Potassium 4.4 3.3-5.1 mmol/L CL 108 96-108 mmol/L CO2 24 22-29 mmol/L Gap 14 12-20 BUN 20 H 9-16 mg/dL Creat 0.76 0.5-1.4 mg/dL EGFR > 60 NOTE: For -[place]cu[place] individuals, multiply the result by 1.210. Chronic Kidney Disease: Estimated GFR < 60 mL/min/1.73m2 Severe Kidney Disease: Estimated GFR < 15 mL/min/1.73m2 FBS 163 H 60-99 mg/dL A fasting glucose of 126 mg/dl or greater on more than one occasion is considered diagnostic of diabetes. CA 9.7 # 8.4-10.2 mg/dL AST (GOT) 21 5-31 U/L ALT (GPT) 9 0-31 U/L Triglyceride 192 H <150 mg/dL Desirable Triglyceride: less than 150 mg/dL Borderline High Triglyceride 150-199 mg/dL High Triglyceride: 200-499 mg/dL Very High Triglyceride: greater than or equal to 5OO mg/dL Cholesterol 124 <200 mg/dL Desirable Cholesterol: less than 200 mg/dL Borderline High Cholesterol: 200-239 mg/dL High Cholesterol: greater than 239 mg/dL LDL Calculated 51 <100 mg/dL Desirable LDL: less than 100 mg/dL Near Optimal/Above Optimal LDL: 110-129 mg/dL Borderline High LDL: 130-159 mg/dL High LDL: 160-189 mg/dL Very High LDL: greater than or equal to 190 mg/dL HDL 35 L >40 mg/dL Desirable HDL: greater than 40 mg/dL Note: This HDL assay may give artificially low results in patients with liver disease. Free T4 1.31 0.71-1.85 ng/dL TSH 3rd Gen. 0.42 0.32-4.0 uIU/mL TSH 3rd Generation ([facility]) Coding Level of Care Code Est Pt Level 4 (96162) Complex EM visit Add On G2211 Diagnoses Acquired hypothyroidism E03.9 Hypothyroidism type: acquired Essential hypertension I10 Hypertension type: essential hypertension Dyslipidemia E78.5 Diabetes mellitus with hyperglycemia, without long-term current use of insulin E11.65 Assessment & Plan Assessment & Plan (1) Hypothyroidism: Code(s): E03.9 - Hypothyroidism, unspecified Category: Medical Qualifiers: Hypothyroidism type: acquired Qualified Code(s): E03.9 - Hypothyroidism, unspecified Plan: Thyroid levels are within normal limits, continued with levothyroxine 112 mcg daily in a.m.. Recheck again levels in 3 months (2) Hypertension: Code(s): I10 - Essential (primary) hypertension Category: Medical Qualifiers: Hypertension type: essential hypertension Qualified Code(s): I10 - Essential (primary) hypertension Plan: Blood pressure at goal of less than 130/80. Continue lisinopril 10 mg daily and metoprolol succinate ER 100 mg once a day together with nifedipine ER tired mg once a Reinforced importance of following a low sodium diet, getting regular exercise, and lowering stress levels. (3) Dyslipidemia: Code(s): E78.5 - Hyperlipidemia, unspecified Category: Medical Plan: Reviewed recent fasting lipid profile with patient with levels within normal limits except for elevated triglycerides . Continue atorvastatin 40 mg daily, better control of diabetes mellitus recommended , in addition to adherence to low-cholesterol diet and regular exercise, at least 30 minutes 3 to 4 times a week. Advised patient to make healthy food choices, eat more fruits, vegetables, whole grains, wild caught fish and low-fat dairy. Limit amount of meat and fried or fatty food products, as well as processed foods and fast foods. Follow-up scheduled with repeat fasting lipid panel in 3 months. (4) Diabetes mellitus with hyperglycemia, without long-term current use of insulin: Code(s): E11.65 - Type 2 diabetes mellitus with hyperglycemia Category: Medical Plan: Patient advised to take her medicines regularly, half a pill box reminder so that she does not miss her dose. Recommended to adhere to her diabetic diet and get regular exercise at least 15 minutes of activity on a daily basis. She is up-to-date with her diabetes eye exam, sees [facility], has an appointment already scheduled for this month. Reminded to get her yearly flu vaccine and COVID booster. goes to [facility] for her diabetes foot exam. Orders: Orders Lipid Panel 09/15/24 E03.9 - Hypothyroidism, unspecified, E11.65 - Type 2 diabetes mellitus with hyperglycemia, E78.5 - Hyperlipidemia, unspecified, I10 - Essential (primary) hypertension, I25.10 - Atherosclerotic heart disease of [place] coronary artery without angina pectoris, M81.8 - Other osteoporosis without current pathological fracture Basic Metabolic Panel Fasting 09/15/24 E03.9 - Hypothyroidism, unspecified, E11.65 - Type 2 diabetes mellitus with hyperglycemia, E78.5 - Hyperlipidemia, unspecified, I10 - Essential (primary) hypertension, I25.10 - Atherosclerotic heart disease of [place] coronary artery without angina pectoris, M81.8 - Other osteoporosis without current pathological fracture Aspartate Amino Transferase 09/15/24 E03.9 - Hypothyroidism, unspecified, E11.65 - Type 2 diabetes mellitus with hyperglycemia, E78.5 - Hyperlipidemia, unspecified, I10 - Essential (primary) hypertension, I25.10 - Atherosclerotic heart disease of [place] coronary artery without angina pectoris, M81.8 - Other osteoporosis without current pathological fracture Alanine Aminotransferase 09/15/24 E03.9 - Hypothyroidism, unspecified, E11.65 - Type 2 diabetes mellitus with hyperglycemia, E78.5 - Hyperlipidemia, unspecified, I10 - Essential (primary) hypertension, I25.10 - Atherosclerotic heart disease of [place] coronary artery without angina pectoris, M81.8 - Other osteoporosis without current pathological fracture Free T4 (Free Thyroxine) 09/15/24 E03.9 - Hypothyroidism, unspecified, E11.65 - Type 2 diabetes mellitus with hyperglycemia, E78.5 - Hyperlipidemia, unspecified, I10 - Essential (primary) hypertension, I25.10 - Atherosclerotic heart disease of [place] coronary artery without angina pectoris, M81.8 - Other osteoporosis without current pathological fracture Hemoglobin A1c 09/15/24 E03.9 - Hypothyroidism, unspecified, E11.65 - Type 2 diabetes mellitus with hyperglycemia, E78.5 - Hyperlipidemia, unspecified, I10 - Essential (primary) hypertension, I25.10 - Atherosclerotic heart disease of [place] coronary artery without angina pectoris, M81.8 - Other osteoporosis without current pathological fracture Microalbumin, Random (w Creat) 09/15/24 E03.9 - Hypothyroidism, unspecified, E11.65 - Type 2 diabetes mellitus with hyperglycemia, E78.5 - Hyperlipidemia, unspecified, I10 - Essential (primary) hypertension, I25.10 - Atherosclerotic heart disease of [place] coronary artery without angina pectoris, M81.8 - Other osteoporosis without current pathological fracture Vitamin D 25-OH Total 09/15/24 E03.9 - Hypothyroidism, unspecified, E11.65 - Type 2 diabetes mellitus with hyperglycemia, E78.5 - Hyperlipidemia, unspecified, I10 - Essential (primary) hypertension, I25.10 - Atherosclerotic heart disease of [place] coronary artery without angina pectoris, M81.8 - Other osteoporosis without current pathological fracture Thyroid Stimulating Hormone 09/15/24 E03.9 - Hypothyroidism, unspecified, E11.65 - Type 2 diabetes mellitus with hyperglycemia, E78.5 - Hyperlipidemia, unspecified, I10 - Essential (primary) hypertension, I25.10 - Atherosclerotic heart disease of [place] coronary artery without angina pectoris, M81.8 - Other osteoporosis without current pathological fracture
== END 2024-05-22 09:29 | disposition home or self-care (01) ==
LOC: HO.HMCC 07:57
PROVIDERS: PCP Internal Medicine; Visit Provider Internal Medicine
DX: E03.9 Hypothyroidism, unspecified (principal); I10 Essential (primary) hypertension; E78.5 Hyperlipidemia, unspecified; E11.65 Type 2 diabetes mellitus with hyperglycemia

== ENCOUNTER → 2024-05-22 07:57 | Outpatient (BNVA) | payer MEDICARE, SELFPAY | PROVIDERS: PCP Internal Medicine; Visit Provider Internal Medicine | DX: E03.9 Hypothyroidism, unspecified (principal); I10 Essential (primary) hypertension; E78.5 Hyperlipidemia, unspecified; E11.65 Type 2 diabetes mellitus with hyperglycemia | CPT/HCPCS: 99212 ==

== ENCOUNTER 2024-07-24 10:10 | Outpatient (REF) | payer MEDICARE, SELFPAY ==
--- NOTE | ~2024-07-24 | MM_ITS ---
EXAMINATION: Dual-Energy X-ray Absorptiometry - Bone Density Study HISTORY: Estrogen deficiency TECHNIQUE: [place] Dual energy absorptiometry (DEXA) of the lumbar spine, total right hip, and femoral neck was performed. COMPARISON: Comparison is made with a prior examination dated 12/11/2020. FINDINGS: The bone mineral density of the lumbar spine is 1.072 with a T-score of -0.9, and a Z-score of 0.4. This represents a BMD change of -1.8% compared to the prior exam. This is not statistically significant. The bone mineral density of the right total hip is 0.807 with a T-score of -1.6, and a Z-score of 0.1. This represents BMD change of 4.8% compared to the prior exam. This is statistically significant. The bone mineral density of the right femoral neck is 0.846 with a T-score of -1.4, and a Z-score of 0.5. This represents BMD change of 31.2% compared to the prior exam. The bone mineral density of the distal radius is 0.747 with a T score of -0.5, and a Z score of 1.5. FRACTURE RISK: The FRAX index suggests a ten year probability of major osteoporotic fracture of 18.0%, and of hip fracture 4.0%. MM/XR DEXA appendicular skeleton IMPRESSION: Based on bone mineral density, and according to World Health Organization (WHO) criteria, the diagnosis is consistent with osteopenia. All bone density values are in grams per centimeter squared. At this facility, the least significant change in BMD with 95% confidence is 0.022 at the lumbar spine, 0.027 at the hip, and 0.023 at the distal 1/3 radius. Electronically signed by: Alphonse Luna MD 07/25/2024 10:24 AM [facility]
== END 2024-07-24 10:11 | disposition home or self-care (01) ==
LOC: HO.MAMMO 10:10
PROVIDERS: PCP Internal Medicine; Visit Provider Internal Medicine Endocrinology, Diabetes & Metabolism
DX: M81.8 Other osteoporosis without current pathological fracture (principal)
CPT/HCPCS: 77081

== ENCOUNTER → 2024-07-24 10:30 | Outpatient (BNV) | payer MEDICARE, SELFPAY | PROVIDERS: PCP Internal Medicine; Visit Provider Radiology Diagnostic Radiology | DX: E28.39 Other primary ovarian failure (principal) | CPT/HCPCS: 77080 ==

== ENCOUNTER 2024-08-07 06:05 | Outpatient (REF) | payer MEDICARE, SELFPAY ==
[2024-08-24 12:24] LABS: NTX Total Volume 1925 mL
[2024-08-24 12:25] LABS: N-Telopeptide 24Hr Urine 24
[2024-08-24 12:27] LABS: NTX-Creatinine 24Hr Urine 0.85
== END 2024-08-07 06:06 | disposition home or self-care (01) ==
LOC: HO.HMGCLNP 06:05
PROVIDERS: PCP Internal Medicine; Visit Provider Internal Medicine Endocrinology, Diabetes & Metabolism
DX: Z13.89 Encounter for screening for other disorder (principal)

== ENCOUNTER 2024-08-10 07:53 | Outpatient (AMB) | payer MEDICARE, SELFPAY ==
--- NOTE | 2024-08-10 07:57 | MHC.OFFVIS ---
Vital Signs 08/10/24 08:00 Height 5 ft 5.79 in Weight 169 lb 15.622 oz BMI 27.6 BP 112/62 Blood Pressure Location Rt brachial Position Sitting Pulse 65 Pulse Source Pulse Oximeter Intake Visit Reasons: 1 year f/u Intake Note: Patient presents today for Osteoporosis and Hypothyroidism follow up. Teacher Visually Impaired Required: No Accompanied by: Self / Same As Patient Allergies cat dander [CAT DANDER] Allergy (Mild, Verified 08/10/24 08:01) ITCHY EYES cat's claw Allergy (Unknown, Verified 08/10/24 08:01) Unknown Medication List - Last Reconciled 08/10/24 by Alphonse Roland MD apixaban (Eliquis) 5 mg PO Q12H atorvastatin 40 mg PO DAILY blood sugar diagnostic (FreeStyle Lite Strips) twice a day blood-glucose meter (FreeStyle Lite Meter kit) As directed cholecalciferol (vitamin D3) (Vitamin D3) 50 mcg PO DAILY Januvia (sitagliptin phosphate) 100 mg PO DAILY NS Jardiance (empagliflozin) 25 mg PO QAM NS lancets As directed twice a day levothyroxine 112 mcg PO DAILY lisinopril 10 mg PO DAILY metformin 1,000 mg PO BID metoprolol succinate ER 100 mg PO DAILY nifedipine ER 30 mg PO DAILY HPI Comments Details: 83 YO Female with PMHx 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 For Osteoporosis Osteoporosis: She also has a history of Osteoporosis. Labs completed 09/13/2020 were consistent with hyperparathyroidism with Calcium 10.6, albumin 4.7, PTH 20 and Vitamin D 36. She was treated with IV Reclast x2, 08/2019 and 10/17/2020. She tolerated this well. She opted to undergo a surgical parathyroidectomy and underwent this 08/26/2022 with removal of her right superior parathyroid and her left superior parathyroid, both hyperplastic. Intraoperative PTH declined from 34 to 8. She remains on Calcium citrate 1 tab PO BID currently with Calcium at goal. She denies an paresthesias or cramping. DXA dated 12/11/2020: FINDINGS: AP SPINE L1-L4: Current: BMD 1.092 g/cm2, Z-score 0.4, T-score -0.7, normal, 0.8% increase from previous, 2.5% increase from baseline (<5% change is not significant). Prior: BMD 1.083 g/cm2. Baseline: BMD 1.065 g/cm2. RIGHT FEMUR, NECK: Current: BMD 0.645 g/cm2, Z-score -1.2, T-score -2.8, osteoporosis. Prior: BMD 0.673 g/cm2. Baseline: BMD 0.696 g/cm2. RIGHT FEMUR, TOTAL: Current: BMD 0.770 g/cm2, Z-score -0.4, T-score -1.9, osteopenia, 1.5% decrease from previous, 1.9% decrease from baseline (<5% change is not significant). Prior: BMD 0.782 g/cm2. Baseline: BMD 0.785 g/cm2. US Thyroid 10/01/2020: Right Thyroid Lobe: 5.7 x 2.3 x 2.1 cm, volume 14.4 mL. Previously 5.2 x 2.0 x 2.1 cm, volume 11.1 mL. Parenchyma: The gland echotexture is heterogeneous. Thyroid vascularity is normal. Left Thyroid Lobe: 4.7 x 1.6 x 1.9 cm, volume 7.5 mL. Previously 4.6 x 1.6 x 1.9 cm, volume 7.1 mL. Parenchyma: The gland echotexture is heterogeneous. Thyroid vascularity is normal. Isthmus: 1.3 cm in maximum AP dimension. Previously 0.3 cm. Estimated total number of nodules greater than or equal to 1 cm: 6 to 10. Pickle Sorter nodules are described as follows: 1.? Location: Right isthmus. ?? ? Size: 2.7 x 1.3 x 2.1 cm, volume 3.7 mL. ?? ? Previously: 2.5 x 1.3 x 2.1 cm, volume 3.6 mL. ?? ? Nodule characteristics: ?? ? Composition: Solid/almost completely solid (2). ?? ? Echogenicity: Hypoechoic (2). ?? ? Shape: Not taller than wide (0). ?? ? Margins: Smooth (0). ?? ? Echogenic Foci: None (0).? ACR TI-RADS total points: 4 ?? ? ACR TI-RADS category: 4 ? Significant change in size (>/= 20% in 2 dimensions and minimal increase of 2 mm or 50% or greater increase in volume): None ?? ? Change in features: None ?? ? Change in ACR TI-RADS risk category: None 2.? Location: Right mid. ?? ? Size: 1.5 x 0.8 x 1.1 cm, volume 0.7 mL. ?? ? Previously: 0.8 x 0.4 x 0.6 cm, volume 0.1 mL. ?? ? Nodule characteristics: ?? ? Composition: Spongiform (0). ?? ? Echogenicity: Anechoic (0). ?? ? Shape: Not taller than wide (0). ?? ? Margins: Smooth (0). ?? ? Echogenic Foci: None (0).? ACR TI-RADS total points: 0 ?? ? ACR TI-RADS category: 1 ? Significant change in size (>/= 20% in 2 dimensions and minimal increase of 2 mm or 50% or greater increase in volume): None ?? ? Change in features: None ?? ? Change in ACR TI-RADS risk category: None 3.? Location: Right mid lateral. This lesion has been biopsied previously. ?? ? Size: 1.8 x 0.8 x 1.1 cm, volume 1.1 mL. ?? ? Previously: 1.2 x 0.8 x 1.2 cm, volume 0.6 mL. ?? ? Nodule characteristics: ?? ? Composition: Mixed cystic and solid (1). ?? ? Echogenicity: Hypoechoic (2). ?? ? Shape: Not taller than wide (0). ?? ? Margins: Smooth (0). ?? ? Echogenic Foci: None (0).? ACR TI-RADS total points: 3 ?? ? ACR TI-RADS category: 3 ? Significant change in size (>/= 20% in 2 dimensions and minimal increase of 2 mm or 50% or greater increase in volume): None ?? ? Change in features: None ?? ? Change in ACR TI-RADS risk category: None 4.? Location: Right inferior. ?? ? Size: 1.3 x 0.8 x 0.9 cm, volume 0.5 mL. ?? ? Previously: New since the previous study. ?? ? Nodule characteristics: ?? ? Composition: Solid (2). ?? ? Echogenicity: Hypoechoic (2). ?? ? Shape: Not taller than wide (0). ?? ? Margins: Smooth (0). ?? ? Echogenic Foci: None (0).? ACR TI-RADS total points: 4 ?? ? ACR TI-RADS category: 4 ? Significant change in size (>/= 20% in 2 dimensions and minimal increase of 2 mm or 50% or greater increase in volume): None ?? ? Change in features: None ?? ? Change in ACR TI-RADS risk category: None 5.? Location: Left mid. ?? ? Size: 1.4 x 0.9 x 1.1 cm, volume 0.7 mL. ?? ? Previously: 1.4 x 1.0 x 1.3 cm, volume 0.95 mL. ?? ? Nodule characteristics: ?? ? Composition: Mixed cystic and solid (1). ?? ? Echogenicity: Hypoechoic (2). ?? ? Shape: Not taller than wide (0). ?? ? Margins: Smooth (0). ?? ? Echogenic Foci: Macrocalcifications (1).? ACR TI-RADS total points: 4 ?? ? ACR TI-RADS category: 4 ? Significant change in size (>/= 20% in 2 dimensions and minimal increase of 2 mm or 50% or greater increase in volume): None ?? ? Change in features: None ?? ? Change in ACR TI-RADS risk category: None NODES: No lymphadenopathy is seen in the tissue surrounding the thyroid gland. Labs: Laboratory Tests 11/04/22 11/04/22 11/09/22 07:53 07:53 09:03 Sodium 140 Potassium 4.1 Creatinine 0.74 Estimated GFR > 60 Hgb A1c (Clinic) 7.0 H 25-OH Vitamin D Total 35.3 TSH 0.10 L Free T4 1.32 PTH Intact <6 L Calcium (PTH Intact) 9.5 No fx since last visit. Taking calcium citrate and vitamin D . 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 History of primary hyperparathyroidism Diabetes mellitus with hyperglycemia, without long-term current use of insulin Hypothyroidism History of multinodular goiter Hypertrophic toenail Elevated bilirubin Vitamin D deficiency Ex-smoker CAD (coronary artery disease) Atherosclerotic heart disease Paroxysmal atrial fibrillation Hypertension Dyslipidemia B12 deficiency Osteoporosis Surgical History Hx of cataract History of parathyroidectomy H/O total thyroidectomy Stented coronary artery Hx of cholecystectomy Hx of hysterectomy Family History Father Sudden cardiac CVD (cardiovascular disease) Mother No problems noted. Sister Substance use disorder Social History Household Members Other:: 2 daughters Housing: House Alcohol intake: current Alcohol intake frequency: a few times a month Alcohol type: wine Patient Tobacco Use Status: Former Tobacco user Years Smoked: 30 years e-Cigarette/Vaping Use: Never Used Current occupational status: retired Cognitive needs: No Hearing needs: No Vision needs: Yes Physical Exam Vital Signs: BMI result Body Mass Index 27.6 Assessment & Plan Assessment & Plan (1) Osteoporosis: Code(s): M81.0 - Age-related osteoporosis without current pathological fracture Category: Medical Qualifiers: Osteoporosis type: other Presence of current pathological fracture: without current pathological fracture Qualified Code(s): M81.8 - Other osteoporosis without current pathological fracture Plan: History of primary hyperparathyroidism status post parathyroidectomy in the presence of osteoporosis. Currently taking calcium and vitamin-D. Recent DEXA showed stability in bone density and low bone mass but without the presence of osteoporosis Plan is to continue the calcium and vitamin-D supplementation. At this point would hold off on giving any anti resorptive therapy. Patient returned to the care of her primary care provider who can measure a DEXA bone density in about 2 years time. If DEXA bone density declines into the osteoporotic range, either the patient can be started on anti resorptive therapy with either an oral or intravenous bisphosphonate or returned back to endocrinology Coding Level of Care Code Est Pt Level 3 (28359) Diagnoses Other osteoporosis without current pathological fracture M81.8 Osteoporosis type: other Presence of current pathological fracture: without current pathological fracture
[2024-08-10 08:00] VITALS: BP 112/62; PULSE 65; BMI 27.6
== END 2024-08-10 08:13 | disposition home or self-care (01) ==
PROVIDERS: PCP Internal Medicine; Visit Provider Internal Medicine Endocrinology, Diabetes & Metabolism
DX: M81.8 Other osteoporosis without current pathological fracture (principal)
CPT/HCPCS: 99213

== ENCOUNTER → 2024-08-10 07:53 | Outpatient (BNVA) | payer MEDICARE, SELFPAY | PROVIDERS: PCP Internal Medicine; Visit Provider Internal Medicine Endocrinology, Diabetes & Metabolism | DX: M81.8 Other osteoporosis without current pathological fracture (principal) | CPT/HCPCS: 99212 ==

== ENCOUNTER 2024-09-14 08:12 | Outpatient (REF) | payer MEDICARE, SELFPAY ==
--- OUTSIDE RECORDS SUMMARY | 2024-09-14 08:29 | XMS_ITS ---
Author Organization [facility] Address [address] [place] [address] Care Team Providers Care Tool Chaser Name Role Phone Teresita JEAN BAPTISTE, Allegra Quinn Primary Care Provider Un available Lisandra Rodríguez Unavailable [phone] Encounters Encounter Location Date Provider Diagnosis [facility] [address] [place] [address] 08/04/2024 Lisandra Rodríguez Plan Of Treatment Next Appt Details Provider Name:Lisandra sevilla, 10/27/2024 12:15:00 PM, [address] [place], [address], Progress Notes * Angelika RONDOB:1940 (83 yo F)Acc No.[id number]:08/04/2024 Progress Note Patient:?Angelika RON Provider:?Lisandra Rodríguez DPM :1940???Age:83 Y???Sex:Female D ate:08/04/2024 Address:[address] [place], [place] [id number] Pcp:Stefania Bojorquez Subjective: * Chief Complaints: * ??? * Medical History:? Objective: * Vitals:? Assessment: Plan: * Treatment: * Images: * The named appointment provid er may or may not be the originator of this progress note, and it is not deemed complete until electronically signed by the appointment provider. Sign off status: Pending * Provider:?Lisandra Rodríguez DPM Date:? Generated for Avani chowdary/Karoline/Pauline on:?09/14/2024 08:29 AM EST
--- OUTSIDE RECORDS SUMMARY | 2024-09-14 08:30 | XMS_ITS | Patient Health Record ---
[facility] Address [address] [place] [address] Care Team Providers Care Medicine Technologist Name Role Phone Teresita JEAN BAPTISTE, Allegra Quinn Primary Care Provider Un available Marcos Lisandra Unavailable [phone] AltmanFabianaCalvin Unavailable [phone] Latoya Rodriguez Unavailable [phone] Allergies No Known Allergies Results Component Value Reference Range Notes HEMOGLOBIN A1C (GLYCOHEMOGLO BIN) Reviewed date:01/24/2024 09:14:13 AM Interpretation: Performing Lab: Notes/Report: HEMOGLOBIN A1C (HH) 7.3 HEMOGLOBIN A1C (GLYCOHEMOGLO BIN) Reviewed date:08/09/2024 09:10:42 AM Interpretation: Performing Lab: Notes/Report: HEMOGLOBIN A1C % (HH) 7.4 Reason For Referral No Information Medications Medication SIG (Take, Route, Frequency, Duration) Notes Start Date End Date Status NIFEdipine Active Metoprolol Succinate 100 MG 1 capsule Orally Once a day for 30 day(s) Active Jardiance Active Vitamin D3 50 MCG (2000 UT) 1 capsule Orally Once a day for 30 day(s) Active PreserVision AREDS - as directed Orally Active Atorvastatin Calcium 40 MG 1 tablet Orally Once a day Active Vitamin B12 1000 MCG 1 tablet Orally Onc e a day for 30 day(s) Not-Taking januvia Active glipiZIDE XL 5 MG 1 tablet with breakf ast Orally Once a day Not-Taking Eliquis 5 MG 1 tablet Orally Twic e a day for 30 day(s) Active Atenolol Not-Taking Calcium Active zzzExtra Depth Orthopedic Shoes (1 Pair) with Customized Heat Molded Multidensity Innersoles (3 Pair) . . . Dx: NIDDM (E11.9), Hammertoe Foot Deformity (M20.41,M20.42), Preulcerative Skin Lesion(s) (L85.1) for . 06/07/2015 Not-Taki ng metFORMIN HCl 1000 MG 1 tablet with a me al Orally Once a day for 30 day(s) Active Aspirin Not-Taking Lisinopril 10 MG 1 tablet Orally Once a day Active Levothyroxine Sodium Active Clopidogrel Bisulfate Not-Taking Immunizations Vaccine Route Administration Date Status Comme nts COVID-19 Pfizer BioNTech Vaccine Unknown 06/03/2021 Administered 1st 08/28/20 2nd 09/18/20 Influenza Unknown 01/24/2024 Refused Social History Tobacco Use: Social History Observation Description Date Details (start date - stop date) Never Smoker NA - NA Alcohol Screen Question Answer Notes Did you have a drink containing alcohol in the p ast year? Yes Points 0 Interpretation Negative Tobacco use other than smoking: Question Answer Notes Are you an other tobacco user? No Tobacco Control (Standard) Question Answer Notes Tobacco use: Nonsmoker Problems Problem Type SNOMED Code ICD Code Onset Dates Problem Status W/U Status Risk Notes Problem Acquired hallux valgus (39827424) Hallux valgus (acquired), left foot (M20.12) Active confirmed Problem Type II diabetes mellitus without complication (166011646) Type 2 diabetes mellitus without complications (E11.9) Active confirmed Problem Acquired hammer toe of right foot (5706018716377043 ) Other hammer toe(s) (acquired), right foot (M20.41) Active confirmed Problem Acquired hammer toe of left foot (4039491861081785 ) Other hammer toe(s) (acquired), left foot (M20.42) Active confirmed Problem Polyneuropathy due to type 2 diabetes mellitus (224449874) Type 2 diabetes mellitus with diabetic polyneuropathy (E11.42) Active confirmed Problem Type 2 diabetes mellitus without complication (701076011) Type 2 diabetes mellitus without complication (E11.9) Active confirmed Vital Signs Blood pressure diastolic 60 mm Hg 08/09/2024 Height 5 ft 4.5 in in 08/09/2024 Blood pressure systolic 120 mm Hg 08/09/2024 Weight 185 lbs 08/09/2024 BMI 31.26 kg/m2 08/09/2024 Encounters Encounter Location Date Provider Diagnosis [address] [address] 01/24/2024 Calvin Altman Type 2 diabetes mellitus with diabetic polyneuropathy E11.42 ; Skin disease L98.9 ; Ingrowing nail L60.0 ; Tinea unguium B35.1 ; Localized edema R60.0 ; Hallux valgus (acquired), left foot M20.12 ; Other hammer toe(s) (acquired), left foot M20.42 and Other hammer toe(s) (acquired), right foot M20.[address] [address] 08/09/2024 Lisandra Rodríguez Tinea unguium B35.1 ; Other hammer toe(s) (acquired), right foot M20.41 ; Pain in right toe(s) M79.674 ; Pain in left toe(s) M79.675 ; Type 2 diabetes mellitus without complication E11.9 and Other hammer toe(s) (acquired), left foot M20.[address] [address] 05/18/2024 [facility]oya [facility] [address] [address] 08/03/2024 Lisandra Rodríguez [address] [address] 08/09/2024 Lisandra Rodríguez Assessments Encounter Date Diagnosis (ICD Code) Assessment Notes Treatment Notes Treatment Clinical Notes Section Notes 01/24/2024 Type 2 diabetes mellitus with diabetic polyneuropathy (ICD-10 - E11.42) 08/09/2024 Tinea unguium (ICD-10 - B35.1) 08/09/2024 Other hammer toe(s) (acquired), right foot (ICD-10 - M20.41) Patient Educated with: DIABETIC FOOT CARE INSTRUCTIONS. pdf (DIABETIC FOOT CARE INSTRUCTIONS. pdf) 08/09/2024 Pain in right toe(s) (ICD-10 - M79.674) 01/24/2024 Skin disease (ICD-10 - L98.9) 01/24/2024 Ingrowing nail (ICD-10 - L60.0) 01/24/2024 Tinea unguium (ICD-10 - B35.1) 08/09/2024 Pain in left toe(s) (ICD-10 - M79.675) 08/09/2024 Type 2 diabetes mellitus without complication (ICD-10 - E11.9) 01/24/2024 Localized edema (ICD-10 - R60.0) 01/24/2024 Hallux valgus (acquired), left foot (ICD-10 - M20.12) 08/09/2024 Other hammer toe(s) (acquired), left foot (ICD-10 - M20.42) 01/24/2024 Other hammer toe(s) (acquired), left foot (ICD-10 - M20.42) 01/24/2024 Other hammer toe(s) (acquired), right foot (ICD-10 - M20.41) Plan Of Treatment Pending Test Test Name Order Date Hemoglobin A1c 06/07/2015 X ray : Foot, right 3V 09/09/2023 [id number] NAIL, 6 OR MORE 06/07/2015 [id number] NAIL, 6 OR MORE 09/13/2015 [id number] Plate 09/13/2015 [id number] Plate Each Additional [id number]-Idebwhyg Plate Each Additional Next Appt Details Provider Name:Lisandra sevilla, 10/27/2024 12:15:00 PM, [address] [facility], [place], [address], Insurance Providers Payer Name Payer Address Payer Phone Subscriber Number Group Number Insured Name Patient Relationship to Insured Coverage Start Date Coverage End Date [employer] [place] [employer] [facility] [address] [place] [address] [id number] Angelika Mora Self - patient is the insured Medical (General) History Medical History History ICD Code Heart disease type II diabetes Hypertension Measles Mumps Chicken pox Cholesterol Broken bones Cancer Cataracts Gall bladder problems thyroid Joint implants/screws Heart Stents covid-19 Macular degeneration Surgical History Surgery Date(Month/Year) hysterectomy 2014 stent insertion x2 2016 gall bladder removal 2015 hip fracture - kim insertion 2016 thyroid and parathyroidectomy 08/25/2022 R cataract surgery 09/18/22 Hospitalization History Reason Date(Month/Year) [facility], overnight, hear t issues 05/19/2015
--- OUTSIDE RECORDS SUMMARY | 2024-09-14 08:30 | XMS_ITS ---
Author Organization [facility] Address [address] [place] [address] Care Team Providers Care Laborer Mine Name Role Phone Teresita JEAN BAPTISTE, Allegra Quinn Primary Care Provider Un available Lisandra Rodríguez Unavailable [phone] Allergies No Known Allergies REASON FOR VISIT At Risk Footcare, Painful Nail(s) aggravated by shoes and causing difficulty standing/walking., ToeIrritation Medications Medication SIG (Take, Route, Frequency, Duration) Notes Start Date End Date Status Vitamin B12 1000 MCG 1 tablet Orally Onc e a day for 30 day(s) Not-Taking Atenolol Not-Taking zzzExtra Depth Orthopedic Shoes (1 Pair) with Customized Heat Molded Multidensity Innersoles (3 Pair) . . . Dx: NIDDM (E11.9), Hammertoe Foot Deformity (M20.41,M20.42), Preulcerative Skin Lesion(s) (L85.1) for . 06/07/2015 Not-Taki ng Clopidogrel Bisulfate Not-Taking Aspirin Not-Taking NIFEdipine Active Metoprolol Succinate 100 MG 1 capsule Orally Once a day for 30 day(s) Active Vitamin D3 50 MCG (2000 UT) 1 capsule Orally Once a day for 30 day(s) Active PreserVision AREDS - as directed Orally Active glipiZIDE XL 5 MG 1 tablet with breakf ast Orally Once a day Not-Taking Eliquis 5 MG 1 tablet Orally Twic e a day for 30 day(s) Active Calcium Active Lisinopril 10 MG 1 tablet Orally Once a day Active Levothyroxine Sodium Active metFORMIN HCl 1000 MG 1 tablet with a me al Orally Once a day for 30 day(s) Active Jardiance Active Atorvastatin Calcium 40 MG 1 tablet Orally Once a day Active januvia Active Social History Tobacco Use: Social History Observation Description Date Details (start date - stop date) Never Smoker NA - NA Tobacco use other than smoking: Question Answer Notes Are you an other tobacco user? No Tobacco Control (Standard) Question Answer Notes Tobacco use: Nonsmoker Problems Problem Type SNOMED Code ICD Code Onset Dates Problem Status W/U Status Risk Notes Problem Type 2 diabetes mellitus without complication (231313425) Type 2 diabetes mellitus without complication (E11.9) Active confirmed Vital Signs Height 5 ft 4.5 in in 08/09/2024 Weight 185 lbs 08/09/2024 BMI 31.26 kg/m2 08/09/2024 Blood pressure systolic 120 mm Hg 08/09/19 25 Blood pressure diastolic 60 mm Hg 025 Encounters Encounter Location Date Provider Diagnosis [facility] [address] [place] [address] 08/09/2024 Lisandra Rodríguez Tinea unguium B35.1 ; Other hammer toe(s) (acquired), right foot M20.41 ; Pain in right toe(s) M79.674 ; Pain in left toe(s) M79.675 ; Type 2 diabetes mellitus without complication E11.9 and Other hammer toe(s) (acquired), left foot M20.42 Assessments Encounter Date Diagnosis (ICD Code) Assessment Notes Treatment Notes Treatment Clinical Notes Section Notes 08/09/2024 Tinea unguium (ICD-10 - B35.1) 08/09/2024 Other hammer toe(s) (acquired), right foot (ICD-10 - M20.41) Patient Educated with: DIABETIC FOOT CARE INSTRUCTIONS.p df (DIABETIC FOOT CARE INSTRUCTIONS.p df) 08/09/2024 Pain in right toe(s) (ICD-10 - M79.674) 08/09/2024 Pain in left toe(s) (ICD-10 - M79.675) 08/09/2024 Type 2 diabetes mellitus without complication (ICD-10 - E11.9) 08/09/2024 Other hammer toe(s) (acquired), left foot (ICD-10 - M20.42) Plan Of Treatment Treatment Notes Assessment Notes Other hammer toe(s) (acquired), right fo ot Patient Educated with: DIABETIC FOOT CARE INSTRUCTIONS.pdf (DIABETIC FOOT CARE INSTRUCTIONS.pdf) Next Appt Details Follow Up: 3 Months, Reason: Provider Name:Lisandra sevilla, 10/27/2024 12:15:00 PM, [address] [place] [address], [id number], Procedure Notes * Category Sub-Category Detail Notes Debride Nail 6-10 Nail debridement Due to the cl inical pathology outlined in the exam findings, performance of this nail treatment is medically necessary as its management by an unskilled/untrained nonprofessional would put this patients foot and overall health at risk. Therefore, debridement to affected nail(s), as described in exam (TA, T1, T2, T3, T4, T5, T6, T7, T8, T9, ), was performed exclusively by the physician of record to reduce/remove overall nail length, girth, thickness, subungual debris, and necrotic tissue, by manual and/or electrical means through the use of a nail nipper and/or dremel-type instrument lens grinder, to a more viable healthy nail plate or bed tissue 6-10 nails in total. Silver nitrate was used for any petechial bleeding as necessary. Definitive antifungal treatment options, both pharmaceutical and surgical, have been reviewed and discussed with the patient. The patient solely prefers the use of intermittent/as needed professional debridement services for their nail condition and understands the need for additional periodic treatments to maintain effectiveness in symptomatic relief - 65600 Progress Notes * RON CoyivetteDOB:1940 (83 yo F)Acc No.[id number]:08/09/2024 Progress Note Patient:?Angelika RON Provider:?Lisandra Rodríguez DPM :1940???Age:83 Y???Sex:Female D ate:08/09/2024 Address:[address] [place], [place] [id number] Pcp:Stefania Bojorquez Subjective: * Chief Complaints: * ???At Risk FootcarePainful N ail(s) aggravated by shoes and causing difficulty standing/walking.Toe Irritation * HPI: ???At Risk footcare:?Pt States Last PCP Visit:?Date?04/18/2024 ???Toe pain:?Location:?B/L feet.?Duration:?several years.?Course:?worse.?Aggravated by:?shoes, any pressure.?Treatments:?change in shoes.? * ROS:?General/Constitutional:?Nausea?denies.?Vomiting?denies.?Hunger Thirst?denies.?Loss appetite?denies.?Chills?denies.?Fatigue?denies.?Fever?denies.?Night Sweats?denies.?Unexplained weight loss?denies.?Unexplained weight gain?denies.?HEENTM:?Dentures?denies.?Dizziness?denies.?Glasses/contacts?denies.?Retinopathy?den ies.?Blurred/double vision?denies.?TMJ?denies.?Discharge/drainage?denies.?Implants?denies.?Sore throat?denies.?Dental implants?denies.?Hard of hearing ?denies.?Difficulty chewing/swallowing/speaking?denies.?Nose bleeds?denies.?Sore mouth?denies.?Respiratory:?On O xygen?denies.?Pneumonia/pleurisy?denies.?Bronchitis?denies.?Emphysema?denies.?Co ughing?denies.?Cough blood?denies.?Shortness of breath?denies.?Wheezing?denies.?Cardiovascular:?Pacemaker?denies.?MVP?denies.?WPW?denies.?CHF?denies.?Heart attack?admits.?Septal defect?denies.?Rapid beat?denies.?Chest pain ?denies.?Atrial Fib.?admits.?Murmur/Palpitations?denies.?Gastrointestinal:?Hemorrhoids?denies.?Stomach/Abdominal pain?denies.?Dark blood stool?denies.?Irritable bowel ?denies.?Constipation?denies.?Diarrhea?denies.?Hematology:?Swelling?denies.?Clots?denies.?Varicose Veins?denies.?Bruising?denies.?Bleeding problem?denies.?Genitourinary:?Blood urine?denies.?Frequent/Painfu/urination/bladder control?denies.?Kidney stones?denies.?Infection (UTI)?denies.?Nephropathy?denies.?sex trans dis (STD)?denies.?Prostate?denies.?Musculoskeletal:?Hammertoes?admits.?Bunions?denies.?Back Pain?denies.?Muscle Cramps/ Resting?denies.?Muscle cramps / walking?denies.?Generalized aches and pains?denies.?Weakness?denies.?Integ.:?Donnelly?denies.?Scars?denies.?Corns/calluses?denies.?Ingrown nails?admits.?Painful nails?denies.?Open Sores?denies.?Rashes?denies.?Neurologic:?Difficulty sleeping?denies.?Brain disorder?denies.?Numbness?denies.?Balance t rouble?denies.?Confusion?denies.?Fainting/blackouts?denies.?Tingling?denies.?Werner mors?denies.? * Medical History:? * Surgical History:?hysterecto my 2014stent insertion x2 2016gall bladder removal 2015hip fracture - kim insertion 2016thyroid and parathyroidectomy 08/25/2022R cataract surgery 09/18/22 * Hospitalization/Major Diagno stic Procedure:?[facility], overnight, heart issues 05/19/2015 * Family History:?Mother: dece ased.?Father: , diagnosed with Unspecified heart disease.? * Social History:?Tobacco Use:?Tobacco use other than smoking?Are you an other tobacco user??No ?Tobacco Control (Standard)?Tobacco use:?Nonsmoker ???Miscellaneous:?Caffeine: yes, frequency:, 1-2 cups per day. ?Children: yes, 3. ?Exercise: yes, Babysitting , occasional, walking. ?Marital status: . ?Occupation: Retired-, House /homemaker. * Medications:?TakingJardiance januvia Atorvastatin Calcium 40 MG Tablet 1 tablet Orally Once a day Calcium Eliquis 5 MG Tablet 1 tablet Orally Twice a day Levothyroxine Sodium Lisinopril 10 MG Tablet 1 tablet Orally Once a day metFORMIN HCl 1000 MG Tablet 1 tablet with a meal Orally Once a day Metoprolol Succinate 100 MG Capsule ER 24 Hour Sprinkle 1 capsule Orally Once a day NIFEdipine PreserVision AREDS - Capsule as directed Orally Vitamin D3 50 MCG (2000 UT) Capsule 1 capsule Orally Once a day Taking Jardiance Taking januvia Taking Atorvastatin Calcium 40 MG Tablet 1 tablet Orally Once a day Taking Calcium Taking Eliquis 5 MG Tablet 1 tablet Orally Twice a day Taking Levothyroxine Sodium Taking Lisinopril 10 MG Tablet 1 tablet Orally Once a day Taking metFORMIN HCl 1000 MG Tablet 1 tablet with a meal Orally Once a day Taking Metoprolol Succinate 100 MG Capsule ER 24 Hour Sprinkle 1 capsule Orally Once a day Taking NIFEdipine Taking PreserVision AREDS - Capsule as directed Orally Taking Vitamin D3 50 MCG (2000 UT) Capsule 1 capsule Orally Once a day Not-Taking/PRNglipiZIDE XL 5 MG Tablet Extended Release 24 Hour 1 tablet with breakfast Orally Once a day Vitamin B12 1000 MCG Tablet Extended Release 1 tablet Orally Once a day zzzExtra Depth Orthopedic Shoes (1 Pair) with Customized Heat Molded Multidensity Innersoles (3 Pair) . . . . Dx: NIDDM (E11.9), Hammertoe Foot Deformity (M20.41,M20.42), Preulcerative Skin Lesion(s) (L85.1) Atenolol Clopidogrel Bisulfate Aspirin Medication List reviewed and reconciled with the patientNot-Taking/PRN glipiZIDE XL 5 MG Tablet Extended Release 24 Hour 1 tablet with breakfast Orally Once a day Not-Taking/PRN Vitamin B12 1000 MCG Tablet Extended Release 1 tablet Orally Once a day Not-Taking/PRN zzzExtra Depth Orthopedic Shoes (1 Pair) with Customized Heat Molded Multidensity Innersoles (3 Pair) . . . . Dx: NIDDM (E11.9), Hammertoe Foot Deformity (M20.41,M20.42), Preulcerative Skin Lesion(s) (L85.1) Not-Taking/PRN Atenolol Not-Taking/PRN Clopidogrel Bisulfate Not- Taking/PRN Aspirin Medication List reviewed and reconciled with the patient * Allergies:?N.K.D.A.yes[Mary emerson Verified] Objective: * Vitals:?Ht: 5 ft 4.5 in, Wt: 185, BMI: 31.26, Shoe size: 9-9.5, BP: 120/60 mm Hg, BS: not taken, Wt-k.92 kg. * ???Past Orders: ???Lab:HEMOGLOBIN A1C (GLYCO HEMOGLOBIN) (Order Date - 04/18/2024) (Collection Date & Time - 04/18/2024 09:09 AM) ? Value Reference Range ?HEMOGLOBIN A1C % (HH) 7.4 * Examination: ???Ophthalmology Referral: ?DIABETES EYE EXAM?Procedure Performed:?Yes ?Date of Exam Performed?07/19/2024 ?Findings of Diabetic Eye Exam:?no retinopathy?Nails: ?NAILS are:?Elongated, overgrown, dystrophic, lytic, greater than 3mm thick, discolored and friable with crumbly malodorous subungual debris, with pain on palpation, TA, T1, T2, T3, T4, T5, T6, T7, T8, T9.?Dermatologic: ?SKIN FINDINGS:?Skin exam reveals normal texture, elasticity, and turgor. There are no masses. The interspaces are clear, B/L, Skin exam reveals Keratotic lesion(s) located at.?Vascular: ?DP PULSES (B):?3/4, B/L.?PT PULSES (B):?3/4, B/L.?CAPILLARY FILL TIME:?immediate, all digits, B/L.?TROPHIC CONDITION-TEXTURE/ELASTICITY/TURGOR/HAIR GROWTH (B):?normal, B/L.?TEMPERTURE GRADIENT (C):?normal, warm to cool, proximal to distal, B/L, B/L.?PIGMENTATION:?normal, B/L.?EDEMA (C):?absent, B/L.?CLAUDICATION (C):?denies, B/L.?REST PAIN:?denies, B/L.?Neurological: ?SENSORY:?Neurological exam reveals intact sensorium, pain sensation normal, vibration sensation intact, pinprick sensation is normal in the lower extremities, 5.07 monofilament test performed at plantar aspects of 5 varied sites per foot shows sensation, normal, B/L, Pt denies, anesthesia, burning, paresthesia, tingling, B/L.?General Examination: ?GENERAL APPEARANCE:?Reveals a pleasant, alert, well nourished, well- developed, well hydrated individual, who demonstrates proper attention to hygiene/body habitus, and is in no acute distress, Pt serves as own historian for office visit today.?ORIENTED:?person, place, and time.?FOOT EXAM:?Lower Extremity Neurological Exam performed:?Yes Date ?Visual exam of foot performed:?Yes ?Date?08/09/2024 ?Footwear Evaluation?Footwear Evaluation performed:?Yes?Orthopedic: ?MUSCLE STRENGTH:?5/5 all groups in a symmetrical fashion, B/L.?DIGITAL DEFORMITIES:?Digital contracture, PIPJ, 2-5 B/L, incompl-reducible to push-up test, no over, nor underlapping,?there is?evidence of shoe producing skin irritation.?FOOTWEAR:?worn, non-supportive, shoe gear properties exacerbate patient's foot/toe deformity.? Assessment: * Assessment: 1.?Other hammer toe(s) (acqu ired), right foot - M20.41 (Primary)???Specify :Chronic problem???2.?Tinea unguium - B35.1???3.?Pain in right toe(s) - M79.674???4.?Pain in left toe(s) - M79.675???5.?Type 2 diabetes mellitus without complication - E11.9???6.?Other hammer toe(s) (acquired), left foot - M20.42???Specify :Chronic problem??? Plan: * Treatment: * Procedures:?Debride Nail 6-10:?Nail debridement?Due to the clinical pathology outlined in the exam findings, performance of this nail treatment is medically necessary as its management by an unskilled/untrained nonprofessional would put this patients foot and overall health at risk. Therefore, debridement to affected nail(s), as described in exam (TA, T1, T2, T3, T4, T5, T6, T7, T8, T9, ), was performed exclusively by the physician of record to reduce/remove overall nail length, girth, thickness, subungual debris, and necrotic tissue, by manual and/or electrical means through the use of a nail nipper and/or dremel-type instrument lens grinder, to a more viable healthy nail plate or bed tissue 6- 10 nails in total. Silver nitrate was used for any petechial bleeding as necessary. Definitive antifungal treatment options, both pharmaceutical and surgical, have been reviewed and discussed with the patient. The patient solely prefers the use of intermittent/as needed professional debridement services for their nail condition and understands the need for additional periodic treatments to maintain effectiveness in symptomatic relief - [id number].? * Procedure Codes:?74633 DEBRI DE NAIL, 6 OR MORE * Preventive Medicine:? ??Counseling:?Discussion:?-13: Office or other outpatient visit for the evaluation and management of an established patient, which required a medically appropriate history and/or examination and LOW level of DECISION MAKING for: 1 STABLE ACUTE UNCOMPLICATED PROBLEM, 2 OR MORE MINOR PROBLEMS, OR 1 STABLE CHRONIC PROBLEM, THAT POSE(S) A LOW RISK FOR MORBIDITY/MORTALITY. The visit on the day of the encounter encompassed interpreting the data and educating the patient as to the nature of their condition, treatment options available according to their individual PMH, meds, allergies, and overall health/living conditions, as well as any potential risks or complications that may occur from a failure to adhere to, and participate in, the recommended course of therapy. The discussion included a complete verbal, and/or written explanation of the examination results, any x-rays taken, the proposed diagnosis, and outline of the treatment plan. A schedule for future care needs was also explained. The patient verbalized an understanding of the instructions at this time and agreed to be an active participant in their treatment. If the patient should think of any questions or concerns after the visit, I have encouraged the patient to call the office.?Digital Surgery:?Digital surgery was discussed with the patient, We elected to try conservative treatment at the present time, due to the patients medical history and increased asssociated post-operative risks.?Digital Treatment:?HT- I explained to the patient the possible etiologies of Hammertoes, including genetics/foot type/shoegear/activity level/exercise routine and the risks/benefits of all the different treatment options for their pain including: No treatment at all, Rest, Ice, New/supportive/wider/deeper Shoegear, Digital Padding/Strapping/Taping/Bracing/Gel protective sleeves, Foot/Ankle AFO Bracing, Stretching exercises, Deep Tissue Massage, Arch support/shoe inserts with splay metatarsal padding, and Custom orthoses. I insisted that any digital devices be removed daily and not worn overnight for safety. The patient is to carefully examine the toes daily for any skin irritation while using any splinting or padding device. The advantages and disadvantages of each option were discussed and the patients questions re: shoegear, padding, custom vs prefabricated inserts, activity level, and consistency in home treatment regimens for optimal success were answered to their verbally confirmed satisfaction.?Shoe Gear Counseling:?SHOE Rx - The patient was counseled in great detail on their muscoloskeletal foot and toe deformities which coincided with the dermatological presentations visualized on exam. We discussed how their deformities put the integrity of their feet at risk for potential pedal complications which makes the accomidative diabetic shoes and cutomizable inserts medically necessary. We discussed the different shoe and insert treatment types and options, as well as the important advantages for adhering to regularly wearing these accomidative devices daily. The patient was made aware of the fact that a failure to abide by these recommedations may be deleterious to their foot health as they are able to prevent many pedal complications such as skin irritation, skin ulceration, infection, and even loss of toe/foot/leg/or life. Time was also spent with the patient dispensing and discussing proper diabetic footcare techniques including daily skin moisturization, daily foot inspection for any interruption in skin integrity including open lesions, or sign of infection such as redness/malodor/drainage/swelling. Also discussed and recommended were procedures regarding daily shoe inspection for the presence of internal foreign bodies as well as any visualized irregular shoe or insert wear. Patient questions re: shoes, inserts, and self foot inspections were answered to their satisfaction as the patient verbally confirmed a full understanding of the above information, Patient DEFERS recommended Extra Depth Orthopedic pressure-accommodative shoes against medical advice.? ??Screening/Special Tests:?Fall Risk?Screening:?No falls in the past year ?FALLS: Screening for Future Fall Risk?Have you had any falls with injury in the past year??No * Follow Up:?3 Months * Images: * Sign off status: Completed true * Provider:?Lisandra Rodríguez DPM Date:? Generated for Avani chowdary/Karoline/Pauline on:?09/14/2024 08:29 AM EST History and Physical Notes * HPI (History of Present Illness) Category Sub-Category Detail Notes Category Not es Toe pain Location: B/L feet Duration: several years Course: worse Aggravated by: shoes, any pressure Treatments: change in shoes At Risk footcare Pt States Last PCP Visit: Date: 4 Examination Category Sub-Category Detail Notes Category Not es Neurological SENSORY: Neurological exa m reveals intact sensorium, pain sensation normal, vibration sensation intact, pinprick sensation is normal in the lower extremities, 5.07 monofilament test performed at plantar aspects of 5 varied sites per foot shows sensation, normal, B/L, Pt denies, anesthesia, burning, paresthesia, tingling, B/L Dermatologic SKIN FINDINGS: Skin exam reveal s normal texture, elasticity, and turgor. There are no masses. The interspaces are clear, B/L, Skin exam reveals Keratotic lesion(s) located at Orthopedic FOOTWEAR: worn, non-suppor tive, shoe gear properties exacerbate patient's foot/toe deformity DIGITAL DEFORMITIES: Digital contracture , PIPJ, 2-5 B/L, incompl-reducible to push-up test, no over, nor underlapping, there is evidence of shoe producing skin irritation MUSCLE STRENGTH: 5/5 all groups in a symmetrical fashion, B/L General Examination GENERAL APPEARANCE: Reveals a pleasant, alert, well nourished, well-developed, well hydrated individual, who demonstrates proper attention to hygiene/body habitus, and is in no acute distress, Pt serves as own historian for office visit today FOOT EXAM: Lower Extremity Neurological Exa m performed:: Yes Date Visual exam of foot performed:: Yes Date: 08/09/2024 ORIENTED: person, place, and t addis Footwear Evaluation Footwear Evaluation performe d:: Yes Ophthalmology Referral DIABETES EYE EXAM Procedure Perform ed:: Yes ?Date of Exam Performed: 07/19/2024 Findings of Diabetic Eye Exam:: no retin opathy Vascular DP PULSES (B): 3/4, B/L PT PULSES (B): 3/4, B/L CAPILLARY FILL TIME: immediate, all digi ts, B/L TEMPERTURE GRADIENT (C): normal, warm to cool, proximal to distal, B/L, B/L TROPHIC CONDITION-TEXTURE/ELASTICITY/TURGOR/HAIR GROWTH (B): normal, B/L EDEMA (C): absent, B/L CLAUDICATION (C): denies, B/L REST PAIN: denies, B/L PIGMENTATION: normal, B/L Nails NAILS are: Elongated, overg rown, dystrophic, lytic, greater than 3mm thick, discolored and friable with crumbly malodorous subungual debris, with pain on palpation, TA, T1, T2, T3, T4, T5, T6, T7, T8, T9
--- OUTSIDE RECORDS SUMMARY | 2024-09-14 08:30 | XMS_ITS ---
Author Organization [facility] Address [address] [place] [address] Care Team Providers Care Cps Team Lead Name Role Phone Teresita JEAN BAPTISTE, Allegra Quinn Primary Care Provider Un available Lisandra Rodríguez Unavailable [phone] REASON FOR VISIT formula 7 Encounters Encounter Location Date Provider Diagnosis [address] [address] 08/09/2024 Lisandra Rodríguez Plan Of Treatment Next Appt Details Provider Name:Lisandra sevilla, 10/27/2024 12:15:00 PM, [address] [place], [address], Progress Notes * RONCoyivetteDOB:1940 (83 yo F)Acc No.[id number]:08/09/2024 Patient:?Angelika RON :1940???Age:83 Y???Sex:Female Address:[address] [place] [address], [address] * true * Date:? Generated for Printi ricarda/Karoline/eTransmitting on:?09/14/2024 08:30 AM EST
[2024-09-14 10:25] LABS: Estimated Average Glucose 192 mg/dL; Hemoglobin A1c % 8.3 % (<6.0)
[2024-09-14 10:42] LABS: Alanine Aminotransferase 9 U/L (0-31); Anion Gap 15 (12-20); Aspartate Amino Transferase 16 U/L (5-31); Blood Urea Nitrogen 14 mg/dL (9-16); Calcium 9.3 mg/dL (8.4-10.2); Carbon Dioxide 25 mmol/L (22-29); Chloride 106 mmol/L (96-108); Cholesterol 134 mg/dL (<200); Estimated Glomerular Filt Rate > 60; Glucose Fasting 212 mg/dL (60-99); HDL Cholesterol 42 mg/dL (>40); LDL Cholesterol Calculated 48 mg/dL (<100); Potassium 3.7 mmol/L (3.3-5.1); Sodium 142 mmol/L (135-145); Triglycerides 223 mg/dL (<150)
[2024-09-14 10:53] LABS: Creatinine Urine 172.51 mg/dL; Microalbum/Creatinine Ratio Ur 41.7 ug/mg cr (<30)
[2024-09-14 11:01] LABS: Free T4 (Free Thyroxine) 1.28 ng/dL (0.71-1.85); Thyroid Stimulating Hormone 0.68 uIU/mL (0.32-4.0); Vitamin D 25-OH Total 35.8 ng/mL (>30)
== END 2024-09-14 08:13 | disposition home or self-care (01) ==
LOC: HO.HMGCLDS 08:12
PROVIDERS: PCP Internal Medicine; Visit Provider Internal Medicine
DX: I10 Essential (primary) hypertension (principal); E78.5 Hyperlipidemia, unspecified; I25.10 Atherosclerotic heart disease of native coronary artery without angina pectoris; E03.9 Hypothyroidism, unspecified; E11.65 Type 2 diabetes mellitus with hyperglycemia; M81.8 Other osteoporosis without current pathological fracture
CPT/HCPCS: 36415; 80048; 80061; 82043; 82306; 82570; 83036; 84439; 84443; 84450; 84460

== ENCOUNTER 2024-09-19 08:00 | Outpatient (AMB) | payer MEDICARE, SELFPAY ==
--- OUTSIDE RECORDS SUMMARY | 2024-09-19 08:04 | XMS_ITS ---
Author Organization [facility] Address [address] [place] [address] Care Team Providers Care Calculus Tutor Name Role Phone Teresita JEAN BAPTISTE, Allegra Quinn Primary Care Provider Un available Lisandra Rodríguez Unavailable [phone] REASON FOR VISIT formula 7 Encounters Encounter Location Date Provider Diagnosis [address] [address] 08/09/2024 Lisandra Rodríguez Plan Of Treatment Next Appt Details Provider Name:Lisandra sevilla, 10/27/2024 12:15:00 PM, [address] [place], [address], Progress Notes * RONCoyivetteDOB:1940 (83 yo F)Acc No.[id number]:08/09/2024 Patient:?Angelika RON :1940???Age:83 Y???Sex:Female Address:[address] [place] [address], [address] * true * Date:? Generated for Printi ricarda/Karoline/eTransmitting on:?09/19/2024 08:03 AM EST
--- OUTSIDE RECORDS SUMMARY | 2024-09-19 08:04 | XMS_ITS | Patient Health Record ---
Author Organization [facility] Address [address] [place] [address] Care Team Providers Care Application Manager Name Role Phone Teresita JEAN BAPTISTE, Allegra Quinn Primary Care Provider Un available Marcos Lisandra Unavailable [phone] AgapitoFabianaCalvin Unavailable [phone] Latoya Rodriguez Unavailable [phone] Allergies No Known Allergies Results Component Value [...] Status Risk Notes Problem Acquired hallux valgus (86416275) Hallux valgus (acquired), left foot (M20.12) Active confirmed Problem Type II diabetes mellitus without complication (950037420) Type 2 diabetes mellitus without complications (E11.9) Active confirmed Problem Acquired hammer toe of right foot (5550222119298644 ) Other hammer toe(s) (acquired), right foot (M20.41) Active confirmed Problem Acquired hammer toe of left foot (6415239507033872 ) Other hammer toe(s) (acquired), left foot (M20.42) Active confirmed Problem Polyneuropathy due to type 2 diabetes mellitus (902466232) Type 2 diabetes mellitus with diabetic polyneuropathy (E11.42) Active confirmed Problem Type 2 diabetes mellitus without complication (143118727) Type 2 diabetes mellitus without complication (E11.9) Active confirmed Vital Signs Blood pressure diastolic 60 mm Hg 08/09/2024 Height 5 ft 4.5 in in 08/09/2024 Blood pressure systolic 120 mm Hg 08/09/2024 Weight 185 lbs 08/09/2024 BMI 31.26 kg/m2 08/09/2024 Encounters Encounter Location Date Provider Diagnosis [address] [address] 01/24/2024 Calvin Altman Type 2 diabetes mellitus with diabetic polyneuropathy E11.42 ; Skin disease L98.9 ; Ingrowing nail L60.0 ; Tinea unguium B35.1 ; Localized edema R60.0 ; Hallux valgus (acquired), left foot M20.12 ; Other hammer toe(s) (acquired), left foot M20.42 and Other hammer toe(s) (acquired), right foot M20.[address] [address] 08/09/2024 Lisandra Rodríguez Tinea unguium B35.1 ; Other hammer toe(s) (acquired), right foot M20.41 ; Pain in right toe(s) M79.674 ; Pain in left toe(s) M79.675 ; Type 2 diabetes mellitus without complication E11.9 and Other hammer toe(s) (acquired), left foot M20.[address] [address] 05/18/2024 [facility] [address] [address] 08/03/2024 Lisandra Rodríguez [address] [address] 08/09/2024 Lisandra Rodríguez Assessments Encounter Date Diagnosis (ICD Code) Assessment Notes Treatment Notes Treatment Clinical Notes Section Notes 01/24/2024 Type 2 diabetes mellitus with diabetic polyneuropathy (ICD-10 - E11.42) 08/09/2024 Other hammer toe(s) (acquired), right foot (ICD-10 - M20.41) Patient Educated with: DIABETIC FOOT CARE INSTRUCTIONS. pdf (DIABETIC FOOT CARE INSTRUCTIONS. pdf) 08/09/2024 Tinea unguium (ICD-10 - B35.1) 08/09/2024 Pain in right toe(s) (ICD-10 - M79.674) 01/24/2024 Skin disease (ICD-10 - L98.9) 01/24/2024 Tinea unguium (ICD-10 - B35.1) 01/24/2024 Ingrowing nail (ICD-10 - L60.0) 08/09/2024 Pain in left toe(s) (ICD-10 - M79.675) 08/09/2024 Type 2 diabetes mellitus without complication (ICD-10 - E11.9) 01/24/2024 Localized edema (ICD-10 - R60.0) 08/09/2024 Other hammer toe(s) (acquired), left foot (ICD-10 - M20.42) 01/24/2024 Hallux valgus (acquired), left foot (ICD-10 - M20.12) 01/24/2024 Other hammer toe(s) (acquired), left foot (ICD-10 - M20.42) 01/24/2024 Other hammer toe(s) (acquired), right foot (ICD-10 - M20.41) Plan Of Treatment Pending Test Test Name Order Date Hemoglobin A1c 06/07/2015 X ray : Foot, right 3V 09/09/2023 31375-HRGZVSE NAIL, 6 OR MORE 06/07/2015 [id number]-[id number] NAIL, 6 OR MORE 09/13/2015 78948-Viaknxyo Plate 09/13/2015 31752-Nngagpwy Plate Each Additional 72035-Dptupqol Plate Each Additional Next Appt Details Provider Name:Lisandra sevilla, 10/27/2024 12:15:00 PM, [address] [facility], [place], [address], Insurance Providers Payer Name Payer Address Payer Phone Subscriber Number Group Number Insured Name Patient Relationship to Insured Coverage Start Date Coverage End Date [employer] [place] [employer]vantage [facility] [address] [place] [address] [id number] Angelika Mora Self - patient is the [...] cataract surgery 09/18/22 Hospitalization History Reason Date(Month/Year) [facility], overnight, hear t issues 05/19/2015
--- OUTSIDE RECORDS SUMMARY | 2024-09-19 08:04 | XMS_ITS ---
Author Organization [facility] Address [address] [place] [address] Care Team Providers Care Trade Sales Assistant Name Role Phone Teresita JEAN BAPTISTE, Allegra Quinn Primary Care Provider Un available Lisandra Rodríguez Unavailable [phone] Allergies No Known Allergies REASON FOR VISIT [...] Problem Type 2 diabetes mellitus without complication (866473770) Type 2 diabetes mellitus without complication (E11.9) Active confirmed Vital Signs Height 5 ft 4.5 in in 08/09/2024 Weight 185 lbs 08/09/2024 BMI 31.26 kg/m2 08/09/2024 Blood pressure systolic 120 mm Hg 08/09/19 25 Blood pressure diastolic 60 mm Hg 025 Encounters Encounter Location Date Provider Diagnosis [facility] [address] [place] [address] 08/09/2024 Lisandra Rodríguez Tinea unguium B35.1 ; [...] Reason: Provider Name:Lisandra sevilla, 10/27/2024 12:15:00 PM, [address] [place] [address], [address], Procedure Notes * Category Sub-Category Detail Notes [...] use of a nail nipper and/or dremel-type ice grinder, to a more viable healthy nail [...] to maintain effectiveness in symptomatic relief - 34266 Progress Notes * ORN CoyivetteDOB:1940 (83 yo F)Acc No.[id number]:08/09/2024 Progress Note Patient:?Angelika RON Provider:?Lisandra Rodríguez DPM :1940???Age:83 Y???Sex:Female D ate:08/09/2024 Address:[address] [place], [place] [id number] Pcp:Stefania Bojorquez Subjective: * Chief Complaints: * [...] cataract surgery 09/18/22 * Hospitalization/Major Diagno stic Procedure:?[facility], overnight, heart issues 05/19/2015 * Family [...] use of a nail nipper and/or dremel-type ice grinder, to a more viable healthy nail [...] to maintain effectiveness in symptomatic relief - 78505.? * Procedure Codes:?84339 DEBRI DE NAIL, 6 OR MORE * [...] Rodríguez DPM Date:? Generated for Avani chowdary/Karoline/Pauline on:?09/19/2024 08:03 AM EST History and Physical Notes * [...]
--- OUTSIDE RECORDS SUMMARY | 2024-09-19 08:04 | XMS_ITS ---
Author Organization [facility] Address [address] [place] [address] Care Team Providers Care Assurance Manager Insurance Name Role Phone Teresita JEAN BAPTISTE, Allegra Quinn Primary Care Provider Un available Lisandra Rodríguez Unavailable [phone] Encounters Encounter Location Date Provider Diagnosis [facility] [address] [place] [address] 08/04/2024 Lisandra Rodríguez Plan Of Treatment Next Appt Details Provider Name:Lisandra sevilla, 10/27/2024 12:15:00 PM, [address] [place], [address], Progress Notes * Angelika RONDOB:1940 (83 yo F)Acc No.[id number]:08/04/2024 Progress Note Patient:?Angelika RON Provider:?Lisandra Rodríguez DPM :1940???Age:83 Y???Sex:Female D ate:08/04/2024 Address:[address] [place], [place] [id number] Pcp:Stefania Bojorquez Subjective: * Chief Complaints: * [...]
[2024-09-19 08:10] VITALS: BP 138/72; RESP 16; TEMP 36.6; BMI 29.0
--- NOTE | 2024-09-19 08:10 | A.OFFPC_ITS ---
Vital Signs 09/19/24 08:10 Height 5 ft 5 in Weight 174 lb BMI 29.0 BP 138/72 Blood Pressure Location Rt brachial Position Sitting Respiration 16 Temp 97.8 F Temp Source Oral Intake Visit Reasons: 4m follow up Intake Note: Pt is here today for her 4mo. f/u labs Allergies cat dander [CAT DANDER] Allergy (Mild, Verified 09/19/24 08:27) ITCHY EYES cat's claw Allergy (Unknown, Verified 09/19/24 08:27) Unknown Medication List - Last Reconciled 09/19/24 by Allegra Lo MD apixaban (Eliquis) 5 mg PO Q12H atorvastatin 40 mg PO DAILY blood sugar diagnostic (FreeStyle Lite Strips) twice a day blood-glucose meter (FreeStyle Lite Meter kit) As directed cholecalciferol (vitamin D3) (Vitamin D3) 50 mcg PO DAILY Januvia (sitagliptin phosphate) 100 mg PO DAILY NS Jardiance (empagliflozin) 25 mg PO QAM NS lancets As directed twice a day levothyroxine 112 mcg PO DAILY lisinopril 10 mg PO DAILY metformin 1,000 mg PO BID metoprolol succinate ER 100 mg PO DAILY nifedipine ER 30 mg PO DAILY Tobacco use date assessed: 09/19/24 Fall risk assessment: 2 + Falls in past year Last assessed Fall Risk: 09/19/24 Dental Screening Dental Screen Date: 09/19/24 Did you have a dental visit in the last 12 months?: No Did you have a dental problem in the last 6 months where you did not have access to dental care?: No Was dental information given to patient?: Patient has dentist HPI 4m follow up HPI Details 83-year-old lady with diabetes mellitus, hyperlipidemia, hypertension, and hypothyroidism here today for follow-up. She stopped taking her Jardiance as it was giving her vaginal itching and states that it was too expensive. She also keeps forgetting to take it as she also takes thyroid medicine early in the morning. Diabetes mellitus not well controlled with hemoglobin A1c now at 8.6%. Fasting lipids are within normal limits except for elevated triglycerides. Recent labs also showed thyroid levels are within normal limits. She goes to [facility] for her routine eye exam, was seen last year and is due again this October. Copy of consult requested. She goes to [facility] for her diabetes foot care. Complains of a lump in her right lower abdomen area, which causes some discomfort especially when she walks. 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 History of primary hyperparathyroidism Diabetes mellitus with hyperglycemia, without long-term current use of insulin Hypothyroidism History of multinodular goiter Hypertrophic toenail Elevated bilirubin Vitamin D deficiency Ex-smoker CAD (coronary artery disease) Atherosclerotic heart disease Paroxysmal atrial fibrillation Hypertension Dyslipidemia B12 deficiency Osteoporosis Surgical History Hx of cataract History of parathyroidectomy H/O total thyroidectomy Stented coronary artery Hx of cholecystectomy Hx of hysterectomy Family History Father Sudden cardiac CVD (cardiovascular disease) Mother No problems noted. Sister Substance use disorder Social History Household Members Other:: 2 daughters Housing: House Alcohol intake: current Alcohol intake frequency: a few times a month Alcohol type: wine Patient Tobacco Use Status: Former Tobacco user Years Smoked: 30 years e-Cigarette/Vaping Use: Never Used Current occupational status: retired Cognitive needs: No Hearing needs: No Vision needs: Yes Questionnaire PHQ-9 Over the last 2 weeks, how often have you been bothered by any of the following problems? 1. Little interest or pleasure in doing things: not at all 2. Feeling down, depressed, or hopeless: not at all 3. Trouble falling or staying asleep, or sleeping too much: not at all 4. Feeling tired or having little energy: not at all 5. Poor appetite or overeating: several days 6. Feeling bad about yourself - or that you are a failure or have let yourself or your family down: several days 7. Trouble concentrating on things, such as reading the newspaper or watching television: not at all 8. Moving or speaking so slowly that other people could have noticed. Or the opposite - being so fidgety or restless that you have been moving around a lot more than usual: not at all 9. Thoughts that you would be better off or of hurting yourself in some way: not at all Total score: 2 Source: Developed by Drs. Alphonse Mckenna, Karen Patton, Riaz Faye and colleagues, with an educational molly from [employer]. Thrive Questionnaire Date Thrive assessed: 09/19/24 I am a: Patient What is your living situation today?: I have a steady place to live Within the past 12 months, did the food you bought not last and you didn't have the money to get more?: Never true Within the past 12 months, did you worry whether your food would run out before you got money to buy more?: Never true Do you have trouble paying for medicines?: No Do you have trouble getting transportation to medical appointments?: No Do you have trouble paying your heating and electricity bill?: No Do you have trouble taking care of your child, family member or friend?: No Do you have trouble with day-to-day activities such as bathing, preparing meals, shopping, managing finances, etc.?: No Are you currently unemployed and looking for a job?: No Are you interested in more education?: No Please select the resources that you would like help with: None Currently or been in a relationship where the following occur: No concerns reported THRIVE Score: 0 AUDIT C Alcohol Use Questionnaire (AUDIT-C) 1. How often do you have a drink containing alcohol?: 2-4 times a month 2. How many drinks containing alcohol do you have on a typical day when you are drinking?: 1 or 2 3. How often do you have six or more drinks on one occasion?: Never Total Score: 2 ELVIS-7 AMB Questionnaire ELVIS-7 Date ELVIS - 7 assessed: 09/19/24 Feeling nervous, anxious, or on edge: 0 = Not at all Not being able to stop or control worryin = Not at all Worrying too much about different things: 1 = Several days Trouble relaxin = Not at all Being so restless that it is hard to sit still: 0 = Not at all Becoming easily annoyed or irritable: 0 = Not at all Feeling afraid as if something awful might happen: 0 = Not at all Total ELVIS-7 score (0-4 normal; 5-9 mild; 10-14 moderate; 15-21 severe): 1 Source: Developed by Drs. Alphonse Mckenna, Karen Patton, Riaz Faye and colleagues, with an educational molly from [employer]. Review of Systems Const Denies weakness Eyes Details: Goes to [facility] for follow-up of her left dry AMD, and for diabetes retinopathy screening, has an appointment already scheduled this month ENT Denies dizziness, Denies post nasal drip and Denies sinus pain Card Denies chest pain, Denies chest pain with activity, Denies syncope, Denies rapid heart rate, Denies edema, Denies lightheadedness, Denies palpitations, Denies dyspnea and Denies dyspnea on exertion Resp Denies cough, Denies dyspnea and Denies dyspnea on exertion GI Denies hematochezia and Denies change in stool character Reports no additional complaints Musc Denies abnormal gait, Denies muscle cramps, Denies muscle weakness, Denies numbness, Denies radiating pain into limb and Denies tingling Skin/Breast Denies breast swelling, Denies breast pain and Denies breast mass Neuro Denies abnormal gait, Denies dizziness, Denies syncope, Denies numbness, Denies tingling and Denies weakness Psych Reports no additional complaints Endo Denies palpitations Alessandro/Lymph Denies easy bleeding and Denies easy bruising Aller/Immun Reports seasonal rhinorrhea Physical exam (Primary Care) Vital Signs: Last Vital Signs Temp 97.8 F 09/19/24 08:10 Resp 16 09/19/24 08:10 BP 138/72 09/19/24 08:10 BMI result Body Mass Index 29.0 Tobacco/Smoking Status: Tobacco use Status Tobacco use date assessed 09/19/24 09/19/24 08:12 Patient Tobacco Use Status Former Tobacco user 09/19/24 08:12 e-Cigarette/Vaping Use Never Used 09/19/24 08:12 PHQ-9: PHQ-9 Score PHQ-9: Total score 2 09/19/24 08:29 Thrive Assessment: Date of Thrive Assessment Date Thrive assessed 09/19/24 09/19/24 08:17 Currently or been in a relationship where the following occur: No concerns reported Const General: comfortable, no acute distress, alert and Physically active Nutritional Appearance: obese Orientation/consciousness: patient oriented x3 HENMT Head: Yes normocephalic Ears: external ears normal General nose exam: Normal external nose present and No nasal discharge present Face and sinus: Yes face symmetric Mouth: Normal oral and palatal mucosa present and moist mucous membranes Teeth and gingiva: dentures (Upper) Eyes General: appearance normal, both eyes and all related structures Neck Neck: Yes full ROM, Yes no lymphadenopathy and Yes supple Resp Auscultation: clear to auscultation bilaterally Cardio Other: S1-S2 present regular rate and rhythm, systolic murmur GI Other: Ill-defined mass palpated on right lower quadrant, more prominent when she stands and walks Palpation (GI): Soft to palpation, nontender, no guarding and no masses Auscultation: normal bowel sounds Back/Spine/Pelvis Back: No back tenderness Skin General skin exam: no rashes or lesions noted and no purpura Nails: yellow and thickened (Bilaterally) Neuro General: patient oriented x3 Extrem General: Yes full ROM, Yes no joint enlargement, Yes no pedal edema and Yes no calf tenderness Psych Appearance: grossly normal and well kempt Mental Status: mental status grossly normal Speech and movement: Normal speech and movement present Affect: normal affect Results Reviewed Results Reviewed: Laboratory Tests 09/14/24 Name: Angelika Mora Age/Sex: 83/F : 1940 Unit#: [id number] Attend Dr: Allegra Lo MD Re09/14/24 Status: DEP REF Location: [facility] Disch: SPEC : [id number] EDE: 09/14/24 STATUS: COMP REQ : [id number] RECD: 09/14/24-[address]: Allegra Lo MD COMP: 09/14/24-110 ENTERED: 09/14/24-[address]: ORDERED: Met Prof Fast, AST, ALT, Lipid Panel, Vitamin D 25-OH, Free T4, TSH Test Result Flag Reference Sodium 142 135-145 mmol/L Potassium 3.7 3.3-5.1 mmol/L CL 106 96-108 mmol/L CO2 25 22-29 mmol/L Gap 15 12-20 BUN 14 9-16 mg/dL Creat 0.70 0.5-1.4 mg/dL eGFR > 60 Chronic Kidney Disease: Estimated GFR < 60 mL/min/1.73m2 Severe Kidney Disease: Estimated GFR < 15 mL/min/1.73m2 FBS 212 H 60-99 mg/dL A fasting glucose of 126 mg/dl or greater on more than one occasion is considered diagnostic of diabetes. CA 9.3 8.4-10.2 mg/dL AST (GOT) 16 5-31 U/L ALT (GPT) 9 0-31 U/L Triglyceride 223 H <150 mg/dL Desirable Triglyceride: less than 150 mg/dL Borderline High Triglyceride 150-199 mg/dL High Triglyceride: 200-499 mg/dL Very High Triglyceride: greater than or equal to 5OO mg/dL Cholesterol 134 <200 mg/dL Desirable Cholesterol: less than 200 mg/dL Borderline High Cholesterol: 200-239 mg/dL High Cholesterol: greater than 239 mg/dL LDL Calculated 48 <100 mg/dL Desirable LDL: less than 100 mg/dL Near Optimal/Above Optimal LDL: 110-129 mg/dL Borderline High LDL: 130-159 mg/dL High LDL: 160-189 mg/dL Very High LDL: greater than or equal to 190 mg/dL HDL 42 >40 mg/dL Desirable HDL: greater than 40 mg/dL Note: This HDL assay may give artificially low results in patients with liver disease. Vit D 25-OH Tot 35.8 >30 ng/mL Health Based Reference Values* < 20 ng/mL Deficient 20-30 ng/mL Insufficient > 30 ng/mL Sufficient *Nicholas HAN. N Engl J Med. 2007;357:266-280 Care must be taken in interpreting Vitamin D results from different laboratories and methodologies. Published data demonstrated that results from patients undergoing hemodialysis may show a negative bias when tested with various automated 25-OH vitamin D assays when compared to LC-MS/MS. When testing samples from patients whose predominant form of Vitamin D is Vitamin D2, such as patients receiving Vitamin D2 supplementation, results that are subtherapeutic should be confirmed with another method such as LC-MS/MS. Free T4 1.28 0.71-1.85 ng/dL TSH 3rd Gen. 0.68 0.32-4.0 uIU/mL 08:15 Hemoglobin A1c % 8.3 H Urine Creatinine 172.51 Urine Microalbumin 72.0 Microalb/Creat Ratio 41.7 H Coding Level of Care Code Est Pt Level 4 (62131) Complex EM visit Add On G2211 Diagnoses Right lower quadrant abdominal mass R19.03 Diabetes mellitus with hyperglycemia, without long-term current use of insulin E11.65 Dyslipidemia E78.5 Essential hypertension I10 Hypertension type: essential hypertension Acquired hypothyroidism E03.9 Hypothyroidism type: acquired Assessment & Plan Assessment & Plan (1) Right lower quadrant abdominal mass: Code(s): R19.03 - Right lower quadrant abdominal swelling, mass and lump Plan: Ultrasound limited of abdomen ordered to evaluate for possible hernia (2) Diabetes mellitus with hyperglycemia, without long-term current use of insulin: Code(s): E11.65 - Type 2 diabetes mellitus with hyperglycemia Category: Medical Plan: Diabetes mellitus control poor with a hemoglobin A1c at 8 . 3%. Jardiance discontinued by patient due to vaginal itching and discharge. Continue with metformin 1000 mg 1 tablet twice a day and Januvia 100 mg daily and added Ozempic 0.25 mg injected once a week subcutaneously. Discussed possible side effects of medication, advised to have a bland diet on the day that she gives herself her injection will have her see nurse navigator for instruction on how to use the pen. Will see her back for follow-up in November 2024 after fasting labs done (3) Dyslipidemia: Code(s): E78.5 - Hyperlipidemia, unspecified Category: Medical Plan: Reviewed recent fasting lipid profile with patient with levels within normal limits except for elevated triglycerides . Continue atorvastatin 40 mg daily , in addition to adherence to low-cholesterol diet and regular exercise, at least 30 minutes 3 to 4 times a week. Advised patient to make healthy food choices, eat more fruits, vegetables, whole grains, wild caught fish and low- fat dairy. Limit amount of meat and fried or fatty food products, as well as processed foods and fast foods. Follow-up scheduled with repeat fasting lipid panel in 2 months. (4) Hypertension: Code(s): I10 - Essential (primary) hypertension Category: Medical Qualifiers: Hypertension type: essential hypertension Qualified Code(s): I10 - Essential (primary) hypertension Plan: Blood pressure at goal of less than 130/80. Continue with lisinopril 10 mg daily and metoprolol succinate ER 100 mg once a day as was nifedipine ER 30 mg daily Reinforced importance of following a low sodium diet, getting regular exercise, and lowering stress levels. (5) Hypothyroidism: Code(s): E03.9 - Hypothyroidism, unspecified Category: Medical Qualifiers: Hypothyroidism type: acquired Qualified Code(s): E03.9 - Hypothyroidism, unspecified Plan: Thyroid levels are within normal limits, continued on current dose of levothyroxine 112 mcg daily in a.m. recheck levels again in November Orders: Orders US abdomen limited Today R19.03 - Right lower quadrant abdominal swelling, mass and lump Hemoglobin A1c 11/25/24 E03.9 - Hypothyroidism, unspecified, E11.65 - Type 2 diabetes mellitus with hyperglycemia, E78.5 - Hyperlipidemia, unspecified, I10 - Essential (primary) hypertension Basic Metabolic Panel Fasting 11/25/24 E03.9 - Hypothyroidism, unspecified, E11.65 - Type 2 diabetes mellitus with hyperglycemia, E78.5 - Hyperlipidemia, unspecified, I10 - Essential (primary) hypertension Lipid Panel 11/25/24 E03.9 - Hypothyroidism, unspecified, E11.65 - Type 2 diabetes mellitus with hyperglycemia, E78.5 - Hyperlipidemia, unspecified, I10 - Essential (primary) hypertension Alanine Aminotransferase 11/25/24 E03.9 - Hypothyroidism, unspecified, E11.65 - Type 2 diabetes mellitus with hyperglycemia, E78.5 - Hyperlipidemia, unspecified, I10 - Essential (primary) hypertension Aspartate Amino Transferase 11/25/24 E03.9 - Hypothyroidism, unspecified, E11.65 - Type 2 diabetes mellitus with hyperglycemia, E78.5 - Hyperlipidemia, unspecified, I10 - Essential (primary) hypertension Thyroid Stimulating Hormone 11/25/24 E03.9 - Hypothyroidism, unspecified, E11.6 5 - Type 2 diabetes mellitus with hyperglycemia, E78.5 - Hyperlipidemia, unspecified, I10 - Essential (primary) hypertension Free T4 (Free Thyroxine) 11/25/24 E03.9 - Hypothyroidism, unspecified, E11.65 - Type 2 diabetes mellitus with hyperglycemia, E78.5 - Hyperlipidemia, unspecified, I10 - Essential (primary) hypertension Medications: New Ozempic (semaglutide) for 4 weeks 0.25 mg (0.368 mL) subcut QWEEK 3 mL 3RF NS E11.65 - Type 2 diabetes mellitus with hyperglycemia
== END 2024-09-19 08:51 | disposition home or self-care (01) ==
PROVIDERS: PCP Internal Medicine; Visit Provider Internal Medicine
DX: R19.03 Right lower quadrant abdominal swelling, mass and lump (principal); E11.65 Type 2 diabetes mellitus with hyperglycemia; E78.5 Hyperlipidemia, unspecified; I10 Essential (primary) hypertension; E03.9 Hypothyroidism, unspecified

== ENCOUNTER → 2024-09-19 08:00 | Outpatient (BNVA) | payer MEDICARE, SELFPAY | PROVIDERS: PCP Internal Medicine; Visit Provider Internal Medicine | DX: R19.03 Right lower quadrant abdominal swelling, mass and lump (principal); E11.65 Type 2 diabetes mellitus with hyperglycemia; E78.5 Hyperlipidemia, unspecified; E03.9 Hypothyroidism, unspecified; I10 Essential (primary) hypertension | CPT/HCPCS: 99212 ==

== ENCOUNTER → 2024-11-10 08:19 | Outpatient (BNVA) | payer MEDICARE, SELFPAY | PROVIDERS: PCP Internal Medicine ==

== ENCOUNTER 2024-12-14 14:20 | Outpatient (REF) | payer MEDICARE, SELFPAY ==
--- NOTE | ~2024-12-14 | US_ITS ---
EXAMINATION: US PELVIS LIMITED HISTORY: R19.03 - Right lower quadrant abdominal swelling, mass and lump COMPARISON: There are no prior studies available for comparison. TECHNIQUE: Sonographic examination of the anterior abdominal wall of the right lower quadrant was performed. FINDINGS: No mass or fluid collection is identified. US/US pelvic limited IMPRESSION: No sonographic abnormality is seen in the right lower quadrant anterior abdominal wall. Electronically signed by: Alphonse Luna MD 12/14/2024 03:49 PM EDT
--- OUTSIDE RECORDS SUMMARY | 2024-12-14 14:28 | XMS_ITS | Patient Health Record ---
Author Organization [facility] Address [address] [place] [address] Care Team Providers Care Rip And Groove Machine Operator Name Role Phone Teresita JEAN BAPTISTE, Allegra Quinn Primary Care Provider Un available Lisandra Rodríguez Unavailable [phone] Agapito Calvin Unavailable [phone] Latoya Rodriguez Unavailable [phone] Allergies No Known Allergies Results Component Value Reference Range Notes HEMOGLOBIN A1C (GLYCOHEMOGLO BIN) Reviewed date:08/09/2024 09:10:42 AM Interpretation: Performing Lab: Notes/Report: HEMOGLOBIN A1C % (HH) 7.4 HEMOGLOBIN A1C (GLYCOHEMOGLO BIN) Reviewed date:01/24/2024 09:14:13 AM Interpretation: Performing Lab: Notes/Report: HEMOGLOBIN A1C (HH) 7.3 Reason For Referral No Information Medications Medication SIG (Take, Route, Frequency, Duration) Notes Start Date End Date Status Calcium Active zzzExtra Depth Orthopedic Shoes (1 Pair) with Customized Heat Molded Multidensity Innersoles (3 Pair) . . . Dx: NIDDM (E11.9), Hammertoe Foot Deformity (M20.41,M20.42), Preulcerative Skin Lesion(s) (L85.1) for . 06/07/2015 Not-Taki ng Eliquis 5 MG 1 tablet Orally Twic e a day for 30 day(s) Active Atenolol Not-Taking Levothyroxine Sodium Active Clopidogrel Bisulfate Not-Taking Lisinopril 10 MG 1 tablet Orally Once a day Active Aspirin Not-Taking metFORMIN HCl 1000 MG 1 tablet with a me al Orally Once a day for 30 day(s) Active Metoprolol Succinate 100 MG 1 capsule Orally Once a day for 30 day(s) Active NIFEdipine Active PreserVision AREDS - as directed Orally Active Jardiance Active Vitamin D3 50 MCG (2000 UT) 1 capsule Orally Once a day for 30 day(s) Active januvia Active glipiZIDE XL 5 MG 1 tablet with breakf ast Orally Once a day Not-Taking Atorvastatin Calcium 40 MG 1 tablet Orally Once a day Active Vitamin B12 1000 MCG 1 tablet Orally Onc e a day for 30 day(s) Not-Taking Immunizations Vaccine Route Administration Date Status [...] Status Risk Notes Problem Acquired hallux valgus (06834558) Hallux valgus (acquired), left foot (M20.12) Active confirmed Problem Type II diabetes mellitus without complication (301164264) Type 2 diabetes mellitus without complications (E11.9) Active confirmed Problem Acquired hammer toe of right foot (3080543014640283 ) Other hammer toe(s) (acquired), right foot (M20.41) Active confirmed Problem Acquired hammer toe of left foot (9184964304681202 ) Other hammer toe(s) (acquired), left foot (M20.42) Active confirmed Problem Polyneuropathy due to type 2 diabetes mellitus (527514410) Type 2 diabetes mellitus with diabetic polyneuropathy (E11.42) Active confirmed Problem Type II diabetes mellitus without complication (648911647) Type 2 diabetes mellitus without complication (E11.9) Active confirmed Vital Signs Blood pressure diastolic 60 mm Hg 08/09/2024 Height 5 ft 4.5 in in 08/09/2024 Blood pressure systolic 120 mm Hg 08/09/2024 Weight 185 lbs 08/09/2024 BMI 31.26 kg/m2 08/09/2024 Encounters Encounter Location Date Provider Diagnosis [address] [address] 01/24/2024 Calvin Altman Type 2 diabetes mellitus with diabetic polyneuropathy E11.42 ; Skin disease L98.9 ; Ingrowing nail L60.0 ; Tinea unguium B35.1 ; Localized edema R60.0 ; Hallux valgus (acquired), left foot M20.12 ; Other hammer toe(s) (acquired), left foot M20.42 and Other hammer toe(s) (acquired), right foot M20.[address] [address] 08/09/2024 Lisandra Rodríguez Tinea unguium B35.1 ; Other hammer toe(s) (acquired), right foot M20.41 ; Pain in right toe(s) M79.674 ; Pain in left toe(s) M79.675 ; Type 2 diabetes mellitus without complication E11.9 and Other hammer toe(s) (acquired), left foot M20.[address] [address] 05/18/2024 Latoya Rodriguez [facility] [address] [address] 08/03/2024 Lisandra Rodríguez [address] [address] 08/09/2024 Lisandra Rodríguez [address] [address] 11/16/2024 Lisandra Rodríguez Assessments Encounter Date Diagnosis (ICD [...] X ray : Foot, right 3V 09/09/2023 20088-[id number] NAIL, 6 OR MORE 06/07/2015 29629-YRMQCCF NAIL, 6 OR MORE 09/13/2015 80814-Fupquxjt Plate 09/13/2015 24865-Atqgqxcv Plate Each Additional 04715-Sqzvxtki Plate Each Additional Next Appt Details Provider Name:Lisandra sevilla, 01/16/2025 11:00:00 AM, [address] [place], [address], Insurance Providers Payer Name Payer Address Payer Phone Subscriber Number Group Number Insured Name Patient Relationship to Insured Coverage Start Date Coverage End Date [employer] [place] Medicare Advantage [address] [place] [id number] Angelika Mora Self - patient is the [...] cataract surgery 09/18/22 Hospitalization History Reason Date(Month/Year) [facility], overnight, hear t issues 05/19/2015
== END 2024-12-14 14:21 | disposition home or self-care (01) ==
LOC: HO.HMGCX 14:20
PROVIDERS: PCP Internal Medicine; Visit Provider Internal Medicine
DX: R19.03 Right lower quadrant abdominal swelling, mass and lump (principal)
CPT/HCPCS: 76857

== ENCOUNTER → 2024-12-14 14:23 | Outpatient (BNV) | payer MEDICARE, SELFPAY | PROVIDERS: PCP Internal Medicine; Visit Provider Radiology Diagnostic Radiology | DX: R19.03 Right lower quadrant abdominal swelling, mass and lump (principal) | CPT/HCPCS: 76857 ==

== ENCOUNTER 2025-02-02 07:18 | Outpatient (REF) | payer MEDICARE, SELFPAY ==
--- OUTSIDE RECORDS SUMMARY | 2025-02-02 07:20 | XMS_ITS | Patient Health Record ---
Author Organization [facility] Address [address] [place] [address] Care Team Providers Care Naval Designer Name Role Phone Teresita JEAN BAPTISTE, Allegra Quinn Primary Care Provider Un available Lisandra Rodríguez Unavailable [phone] Altman Calvin Unavailable [phone] Latoya Rodriguez Unavailable [phone] Allergies No Known Allergies Results Component Value Reference Range Notes HEMOGLOBIN A1C (GLYCOHEMOGLO BIN) Reviewed date:08/09/2024 09:10:42 AM Interpretation: Performing Lab: Notes/Report: HEMOGLOBIN A1C % (HH) 7.4 Reason For Referral No Information Medications Medication SIG (Take, Route, Frequency, Duration) Notes Start Date End Date Status Eliquis 5 MG 1 tablet Orally Twic e a day; Duration: 30 day(s) Active zzzExtra Depth Orthopedic Shoes (1 Pair) with Customized Heat Molded Multidensity Innersoles (3 Pair) . . . Dx: NIDDM (E11.9), Hammertoe Foot Deformity (M20.41,M20.42), Preulcerative Skin Lesion(s) (L85.1); Duration: . 06/07/2015 Not-Taking Calcium Active Vitamin B12 1000 MCG 1 tablet Orally Onc e a day; Duration: 30 day(s) Not-Kevin ing Clopidogrel Bisulfate Not-Taking Levothyroxine Sodium Active Atenolol Not-Taking Aspirin Not-Taking metFORMIN HCl 1000 MG 1 tablet with a me al Orally Once a day; Duration: 30 day(s) Active Lisinopril 10 MG 1 tablet Orally Once a day Active NIFEdipine Active Metoprolol Succinate 100 MG 1 capsule Orally Once a day; Duration: 30 day(s) Active Jardiance Active Vitamin D3 50 MCG (1999 UT) 1 capsule Orally Once a day; Duration: 30 day(s) Active PreserVision AREDS - as directed Orally Active Atorvastatin Calcium 40 MG 1 tablet Orally Once a day Active glipiZIDE XL 5 MG 1 tablet with breakf ast Orally Once a day Not-Taking januvia Active Ozempic (0.25 or 0.5 MG/DOSE) 2 MG/3ML Subcutaneous; Duration: 28 Days Active Immunizations Vaccine Route Administration Date Status Comme nts Influenza Unknown 01/24/2024 Refused COVID-19 Pfizer BioNTech Vaccine Unknown 06/03/2021 Administered 1st 08/28/20 2nd 09/18/20 Social History Tobacco Use: Social History Observation [...] Status Risk Notes Problem Acquired hallux valgus (70758755) Hallux valgus (acquired), left foot (M20.12) Active confirmed Problem Acquired hammer toe of right foot (217342757619 9105) Other hammer toe(s) (acquired), right foot (M20.41) Active confirmed Problem Acquired hammer toe of left foot (844884876435 9103) Other hammer toe(s) (acquired), left foot (M20.42) Active confirmed Problem Type 2 diabetes mellitus without complication (E11.9) Active confirmed Vital Signs Blood pressure diastolic 60 mm Hg 01/16/2025 Height 5 ft 4.5 in in 01/16/2025 Blood pressure systolic 120 mm Hg 01/16/2025 Weight 178 lbs 01/16/2025 BMI 30.08 kg/m2 01/16/2025 Encounters Encounter Location Date Provider Diagnosis [facility] [address] [place] [address] 08/09/2024 Lisandra Rodríguez Tinea unguium B35.1 ; Other hammer toe(s) (acquired), right foot M20.41 ; Pain in right toe(s) M79.674 ; Pain in left toe(s) M79.675 ; Type 2 diabetes mellitus without complication E11.9 and Other hammer toe(s) (acquired), left foot M20.42 [facility] [address] [address] 01/16/2025 Lisandra Rodríguez Tinea unguium B35.1 ; Pain in right toe(s) M79.674 ; Pain in left toe(s) M79.675 and Type 2 diabetes mellitus without complication E11.[address] [facility] [address] 05/18/2024 [facility] [address] [address] 08/03/2024 [facility] [address] 08/09/2024 [facility] [address] 11/16/2024 Lisandra Rodríguez Assessments Encounter Date Diagnosis (ICD Code) Assessment Notes Treatment Notes Treatment Clinical Notes Section Notes 08/09/2024 Other hammer toe(s) (acquired), right foot (ICD-10 - M20.41) Patient Educated with: DIABETIC FOOT CARE INSTRUCTIONS.p df (DIABETIC FOOT CARE INSTRUCTIONS.p df) 08/09/2024 Tinea unguium (ICD-10 - B35.1) 01/16/2025 Tinea unguium (ICD-10 - B35.1) 01/16/2025 Pain in right toe(s) (ICD-10 - M79.674) 01/16/2025 Pain in left toe(s) (ICD-10 - M79.675) 08/09/2024 Pain in right toe(s) (ICD-10 - M79.674) 08/09/2024 Pain in left toe(s) (ICD-10 - M79.675) 01/16/2025 Type 2 diabetes mellitus without complication (ICD-10 - E11.9) 08/09/2024 Type 2 diabetes mellitus without complication (ICD-10 - E11.9) 08/09/2024 Other hammer toe(s) (acquired), left foot (ICD-10 - M20.42) Plan Of Treatment Pending Test Test Name Order Date Hemoglobin A1c 06/07/2015 X ray : Foot, right 3V 09/09/2023 39555-[id number] NAIL, 6 OR MORE 06/07/2015 14236-TXGVFIY NAIL, 6 OR MORE 09/13/2015 09404-Bgwlhipr Plate 09/13/2015 19933-Bygguvqg Plate Each Additional 64949-Talohdss Plate Each Additional Next Appt Details Provider Name:Lisandra sevilla, 04/18/2025 11:15:00 AM, [address] [place], [address], Insurance Providers Payer Name Payer Address Payer Phone Subscriber Number Group Number Insured Name Patient Relationship to Insured Coverage Start Date Coverage End Date [employer] [place] Medicare Advantage [address] [place] [address] [phone] [id number] Angelika Mora Self - patient is the [...] cataract surgery 09/18/22 Hospitalization History Reason Date(Month/Year) [facility], overnight, hear t issues 05/19/2015
[2025-02-02 10:33] LABS: Hemoglobin A1C 187.5626 umol/L; Total Hemoglobin (HGBA1C) 3475.2168 umol/L
[2025-02-02 11:02] LABS: Alanine Aminotransferase 16 U/L (0-31); Anion Gap 14 (12-20); Aspartate Amino Transferase 20 U/L (5-31); Blood Urea Nitrogen 14 mg/dL (9-16); Calcium 8.8 mg/dL (8.4-10.2); Carbon Dioxide 24 mmol/L (22-29); Chloride 109 mmol/L (96-108); Cholesterol 117 mg/dL (<200); Estimated Glomerular Filt Rate > 60; HDL Cholesterol 36 mg/dL (>40); Potassium 4.1 mmol/L (3.3-5.1); Sodium 143 mmol/L (135-145); Triglycerides 173 mg/dL (<150)
[2025-02-02 11:05] LABS: Free T4 (Free Thyroxine) 1.27 ng/dL (0.71-1.85); Thyroid Stimulating Hormone 0.26 uIU/mL (0.32-4.0)
== END 2025-02-02 07:19 | disposition home or self-care (01) ==
LOC: HO.HMGCLDS 07:18
PROVIDERS: PCP Internal Medicine; Visit Provider Internal Medicine
DX: E11.65 Type 2 diabetes mellitus with hyperglycemia (principal); I10 Essential (primary) hypertension; E78.5 Hyperlipidemia, unspecified; E03.9 Hypothyroidism, unspecified
CPT/HCPCS: 36415; 80048; 80061; 83036; 84439; 84443; 84450; 84460

== ENCOUNTER 2025-02-15 08:00 | Outpatient (AMB) | payer MEDICARE, SELFPAY ==
--- OUTSIDE RECORDS SUMMARY | 2025-02-15 08:04 | XMS_ITS | Patient Health Record ---
Author Organization [facility] Address [address] [place] [address] Care Team Providers Care Rock Mason Apprentice Name Role Phone Teresita JEAN BAPTISTE, Allegra Quinn Primary Care Provider Un available Lisandra Rodríguez Unavailable [phone] Altman Calvin Unavailable [phone] Latoya Rodriguez Unavailable [phone] Allergies No Known Allergies Results Component Value [...] Status Risk Notes Problem Acquired hallux valgus (47055389) Hallux valgus (acquired), left foot (M20.12) Active confirmed Problem Acquired hammer toe of right foot (564419579295 9105) Other hammer toe(s) (acquired), right foot (M20.41) Active confirmed Problem Acquired hammer toe of left foot (105961998082 9103) Other hammer toe(s) (acquired), left foot (M20.42) Active confirmed Problem Type 2 diabetes mellitus without complication (E11.9) Active confirmed Vital Signs Blood pressure diastolic 60 mm Hg 01/16/2025 Height 5 ft 4.5 in in 01/16/2025 Blood pressure systolic 120 mm Hg 01/16/2025 Weight 178 lbs 01/16/2025 BMI 30.08 kg/m2 01/16/2025 Encounters Encounter Location Date Provider Diagnosis [facility] [address] [place] [address] 08/09/2024 Lisandra Rodríguez Tinea unguium B35.1 ; Other hammer toe(s) (acquired), right foot M20.41 ; Pain in right toe(s) M79.674 ; Pain in left toe(s) M79.675 ; Type 2 diabetes mellitus without complication E11.9 and Other hammer toe(s) (acquired), left foot M20.42 [facility] [address] [address] 01/16/2025 Lisandra Rodríguez Tinea unguium B35.1 ; Pain in right toe(s) M79.674 ; Pain in left toe(s) M79.675 and Type 2 diabetes mellitus without complication E11.[address] [facility] [address] 05/18/2024 [facility] [address] [address] 08/03/2024 [facility] [address] 08/09/2024 [facility] [address] 11/16/2024 Lisandra Rodríguez Assessments Encounter Date Diagnosis [...] X ray : Foot, right 3V 09/09/2023 94836-XMNLZKZ NAIL, 6 OR MORE 06/07/2015 26239-LPJHXFG NAIL, 6 OR MORE 09/13/2015 54660-Obbmfymx Plate 09/13/2015 97785-Xrmbwbfv Plate Each Additional 78794-Bqmydncf Plate Each Additional Next Appt Details Provider Name:Lisandra sevilla, 04/18/2025 11:15:00 AM, [address] [place], [address], Insurance Providers Payer Name Payer Address Payer Phone Subscriber Number Group Number Insured Name Patient Relationship to Insured Coverage Start Date Coverage End Date [employer] [place] Medicare Advantage [address] [place] [address] [phone] [id number] Angelika Mora Self - patient is the [...] cataract surgery 09/18/22 Hospitalization History Reason Date(Month/Year) [facility], overnight, hear t issues 05/19/2015
[2025-02-15 08:09] VITALS: BP 128/80; PULSE 76; RESP 18; TEMP 36.6; O2SAT 96; BMI 27.8
--- NOTE | 2025-02-15 08:09 | A.OFFPC_ITS ---
Vital Signs 02/15/25 08:09 Height 5 ft 5 in Weight 167 lb BMI 27.8 BP 128/80 Blood Pressure Location Lt brachial Position Sitting Respiration 18 Pulse 76 Pulse Source Pulse Oximeter Temp 97.9 F Temp Source Oral Pulse Oximetry (%) 96 Oxygen Delivery Method Room Air Intake Visit Reasons: PE - see comments Intake Note: Pt is here today for PE. Allergies cat dander (CAT DANDER) Allergy (Mild, Verified 02/15/25 08:21) ITCHY EYES cat's claw Allergy (Unknown, Verified 02/15/25 08:21) Unknown Medication List - Last Reconciled 02/15/25 by Allegra Lo MD apixaban (Eliquis) 5 mg PO Q12H atorvastatin 40 mg PO DAILY blood sugar diagnostic (FreeStyle Lite Strips) twice a day blood-glucose meter (FreeStyle Lite Meter kit) As directed cholecalciferol (vitamin D3) (Vitamin D3) 50 mcg PO DAILY lancets As directed twice a day levothyroxine 112 mcg PO DAILY lisinopril 10 mg PO DAILY metformin 1,000 mg PO BID metoprolol succinate ER 100 mg PO DAILY nifedipine ER 30 mg PO DAILY Ozempic (semaglutide) 0.5 mg (0.736 mL) subcut QWEEK 30 days NS Tobacco use date assessed: 02/15/25 Fall risk assessment: No Falls in past year Last assessed Fall Risk: 02/15/25 Dental Screening Dental Screen Date: 02/15/25 Did you have a dental visit in the last 12 months?: Yes Did you have a dental problem in the last 6 months where you did not have access to dental care?: No Was dental information given to patient?: Patient has dentist HPI PE - see comments HPI Details - The patient is an 84-year-old female p resenting today for her follow- up - Type 2 Diabetes Mellitus: The patient' s blood glucose levels have improved with the use of Ozempic in addition to metformin, with a reduction in A1c from 8 to 7 .1% - The patient reports no adverse effects from Ozempic and has experienced weight loss from 174 to 167 pounds over four months. - Hypertension: Blood pressure has impro valerie, currently on lisinopril 10 mg daily, nifedipine ER 30 mg daily, metoprolol 100 mg once a day - Hyperlipidemia: The patient's triglyce rides have decreased from over 200 to 173 mg/dL, and LDL cholesterol is maintained below 100 mg/dL. - The patient is advised to engage in regular exercise to improve HDL cholesterol levels. 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 History of primary hyperparathyroidism Diabetes mellitus with hyperglycemia, without long-term current use of insulin Hypothyroidism History of multinodular goiter Hypertrophic toenail Vitamin D deficiency Ex-smoker CAD (coronary artery disease) Atherosclerotic heart disease Paroxysmal atrial fibrillation Hypertension Dyslipidemia B12 deficiency Osteoporosis Surgical History Hx of cataract History of parathyroidectomy H/O total thyroidectomy Stented coronary artery Hx of cholecystectomy Hx of hysterectomy Family History Father Sudden cardiac CVD (cardiovascular disease) Mother No problems noted. Sister Substance use disorder Social History Household Members Other:: 2 daughters Housing: House Alcohol intake: current Alcohol intake frequency: a few times a month Alcohol type: wine Patient Tobacco Use Status: Former Tobacco user Years Smoked: 30 years e-Cigarette/Vaping Use: Never Used service: No Current occupational status: retired Cognitive needs: No Hearing needs: No Vision needs: Yes Questionnaire Thrive Questionnaire Date Thrive assessed: 09/19/24 I am a: Patient What is your living situation today?: I have a steady place to live Within the past 12 months, did the food you bought not last and you didn't have the money to get more?: Never true Within the past 12 months, did you worry whether your food would run out before you got money to buy more?: Never true Do you have trouble paying for medicines?: No Do you have trouble getting transportation to medical appointments?: No Do you have trouble paying your heating and electricity bill?: No Do you have trouble taking care of your child, family member or friend?: No Do you have trouble with day-to-day activities such as bathing, preparing meals, shopping, managing finances, etc.?: No Are you currently unemployed and looking for a job?: No Are you interested in more education?: No Please select the resources that you would like help with: None Currently or been in a relationship where the following occur: No concerns reported THRIVE Score: 0 AUDIT C Alcohol Use Questionnaire (AUDIT-C) 1. How often do you have a drink containing alcohol?: 2-4 times a month 2. How many drinks containing alcohol do you have on a typical day when you are drinking?: 1 or 2 3. How often do you have six or more drinks on one occasion?: Never Total Score: 2 ELVIS-7 AMB Questionnaire ELVIS-7 Date ELVIS - 7 assessed: 09/19/24 Source: Developed by Drs. Alphonse Mckenna, Karen Patton, Riaz Faye and colleagues, with an educational molly from [employer]. Review of Systems Const Denies weakness Eyes Details: Goes to [facility] for follow-up of her left dry AMD, and for diabetes retinopathy screening ENT Denies dizziness, Denies post nasal drip and Denies sinus pain Card Denies chest pain, Denies chest pain with activity, Denies syncope, Denies rapid heart rate, Denies edema, Denies lightheadedness, Denies palpitations, Denies dyspnea and Denies dyspnea on exertion Resp Denies cough, Denies dyspnea and Denies dyspnea on exertion GI Denies hematochezia and Denies change in stool character Reports no additional complaints Musc Denies abnormal gait, Denies muscle cramps, Denies muscle weakness, Denies numbness, Denies radiating pain into limb and Denies tingling Skin/Breast Denies breast swelling, Denies breast pain and Denies breast mass Neuro Denies abnormal gait, Denies dizziness, Denies syncope, Denies numbness, Denies tingling and Denies weakness Psych Reports no additional complaints Endo Denies palpitations Alessandro/Lymph Denies easy bleeding and Denies easy bruising Aller/Immun Reports seasonal rhinorrhea Physical exam (Primary Care) Vital Signs: Last Vital Signs Temp 97.9 F 02/15/25 08:09 Pulse 76 02/15/25 08:09 Resp 18 02/15/25 08:09 BP 128/80 02/15/25 08:09 Pulse Ox 96 02/15/25 08:09 Oxygen Delivery Method Room Air 02/15/25 08:09 BMI result Body Mass Index 27.8 Tobacco/Smoking Status: Tobacco use Status Tobacco use date assessed 02/15/25 02/15/25 08:13 Patient Tobacco Use Status Former Tobacco user 02/15/25 08:13 e-Cigarette/Vaping Use Never Used 02/15/25 08:13 Thrive Assessment: Date of Thrive Assessment Date Thrive assessed 09/19/24 02/15/25 08:13 Currently or been in a relationship where the following occur: No concerns reported Const General: comfortable, no acute distress, alert and Physically active Nutritional Appearance: obese Orientation/consciousness: patient oriented x3 HENMT Head: Yes normocephalic Ears: external ears normal General nose exam: Normal external nose present and No nasal discharge present Face and sinus: Yes face symmetric Mouth: Normal oral and palatal mucosa present and moist mucous membranes Teeth and gingiva: dentures (Upper) Eyes General: appearance normal, both eyes and all related structures Neck Neck: Yes full ROM, Yes no lymphadenopathy and Yes supple Resp Auscultation: clear to auscultation bilaterally Cardio Other: S1-S2 present regular rate and rhythm, systolic murmur GI Palpation (GI): Soft to palpation, nontender, no guarding and no masses Auscultation: normal bowel sounds Back/Spine/Pelvis Back: No back tenderness Skin General skin exam: no rashes or lesions noted and no purpura Nails: yellow and thickened (Bilaterally) Neuro General: patient oriented x3 Extrem General: Yes full ROM, Yes no joint enlargement, Yes no pedal edema and Yes no calf tenderness Psych Appearance: grossly normal and well kempt Mental Status: mental status grossly normal Speech and movement: Normal speech and movement present Affect: normal affect Results Reviewed Results Reviewed: Laboratory Tests 02/02/25 07:22 Estimat Average Glucose 157 Hemoglobin A1c % 7.1 H Name: Angelika Mora Age/Sex: 84/F : 1940 Unit#: [id number] Attend Dr: Allegra Lo MD Re02/02/25 Status: DEP REF Location: [facility] Disch: SPEC : [id number] EDE: 02/02/25 STATUS: COMP REQ : [id number] RECD: 02/02/25-[address]: Allegra Lo MD COMP: 02/02/25 ENTERED: 02/02/25 [facility]: ORDERED: Met Prof Fast, AST, ALT, Lipid Panel, Free T4, TSH Test Result Flag Reference Sodium 143 135-145 mmol/L Potassium 4.1 3.3-5.1 mmol/L CL 109 H 96-108 mmol/L CO2 24 22-29 mmol/L Gap 14 12-20 BUN 14 9-16 mg/dL Creat 0.66 0.5-1.4 mg/dL eGFR > 60 Chronic Kidney Disease: Estimated GFR < 60 mL/min/1.73m2 Severe Kidney Disease: Estimated GFR < 15 mL/m in/1.73m2 FBS 190 H 60-99 mg/dL A fasting glucose of 126 mg/dl or greater on more than one occasion is considered diagnostic of diabetes. CA 8.8 8.4-10.2 mg/dL AST (GOT) 20 5-31 U/L ALT (GPT) 16 0-31 U/L Triglyceride 173 H <150 mg/dL Desirable Triglyceride: less than 150 mg/dL Borderline High Triglyceride 150-199 mg/dL High Triglyceride: 200-499 mg/dL Very High Triglyceride: greater than or equal to 5OO mg/dL Cholesterol 117 <200 mg/dL Desirable Cholesterol: less than 200 mg/dL Borderline High Cholesterol: 200-239 mg/dL High Cholesterol: greater than 239 mg/dL LDL Calculated 47 <100 mg/dL Desirable LDL: less than 100 mg/dL Near Optimal/Above Optimal LDL: 110-129 mg/dL Borderline High LDL: 130-159 mg/dL High LDL: 160-189 mg/dL Very High LDL: greater than or equal to 190 mg/dL HDL 36 L >40 mg/dL Desirable HDL: greater than 40 mg/dL Note: This HDL assay may give artificially low results in patients with liver disease. Free T4 1.27 0.71-1.85 ng/dL TSH 3rd Gen. 0.26 L 0.32-4.0 uIU/mL TSH 3rd Generation ([facility]) Coding Level of Care Code Est Pt Level 4 (04551) Diagnoses Dyslipidemia E78.5 Essential hypertension I10 Hypertension type: essential hypertension Acquired hypothyroidism E03.9 Hypothyroidism type: acquired Diabetes mellitus with hyperglycemia, without long-term current use of insulin E11.65 Paroxysmal atrial fibrillation I48.0 Assessment & Plan Assessment & Plan (1) Dyslipidemia: Code(s): E78.5 - Hyperlipidemia, unspecified Category: Medical (2) Hypertension: Code(s): I10 - Essential (primary) hypertension Category: Medical Qualifiers: Hypertension type: essential hypertension Qualified Code(s): I10 - Essential (primary) hypertension (3) Hypothyroidism: Code(s): E03.9 - Hypothyroidism, unspecified Category: Medical Qualifiers: Hypothyroidism type: acquired Qualified Code(s): E03.9 - Hypothyroidism, unspecified (4) Diabetes mellitus with hyperglycemia, without long-term current use of insulin: Code(s): E11.65 - Type 2 diabetes mellitus with hyperglycemia Category: Medical (5) Paroxysmal atrial fibrillation: Code(s): I48.0 - Paroxysmal atrial fibrillation Category: Medical Plan: Currently on apixaban followed by cardiology Plan The patient will continue on the current dose of metformin and Ozempic, as it has effectively managed her blood glucose levels and contributed to weight loss without adverse effects. Regular monitoring of blood pressure and lipid levels will be maintained to ensure continued control of hypertension and hyperlipidemia. Continued on present medications. The patient is encouraged to engage in regular physical activity to improve HDL cholesterol levels and overall cardiovascular health. Regular eye check-ups will continue to monitor macular degeneration, with no current issues reported. Followed by cardiology for her paroxysmal atrial fibrillation and coronary artery disease will see her back for follow-up in 3 months after fasting labs done Patient was informed and verbally consented to the use of an ambient scribe for clinic note documentation during this visit. Orders: Orders Hemoglobin A1c 05/19/25 E03.9 - Hypothyroidism, unspecified, E11.65 - Type 2 diabetes mellitus with hyperglycemia, E78.5 - Hyperlipidemia, unspecified, I10 - Essential (primary) hypertension, M81.8 - Other osteoporosis without current pathological fracture Lipid Panel 05/19/25 E03.9 - Hypothyroidism, unspecified, E11.65 - Type 2 di abetes mellitus with hyperglycemia, E78.5 - Hyperlipidemia, unspecified, I10 - Essential (primary) hypertension, M81.8 - Other osteoporosis without current pathological fracture Vitamin D 25-OH Total 05/19/25 E03.9 - Hypothyroidism, unspecified, E11.65 - Type 2 diabetes mellitus with hyperglycemia, E78.5 - Hyperlipidemia, unspecified, I10 - Essential (primary) hypertension, M81.8 - Other osteoporosis without current pathological fracture Thyroid Stimulating Hormone 05/19/25 E03.9 - Hypothyroidism, unspecified, E11.65 - Type 2 diabetes mellitus with hyperglycemia, E78.5 - Hyperlipidemia, unspecified, I10 - Essential (primary) hypertension, M81.8 - Other osteoporosis without current pathological fracture Alanine Aminotransferase 05/19/25 E03.9 - Hypothyroidism, unspecified, E11.65 - Type 2 diabetes mellitus with hyperglycemia, E78.5 - Hyperlipidemia, unspecified, I10 - Essential (primary) hypertension, M81.8 - Other osteoporosis without current pathological fracture Aspartate Amino Transferase 05/19/25 E03.9 - Hypothyroidism, unspecified, E11.65 - Type 2 diabetes mellitus with hyperglycemia, E78.5 - Hyperlipidemia, unspecified, I10 - Essential (primary) hypertension, M81.8 - Other osteoporosis without current pathological fracture Basic Metabolic Panel Fasting 05/19/25 E03.9 - Hypothyroidism, unspecified, E11.65 - Type 2 diabetes mellitus with hyperglycemia, E78.5 - Hyperlipidemia, unspecified, I10 - Essential (primary) hypertension, M81.8 - Other osteoporosis without current pathological fracture Free T4 (Free Thyroxine) 05/19/25 E03.9 - Hypothyroidism, unspecified, E11.65 - Type 2 diabetes mellitus with hyperglycemia, E78.5 - Hyperlipidemia, unspecified, I10 - Essential (primary) hypertension, M81.8 - Other osteoporosis without current pathological fracture Medications: Refilled Ozempic (semaglutide) for 4 weeks 0.5 mg (0.736 mL) subcut QWEEK 3 mL 5RF 30 days NS E11.65 - Type 2 diabetes mellitus with hyperglycemia
== END 2025-02-15 08:42 | disposition home or self-care (01) ==
LOC: HO.HMCC 08:01
PROVIDERS: PCP Internal Medicine; Visit Provider Internal Medicine
DX: E78.5 Hyperlipidemia, unspecified (principal); E11.65 Type 2 diabetes mellitus with hyperglycemia; I48.0 Paroxysmal atrial fibrillation; I10 Essential (primary) hypertension; E03.9 Hypothyroidism, unspecified

== ENCOUNTER → 2025-02-15 08:00 | Outpatient (BNVA) | payer MEDICARE, SELFPAY | PROVIDERS: PCP Internal Medicine; Visit Provider Internal Medicine | DX: E11.65 Type 2 diabetes mellitus with hyperglycemia (principal); I10 Essential (primary) hypertension; E78.5 Hyperlipidemia, unspecified; E03.9 Hypothyroidism, unspecified; I48.0 Paroxysmal atrial fibrillation; Z79.84 Long term (current) use of oral hypoglycemic drugs | CPT/HCPCS: 99212 ==

== ENCOUNTER 2025-05-22 10:18 | Outpatient (AMB) | payer MEDICARE, SELFPAY ==
--- OUTSIDE RECORDS SUMMARY | 2024-05-22 06:00 | XMS_ITS ---
[facility] Organization [facility] Address [address] [place] [address] Care Team Providers Care Collar Stitcher Name Role Phone Teresita JEAN BAPTISTE, Allegra Quinn Primary Care Provider Un available ReidAdi sevillaen Unavailable [phone] Latoya Rodriguez Unavailable [phone] Encounters Encounter Location Date Provider Diagnosis [address] [address] 05/22/2024 Latoya Rodriguez Plan Of Treatment No Information Progress Notes * Angelika RONDOB:1940 (84 yo F)Acc No.[id number]:05/22/2024 Progress Note Patient: Angelika CHIU Provider: Velma Rodriguez DPM :1940 A ge:83 Y S ex:Female Date:05/22/2024 Address:[address] [place], [place] [id number] Pcp:Stefania Bojorquez Subjective: * Chief Complaints: * * Medical History: Objective: * Vitals: Assessment: Plan: * Treatment: * Images: * The named appointment provid er may or may not be the originator of this progress note, and it is not deemed complete until electronically signed by the appointment provider. Sign off status: Pending * Provider: Velma Rodriguez DPM Date: 07/22/2023 Generated for Printi ng/Faxing/eTransmitting on: 07/22/2024 12:07 PM EST
--- OUTSIDE RECORDS SUMMARY | 2024-05-22 06:00 | XMS_ITS ---
Author Organization [facility] Address [address] [place] [id number] Care Team Providers Care Surface Grinding Machine Hand Name Role Phone Teresita JEAN ABPTISTE, Allegra Quinn Primary Care Provider Un available Lisandra Rodríguez Unavailable [phone] Calvin Gipson Unavailable [phone] REASON FOR VISIT Sched w/Dr CASTILLO Encounters Encounter Location Date Provider Diagnosis [address] [address] 05/22/2024 Calvin Gipson Plan Of Treatment No Information Progress Notes * Angelika RONDOB:1940 (84 yo F)Acc No.[id number]:05/22/2024 Progress Note Patient: Angelika CHIU Provider: Tj Altman DPM :1940 A ge:83 Y S ex:Female Date:05/22/2024 Address:[address] [place], [place] [id number] Pcp:Stefania Bojorquez Subjective: * Chief Complaints: * 1 . Sched w/Dr CASTILLO. * Medical History: Objective: * Vitals: Assessment: Plan: * Treatment: * Images: * The named appointment provid er may or may not be the originator of this progress note, and it is not deemed complete until electronically signed by the appointment provider. Sign off status: Pending * Provider: Tj Altman DPM Date: 07/22/2023 Generated for Avani chowdary/Karoline/eTransmitting on: 07/22/2024 12:06 PM EST
--- OUTSIDE RECORDS SUMMARY | 2024-06-12 06:30 | XMS_ITS ---
Author Organization [facility] Address [address] [place] [phone] Care Team Providers Care Call Or Contact Centre Manager Name Role Phone Teresita JEAN BAPTISTE, Allegra Quinn Primary Care Provider Un available ReidLisandra sevilla Unavailable [phone] Latoya Rodriguez Unavailable [phone] Salazar Encounters Encounter Location Date Provider Diagnosis [address] [address] 06/12/2024 Latoya Rodriguez Plan Of Treatment No Information Progress Notes * Angelika RONDOB:1940 (84 yo F)Acc No.[id number]:06/12/2024 Progress Note Patient: Angelika CHIU Provider: Velma Rodriguez DPM :1940 A ge:83 Y S ex:Female Date:06/12/2024 Address:[address] [place], [place] [id number] Pcp:Stefania Bojorquez Subjective: * Chief Complaints: * [address] Salazar. * Medical History: Objective: * Vitals: Assessment: Plan: * Treatment: * Images: * The named appointment provid er may or may not be the originator of this progress note, and it is not deemed complete until electronically signed by the appointment provider. Sign off status: Pending * Provider: Velma Rodriguez DPM Date: 08/12/2023 Generated for Printi ng/Faxing/eTransmitting on: 07/22/2024 12:07 PM EST
--- OUTSIDE RECORDS SUMMARY | 2024-08-04 07:45 | XMS_ITS ---
Author Organization [facility] Address [address] [place] [id number] Care Team Providers Care Weft Straightener Name Role Phone Teresita JEAN BAPTISTE, Allegra Quinn Primary Care Provider Un available Lisandra Rodríguez Unavailable [phone] Encounters Encounter Location Date Provider Diagnosis [address] [address] 08/04/2024 Lisandra Rodríguez Plan Of Treatment No Information Progress Notes * Angelika RONDOB:1940 (84 yo F)Acc No.[id number]:08/04/2024 Progress Note Patient: Angelika CHIU Provider: Letty Rodríguez DPM :1940 A ge:83 Y S ex:Female Date:08/04/2024 Address:[address] [place], [place] [id number] Pcp:Stefania Bojorquez Subjective: * Chief Complaints: * * Medical History: Objective: * Vitals: Assessment: Plan: * Treatment: * Images: * The named appointment provid er may or may not be the originator of this progress note, and it is not deemed complete until electronically signed by the appointment provider. Sign off status: Pending * Provider: Letty Rodríguez DPM Date: 0 08/04/2024 Generated for Amani ricarda/Fayessicag/eTransmitting on: 07/22/2024 12:06 PM EST
--- OUTSIDE RECORDS SUMMARY | 2024-10-27 07:15 | XMS_ITS ---
Author Organization [facility] Address [address] [place] [address] Care Team Providers Care Ludlow Machine Operator Name Role Phone Teresita JEAN BAPTISTE, Allegra Quinn Primary Care Provider Un available Lisandra Rodríguez Unavailable [phone] Salazar Encounters Encounter Location Date Provider Diagnosis [facility] [address] [place] [address] 10/27/2024 Lisandra Rodríguez Plan Of Treatment No Information Progress Notes * Angelika RONDOB:1940 (84 yo F)Acc No.[id number]:10/27/2024 Progress Note Patient: Angelika CHIU Provider: Letty Rodríguez DPM :1940 A ge:83 Y S ex:Female Date:10/27/2024 Address:[address] [place], [place] [id number] Pcp:Stefania Bojorquez Subjective: * Chief Complaints: * [...] 10/27/2024 Generated for Printi ng/Faxing/eTransmitting on: 1 07/22/2024 12:07 PM EST
--- OUTSIDE RECORDS SUMMARY | 2024-11-17 07:30 | XMS_ITS ---
Author Organization [facility] Address [address] [place] [address] Care Team Providers Care Navy Airspace Officer Name Role Phone Teresita JEAN BAPTISTE, Allegra Quinn Primary Care Provider Un available Marcos Lisandra Unavailable [phone] Medications Medication SIG (Take, Route, Frequency, Duration) Notes Start Date End Date Status zzzExtra Depth Orthopedic Shoes (1 Pair) with Customized Heat Molded Multidensity Innersoles (3 Pair) . . . Dx: NIDDM (E11.9), Hammertoe Foot Deformity (M20.41,M20.42), Preulcerative Skin Lesion(s) (L85.1); Duration: . 06/07/2015 Not-Taking Atenolol Not-Taking Clopidogrel Bisulfate Not-Taking Aspirin Not-Taking Vitamin B12 1000 MCG 1 tablet Orally Onc e a day; Duration: 30 day(s) Not-Kevin ing Metoprolol Succinate 100 MG 1 capsule Orally Once a day; Duration: 30 day(s) Active NIFEdipine Active PreserVision AREDS - as directed Orally Active Vitamin D3 50 MCG (1999 UT) 1 capsule Orally Once a day; Duration: 30 day(s) Active glipiZIDE XL 5 MG 1 tablet with breakf ast Orally Once a day Not-Taking Calcium Active Eliquis 5 MG 1 tablet Orally Twic e a day; Duration: 30 day(s) Active Levothyroxine Sodium Active Lisinopril 10 MG 1 tablet Orally Once a day Active metFORMIN HCl 1000 MG 1 tablet with a me al Orally Once a day; Duration: 30 day(s) Active Jardiance Active januvia Active Atorvastatin Calcium 40 MG 1 tablet Orally Once a day Active Encounters Encounter Location Date Provider Diagnosis [facility] [place] [address] [place] [address] 11/17/2024 Lisandra Rodríguez Plan Of Treatment No Information Progress Notes * Angelika RONDOB:1940 (84 yo F)Acc No.[id number]:11/17/2024 Progress Note Patient: Angelika CHIU Provider: Letty Rodríguez DPM :1940 A ge:84 Y S ex:Female Date:11/17/2024 Address:[address] [place], [place] [phone] Pcp:Stefania Bojorquez Subjective: * Chief Complaints: * * Medical History: H eart disease, type II diabetes, Hypertension, Measles, Mumps, Chicken pox, Cholesterol, Broken bones, Cancer, Cataracts, Gall bladder problems, Thyroid, Joint implants/screws, Heart Stents, Covid-19, Macular degeneration. * Medications: T aking Jardiance , Taking januvia , Taking Atorvastatin Calcium 40 MG Tablet 1 tablet Orally Once a day , Taking Calcium , Taking Eliquis 5 MG Tablet 1 tablet Orally Twice a day , Taking Levothyroxine Sodium , Taking Lisinopril 10 MG Tablet 1 tablet Orally Once a day , Taking metFORMIN HCl 1000 MG Tablet 1 tablet with a meal Orally Once a day , Taking Metoprolol Succinate 100 MG Capsule ER 24 Hour Sprinkle 1 capsule Orally Once a day , Taking NIFEdipine , Taking PreserVision AREDS - Capsule as directed Orally , Taking Vitamin D3 50 MCG (2000 UT) Capsule 1 capsule Orally Once a day , Not-Taking/PRN glipiZIDE XL 5 MG Tablet Extended Release 24 Hour 1 tablet with breakfast Orally Once a day , Not-Taking/PRN Vitamin B12 1000 MCG Tablet Extended Release 1 tablet Orally Once a day , Not-Taking/PRN zzzExtra Depth Orthopedic Shoes (1 Pair) with Customized Heat Molded Multidensity Innersoles (3 Pair) . . . . Dx: NIDDM (E11.9), Hammertoe Foot Deformity (M20.41,M20.42), Preulcerative Skin Lesion(s) (L85.1) , Not-Taking/PRN Atenolol , Not-Taking/PRN Clopidogrel Bisulfate , Not-Taking/PRN Aspirin Objective: * Vitals: Assessment: Plan: * Treatment: * Images: * The named appointment provid er may or may not be the originator of this progress note, and it is not deemed complete until electronically signed by the appointment provider. Sign off status: Pending * Provider: Letty Rodríguez DPM Date: 0 11/17/2024 Generated for Avani chowdary/Karoline/Pauline on: 07/22/2024 12:07 PM EST
--- OUTSIDE RECORDS SUMMARY | 2024-12-05 08:30 | XMS_ITS ---
Author Organization [facility] Address [address] [place] [address] Care Team Providers Care Ticket Speculator Name Role Phone Teresita JEAN BAPTISTE, Allegra Quinn Primary Care Provider Un available Lisandra Rodríguez Unavailable [phone] REASON FOR VISIT Seen Sooner Encounters Encounter Location Date Provider Diagnosis [facility] [address] [place] [address] 12/05/2024 Lisandra Rodríguez Plan Of Treatment No Information Progress Notes * Angelika RONDOB:1940 (84 yo F)Acc No.[id number]:12/05/2024 Progress Note Patient: Angelika CHIU Provider: Letty Rodríguez DPM :1940 A ge:84 Y S ex:Female Date:12/05/2024 Address:[address] [place], [place] [phone] Pcp:Stefania Bojorquez Subjective: * Chief Complaints: * [...] 12/05/2024 Generated for Printi ng/Faxing/eTransmitting on: 1 07/22/2024 12:06 PM EST
--- OUTSIDE RECORDS SUMMARY | 2025-04-18 06:15 | XMS_ITS ---
Author Organization [facility] Address [address] [place] [id number] Care Team Providers Care Sealant Mixer Name Role Phone Teresita JEAN BAPTISTE, Allegra Quinn Primary Care Provider Un available Lisandra Rodríguez Unavailable [phone] Encounters Encounter Location Date Provider Diagnosis [address] [address] 04/18/2025 Lisandra Rodríguez Plan Of Treatment No Information Progress Notes * Angelika RONDOB:1940 (84 yo F)Acc No.[id number]:04/18/2025 Progress Note Patient: Angelika CHIU Provider: Letty Rodríguez DPM :1940 A ge:84 Y S ex:Female Date:04/18/2025 Address:[address] [place], [place] [id number] Pcp:Stefania Bojorquez Subjective: * Chief Complaints: * * Medical History: Objective: * Vitals: Assessment: Plan: * Treatment: * Images: * The named appointment provid er may or may not be the originator of this progress note, and it is not deemed complete until electronically signed by the appointment provider. Sign off status: Pending * Provider: Letty Rodríguez DPM Date: Generated for Amani ricarda/Karoline/eTransmitting on: 07/22/2024 12:06 PM EST
[2025-05-22 10:24] VITALS: BP 126/78; PULSE 97; BMI 26.4
--- NOTE | 2025-05-22 10:24 | A.OFFVIS_ITS ---
Vital Signs 05/22/25 10:24 Height 5 ft 5 in Weight 158 lb 11.725 oz BMI 26.4 BP 126/78 Blood Pressure Location Lt brachial Position Sitting Pulse 97 Intake Visit Reasons: r/s 02/27-03/22/25 1 yr followup w/eg Intake Note: 1 year follow-up with ekg hearts doing good Allergies cat dander (CAT DANDER) Allergy (Mild, Verified 02/15/25 08:21) ITCHY EYES cat's claw Allergy (Unknown, Verified 02/15/25 08:21) Unknown HPI Comments Details: Rafat comes for her annual follow up after a longer gap. Overall she has been doing well. She has been struggling with her left hip issues and pain which limits her activity level. She is about twice in the last year she has felt brief rapid heart rate but they have then subsided very quickly. She has not had any prolonged episodes. She denies any exertional chest pain. Denies any worsening shortness of breath. Says about few days ago she had overnight some congestion which has now dissipated. She denies any leg edema. Blood pressures been generally well controlled. No bleeding issues or neurologic events. 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 History of primary hyperparathyroidism Diabetes mellitus with hyperglycemia, without long-term current use of insulin Hypothyroidism History of multinodular goiter Hypertrophic toenail Vitamin D deficiency Ex-smoker CAD (coronary artery disease) Atherosclerotic heart disease Paroxysmal atrial fibrillation Hypertension Dyslipidemia B12 deficiency Osteoporosis Surgical History Hx of cataract History of parathyroidectomy H/O total thyroidectomy Stented coronary artery Hx of cholecystectomy Hx of hysterectomy Family History Father Sudden cardiac CVD (cardiovascular disease) Mother No problems noted. Sister Substance use disorder Social History Household Members Other:: 2 daughters Housing: House Alcohol intake: current Alcohol intake frequency: a few times a month Alcohol type: wine Patient Tobacco Use Status: Former Tobacco user Years Smoked: 30 years e-Cigarette/Vaping Use: Never Used service: No Current occupational status: retired Cognitive needs: No Hearing needs: No Vision needs: Yes Review of Systems Const Denies chills, Denies fatigue, Denies fever(s), Denies frequent falls, Denies weakness, Denies weight gain and Denies weight loss ENT Denies dizziness Card Denies chest pain, Denies leg edema, Denies lightheadedness, Denies palpitations, Denies dyspnea, Denies dyspnea on exertion, Denies orthopnea and Denies other (loss of consciousness) Resp Denies cough, Denies dyspnea and Denies dyspnea on exertion GI Denies hematochezia and Denies change in stool character Musc Denies abnormal gait, Denies muscle weakness, Denies numbness, Denies radiating pain into limb and Denies tingling Neuro Denies abnormal gait, Denies dizziness, Denies frequent falls, Denies numbness, Denies tingling and Denies weakness Endo Denies fatigue and Denies palpitations Physical Exam Vital Signs: Last Vital Signs Pulse 97 05/22/25 10:24 BP 126/78 05/22/25 10:24 BMI result Body Mass Index 26.4 Const General: cooperative, comfortable, no acute distress, alert and awake Nutritional Appearance: average body habitus Orientation/consciousness: patient oriented x3 Limitations: ambulation with cane Neck Neck: Yes trachea midline, Yes supple and Yes no JVD Chest Chest palpation & inspection: normal inspection of the chest Resp Effort & Inspection: normal respiratory effort Auscultation: clear to auscultation bilaterally Cardio Jugular venous distension: no JVD Palpation: normal PMI Rate: regular rate Rhythm: regular rhythm Heart sounds: S1 normal heart sound present, S2 normal heart sound present and Murmur heart sound present systolic early, decrescendo and crescendo GI Auscultation: normal bowel sounds Skin General skin exam: no rashes or lesions noted Neuro General: patient oriented x3 and no focal motor deficits Extrem General: Yes no clubbing, cyanosis or edema Psych Appearance: grossly normal Office Procedures EKG Details: EKG shows ectopic atrial rhythm with 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 At this point time I would continue with current medical therapy. She is currently on full oral anticoagulation therefore would avoid aspirin therapy to reduce bleeding risk and other complications. Continue high- intensity statin therapy with well optimized LDL on recent exam. Continue aggressive blood pressure control which is currently well optimized. Importance of good blood pressure control was discussed. Continue to aggressively control diabetes management goal hemoglobin A1c less than 7%. She is encouraged to increase activity level. She is going to seek orthopedic care to see if anything can be done about her left hip. (2) Paroxysmal atrial fibrillation: Code(s): I48.0 - Paroxysmal atrial fibrillation Category: Medical Plan: Paroxysmal atrial fibrillation without any significant recurrence at this point in time. She does not have ectopic atrial rhythm on today's EKGs but that does not place change roof bolter plan. Her symptoms are minimal and therefore would not change medical therapy and would avoid using antiarrhythmic drug therapy at this point time. Continue metoprolol therapy. Avoidance of stimulants was discussed. Continue aggressive blood pressure control. Currently on full oral anticoagulation with apixaban. Semi annual renal function test should be pursued. Will follow up in the clinic in 1 year's time, sooner PRN. Thank you for allowing me to partake in her care Coding Level of Care Code Est Pt Level 4 (62194) Complex EM visit Add On G2211 Diagnoses CAD (coronary artery disease) I25.10 Paroxysmal atrial fibrillation I48.0 CPT Codes EKG - CPT: 81482-[id number], Complete ([id number])
--- OUTSIDE RECORDS SUMMARY | 2025-05-22 12:07 | XMS_ITS | Patient Health Record ---
[facility] Organization [facility] Address [address] [place] [address] Care Team Providers Care Obstetrician And Gynaecologist Name Role Phone Teresita JEAN BAPTISTE, Allegra Quinn Primary Care Provider Un available Lisandra Rodríguez Unavailable [phone] Brandan Calvin Unavailable [phone] Latoya Rodriguez Unavailable [phone] Allergies No Known Allergies Reason For Referral No Information Medications Medication [...] (2000 UT) 1 capsule Orally Once a day; [...] Status Risk Notes Problem Acquired hallux valgus (66233831) Hallux valgus (acquired), left foot (M20.12) Active confirmed Problem Acquired hammer toe of right foot (674786343779439 5) Other hammer toe(s) (acquired), right foot (M20.41) Active confirmed Problem Acquired hammer toe of left foot (068733037773990 3) Other hammer toe(s) (acquired), left foot (M20.42) Active confirmed Problem Type II diabetes mellitus without complication (572882708) Type 2 diabetes mellitus without complication (E11.9) Active confirmed Vital Signs Blood pressure diastolic 60 mm Hg 01/16/2025 Height 5 ft 4.5 in in 01/16/2025 Blood pressure systolic 120 mm Hg 01/16/2025 Weight 178 lbs 01/16/2025 BMI 30.08 kg/m2 01/16/2025 Encounters Encounter Location Date Provider Diagnosis [facility] [address] [place] [address] 08/09/2024 Lisandra Rodríguez Tinea unguium B35.1 ; Other hammer toe(s) (acquired), right foot M20.41 ; Pain in right toe(s) M79.674 ; Pain in left toe(s) M79.675 ; Type 2 diabetes mellitus without complication E11.9 and Other hammer toe(s) (acquired), left foot M20.[address] [facility] [address] 01/16/2025 Lisandra Rodríguez Tinea unguium B35.1 ; Pain in right toe(s) M79.674 ; Pain in left toe(s) M79.675 and Type 2 diabetes mellitus without complication E11.9 [facility] [address] [place] [address] 08/03/2024 Lisandra Rodríguez [facility] [address] 08/09/2024 Lisandra Pericdi [facility] [address] 11/16/2024 [facility] [address] 04/17/2025 Lisandra Rodríguez Assessments Encounter Date Diagnosis (ICD [...] X ray : Foot, right 3V 09/09/2023 [id number] NAIL, 6 OR MORE 06/07/2015 [id number] NAIL, 6 OR MORE 09/13/2015 16247-Wcceuhgh Plate 09/13/2015 68877-Cqzteryd Plate Each Additional 47842-Vyuqzeyk Plate Each Additional Insurance Providers Payer Name Payer Address Payer Phone Subscriber Number Group Number Insured Name Patient Relationship to Insured Coverage Start Date Coverage End Date [employer] [address] [facility] [place] [address] [id number] Angelika Mora Self - patient is the [...] cataract surgery 09/18/22 Hospitalization History Reason Date(Month/Year) [facility], overnight, hear t issues 05/19/2015
== END 2025-05-22 10:44 | disposition home or self-care (01) ==
LOC: HO.HCS 10:18
PROVIDERS: PCP Internal Medicine; Visit Provider Internal Medicine Cardiovascular Disease
DX: I25.10 Atherosclerotic heart disease of native coronary artery without angina pectoris (principal); I48.0 Paroxysmal atrial fibrillation
CPT/HCPCS: 93010; 99214; G2211

== ENCOUNTER → 2025-05-22 10:18 | Outpatient (BNVA) | payer MEDICARE, SELFPAY | PROVIDERS: PCP Internal Medicine; Visit Provider Internal Medicine Cardiovascular Disease | DX: I25.10 Atherosclerotic heart disease of native coronary artery without angina pectoris (principal); I48.0 Paroxysmal atrial fibrillation | CPT/HCPCS: 93005; 99212 ==

== ENCOUNTER 2025-05-30 08:27 | Outpatient (REF) | payer MEDICARE, SELFPAY ==
--- OUTSIDE RECORDS SUMMARY | 2024-05-22 06:00 | XMS_ITS ---
Author Organization [facility] Address [address] [place] [address] Care Team Providers Care Perforating Machine Operator Name Role Phone Teresita JEAN BAPTISTE, Allegra Quinn Primary Care Provider Un available Liasndra Rodríguez Unavailable [phone] Calvin Gipson Unavailable [phone] REASON FOR VISIT Sched w/Dr CASTILLO Encounters Encounter Location Date Provider Diagnosis [address] [address] 05/22/2024 Calvin Gipson Plan Of Treatment No Information Progress Notes * Angelika RONDOB:1940 (84 yo F)Acc No.[id number]:05/22/2024 Progress Note Patient: Angelika CHIU Provider: Tj Altman DPM :1940 A ge:83 Y S ex:Female Date:05/22/2024 Address:[address] [place], [place] [id number] Pcp:Stefania Bojorquez Subjective: * Chief Complaints: * [...] Date: 07/22/2023 Generated for Avani chowdary/Karoline/eTransmitting on: 07/30/2024 08:41 AM EST
--- OUTSIDE RECORDS SUMMARY | 2024-05-22 06:00 | XMS_ITS ---
Author Organization [facility] Address [address] [place] [address] Care Team Providers Care Benzene Still Utility Operator Name Role Phone Teresita JEAN BAPTISTE, Allegra Quinn Primary Care Provider Un available ReidAdi sevillaen Unavailable [phone] Latoya Rodriguez Unavailable [phone] Encounters Encounter Location Date Provider Diagnosis [address] [address] 05/22/2024 Latoya Rodriguez Plan Of Treatment No Information Progress Notes * Angelika RONDOB:1940 (84 yo F)Acc No.[id number]:05/22/2024 Progress Note Patient: Angelika CHIU Provider: Velma Rodriguez DPM :1940 A ge:83 Y S ex:Female Date:05/22/2024 Address:[address] [place], [place] [id number] Pcp:Stefania Bojorquez Subjective: * Chief Complaints: * [...] Date: 07/22/2023 Generated for Printi ng/Faxing/eTransmitting on: 07/30/2024 08:42 AM EST
--- OUTSIDE RECORDS SUMMARY | 2024-06-12 06:30 | XMS_ITS ---
Author Organization [facility] Address [address] [place] [id number] Care Team Providers Care Investigator Welfare Name Role Phone Teresita JEAN BAPTISTE, Allegra Quinn Primary Care Provider Un available ReidLisandra sevilla Unavailable [phone] Latoya Rodriguez Unavailable [phone] Salazar Encounters Encounter Location Date Provider Diagnosis [address] [address] 06/12/2024 Latoya Rodriguez Plan Of Treatment No Information Progress Notes * Angelika RONDOB:1940 (84 yo F)Acc No.[id number]:06/12/2024 Progress Note Patient: Angelika CHIU Provider: Velma Rodriguez DPM :1940 A ge:83 Y S ex:Female Date:06/12/2024 Address:[address] [place], [place] [id number] Pcp:Stefania Bojorquez Subjective: * Chief Complaints: * [...] Date: 08/12/2023 Generated for Printi ng/Faxing/eTransmitting on: 07/30/2024 08:42 AM EST
--- OUTSIDE RECORDS SUMMARY | 2024-08-04 07:45 | XMS_ITS ---
Author Organization [facility] Address [address] [place] [phone] Care Team Providers Care Position Description Manager Name Role Phone Teresita JEAN BAPTISTE, Allegra Quinn Primary Care Provider Un available Lisandra Rodríguez Unavailable [phone] Encounters Encounter Location Date Provider Diagnosis [address] [address] 08/04/2024 Lisandra Rodríguez Plan Of Treatment No Information Progress Notes * Angelika RONDOB:1940 (84 yo F)Acc No.[id number]:08/04/2024 Progress Note Patient: Angelika CHIU Provider: Letty Rodríguez DPM :1940 A ge:83 Y S ex:Female Date:08/04/2024 Address:[address] [place], [place] [phone] Pcp:Stefania Bojorquez Subjective: * Chief Complaints: * [...] 0 08/04/2024 Generated for Amani ricarda/Fayessicag/eTransmitting on: 07/30/2024 08:41 AM EST
--- OUTSIDE RECORDS SUMMARY | 2024-10-27 07:15 | XMS_ITS ---
Author Organization [facility] Address [address] [place] [address] Care Team Providers Care Javascript Application Developer Name Role Phone Teresita JEAN BAPTISTE, Allegra Quinn Primary Care Provider Un available Lisandra Rodríguez Unavailable [phone] Salazar Encounters Encounter Location Date Provider Diagnosis [facility] [address] [place] [address] 10/27/2024 Lisandra Rodríguez Plan Of Treatment No Information Progress Notes * Angelika RONDOB:1940 (84 yo F)Acc No.[id number]:10/27/2024 Progress Note Patient: Angelika CHIU Provider: Letty Rodríguez DPM :1940 A ge:83 Y S ex:Female Date:10/27/2024 Address:[address] [place], [place] [id number] Pcp:Stefania Bojorquez Subjective: * Chief Complaints: * [...] * Provider: Letty Rodríguez DPM Date: 0 10/27/2024 Generated for Printi ng/Faxing/eTransmitting on: 1 07/30/2024 08:42 AM EST
--- OUTSIDE RECORDS SUMMARY | 2024-11-17 07:30 | XMS_ITS ---
Author Organization [facility] Address [address] [place] [address] Care Team Providers Care Machine Stapler Name Role Phone Teresita JEAN BAPTISTE, Allegra Quinn Primary Care Provider Un available Marcos Lisandra Unavailable [phone] Medications Medication SIG (Take, Route, Frequency, Duration) [...] Active Encounters Encounter Location Date Provider Diagnosis [facility] [address] [place] [address] 11/17/2024 Lisandra Rodríguez Plan Of Treatment No Information Progress Notes * Angelika RONDOB:1940 (84 yo F)Acc No.[id number]:11/17/2024 Progress Note Patient: Angelika CHIU Provider: Letty Rodríguez DPM :1940 A ge:84 Y S ex:Female Date:11/17/2024 Address:[address] [place], [place] [phone] Pcp:Stefania Bojorquez Subjective: * Chief Complaints: * [...] 0 11/17/2024 Generated for Avani chowdary/Karoline/Pauline on: 07/30/2024 08:42 AM EST
--- OUTSIDE RECORDS SUMMARY | 2024-12-05 08:30 | XMS_ITS ---
Author Organization [facility] Address [address] [place] [address] Care Team Providers Care Supervisor Dry Cleaning Name Role Phone Teresita JEAN BAPTISTE, Allegra Quinn Primary Care Provider Un available Lisandra Rodríguez Unavailable [phone] REASON FOR VISIT Seen Sooner Encounters Encounter Location Date Provider Diagnosis [facility] [address] [place] [address] 12/05/2024 Lisandra Rodríguez Plan Of Treatment No Information Progress Notes * Angelika RONDOB:1940 (84 yo F)Acc No.[id number]:12/05/2024 Progress Note Patient: Angelika CHIU Provider: Letty Rodríguez DPM :1940 A ge:84 Y S ex:Female Date:12/05/2024 Address:[address] [place], [place] [id number] Pcp:Stefania Bojorquez Subjective: * Chief Complaints: * 1 . Seen Sooner. * Medical History: Objective: * Vitals: Assessment: Plan: * Treatment: * Images: * The named appointment provid er may or may not be the originator of this progress note, and it is not deemed complete until electronically signed by the appointment provider. Sign off status: Pending * Provider: Letty Rodríguez DPM Date: 0 12/05/2024 Generated for Printi ng/Faxing/eTransmitting on: 1 07/30/2024 08:41 AM EST
--- OUTSIDE RECORDS SUMMARY | 2025-04-18 06:15 | XMS_ITS ---
Author Organization [facility] Address [address] [place] [id number] Care Team Providers Care Right Of Way Worker Name Role Phone Teresita JEAN BAPTISTE, Allegra Quinn Primary Care Provider Un available Lisandra Rodríguez Unavailable [phone] Encounters Encounter Location Date Provider Diagnosis [address] [address] 04/18/2025 Lisandra Rodríguez Plan Of Treatment No Information Progress Notes * Angelika RONDOB:1940 (84 yo F)Acc No.[id number]:04/18/2025 Progress Note Patient: Angelika CHIU Provider: Letty Rodríguez DPM :1940 A ge:84 Y S ex:Female Date:04/18/2025 Address:[address] [place], [place] [id number] Pcp:Stefania Bojorquez Subjective: * Chief Complaints: * [...] DPM Date: Generated for Amani ricarda/Karoline/eTransmitting on: 07/30/2024 08:42 AM EST
--- OUTSIDE RECORDS SUMMARY | 2025-05-30 08:41 | XMS_ITS | Patient Health Record ---
Author Organization [facility] Address [address] [place] [address] Care Team Providers Care Motorcycle Technician Name Role Phone Teresita JEAN BAPTISTE, Allegra Quinn Primary Care Provider Un available ReidAdi sevillaen Unavailable [phone] Latoya Rodriguez Unavailable [phone] Allergies No Known Allergies Reason For Referral [...] Status Risk Notes Problem Acquired hallux valgus (06065555) Hallux valgus (acquired), left foot (M20.12) Active confirmed Problem Acquired hammer toe of right foot (377958655384819 5) Other hammer toe(s) (acquired), right foot (M20.41) Active confirmed Problem Acquired hammer toe of left foot (687850673563833 3) Other hammer toe(s) (acquired), left foot (M20.42) Active confirmed Problem Type II diabetes mellitus without complication (657768954) Type 2 diabetes mellitus without complication (E11.9) Active confirmed Vital Signs Blood pressure diastolic 60 mm Hg 01/16/2025 Height 5 ft 4.5 in in 01/16/2025 Blood pressure systolic 120 mm Hg 01/16/2025 Weight 178 lbs 01/16/2025 BMI 30.08 kg/m2 01/16/2025 Encounters Encounter [facility] Date [facility] [address] [facility] Lisandra Rodríguez Tinea unguium B35.1 ; Other hammer toe(s) (acquired), right foot M20.41 ; Pain in right toe(s) M79.674 ; Pain in left toe(s) M79.675 ; Type 2 diabetes mellitus without complication E11.9 and Other hammer toe(s) (acquired), left foot M20.42 [facility] [address] [place] [address] 01/16/2025 Lisandra Rodríguez Tinea unguium B35.1 ; Pain in right toe(s) M79.674 ; Pain in left toe(s) M79.675 and Type 2 diabetes mellitus without complication E11.9 [facility] [address] [place] [address] 08/03/2024 Lisandra Rodríguez [facility] [address] 08/09/2024 [facility] [address] 11/16/2024 [facility] [address] 04/17/2025 Lisandra Rodríguez Assessments Encounter Date Diagnosis [...] X ray : Foot, right 3V 09/09/2023 [id number] NAIL, 6 OR MORE 06/07/2015 27359-[id number] NAIL, 6 OR MORE 09/13/2015 80293-Fnokwitd Plate 09/13/2015 69511-Amaidnyb Plate Each Additional 79560-Rvwgmyin Plate Each Additional Insurance Providers Payer Name Payer Address Payer Phone Subscriber Number Group Number Insured Name Patient Relationship to Insured Coverage Start Date Coverage End Date [employer] [address] [place] [address] [phone] [id number] Angelika Mora Self - patient is the [...] cataract surgery 09/18/22 Hospitalization History Reason Date(Month/Year) [facility], overnight, hear t issues 05/19/2015
[2025-05-30 11:46] LABS: Alanine Aminotransferase 14 U/L (0-31); Anion Gap 15 (12-20); Aspartate Amino Transferase 18 U/L (5-31); Blood Urea Nitrogen 12 mg/dL (9-16); Calcium 9.0 mg/dL (8.4-10.2); Carbon Dioxide 25 mmol/L (22-29); Chloride 106 mmol/L (96-108); Cholesterol 111 mg/dL (<200); Estimated Glomerular Filt Rate > 60; Free T4 (Free Thyroxine) 1.33 ng/dL (0.71-1.85); HDL Cholesterol 39 mg/dL (>40); Potassium 3.9 mmol/L (3.3-5.1); Sodium 142 mmol/L (135-145); Thyroid Stimulating Hormone 0.07 uIU/mL (0.32-4.0); Triglycerides 152 mg/dL (<150)
== END 2025-05-30 08:28 | disposition home or self-care (01) ==
LOC: HO.HMGCLDS 08:27
PROVIDERS: PCP Internal Medicine; Visit Provider Internal Medicine
DX: I10 Essential (primary) hypertension (principal); M81.8 Other osteoporosis without current pathological fracture; E78.5 Hyperlipidemia, unspecified; E11.65 Type 2 diabetes mellitus with hyperglycemia; E03.9 Hypothyroidism, unspecified
CPT/HCPCS: 36415; 80048; 80061; 82306; 83036; 84439; 84443; 84450; 84460

== ENCOUNTER 2025-06-05 07:53 | Outpatient (AMB) | payer MEDICARE, SELFPAY ==
[2025-06-05 08:01] VITALS: BP 100/60; PULSE 90; RESP 16; TEMP 36.5; O2SAT 94; BMI 26.8
--- NOTE | 2025-06-05 08:01 | MHC.PC.OV ---
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 Required: No Allergies cat dander (CAT DANDER) Allergy (Mild, Verified 06/05/25 08:14) ITCHY EYES cat's claw Allergy (Unknown, Verified 06/05/25 08:14) Unknown Medication List - Last Reconciled 06/05/25 by Allegra Lo MD apixaban (Eliquis) 5 mg PO Q12H atorvastatin 40 mg PO DAILY blood sugar diagnostic (FreeStyle Lite Strips) twice a day blood-glucose meter (FreeStyle Lite Meter kit) As directed lancets As directed twice a day levothyroxine 112 mcg PO DAILY lisinopril 10 mg PO DAILY metformin 1,000 mg PO BID metoprolol succinate ER 100 mg PO DAILY nifedipine ER 30 mg PO DAILY Ozempic (semaglutide) 0.5 mg (0.736 mL) subcut QWEEK 30 days NS Tobacco use date assessed: 06/05/25 Fall risk assessment: 1 Fall in past year Last assessed Fall Risk: 06/05/25 Dental Screening Dental Screen Date: 06/05/25 Did you have a dental visit in the last 12 months?: No Did you have a dental problem in the last 6 months where you did not have access to dental care?: No Was dental information given to patient?: Patient has dentist HPI 3 ffup dm , lipids , htn - see comments HPI Details 84-year-old lady with past medical history of diabetes mellitus, dyslipidemia, hypertension and hypothyroidism, here today follow-up. Has been feeling well, compliant with taking her medications, and adhering to recommended diet. She has been putting an alarm so that she remembers taking her medication and does not forget her morning metformin dose anymore. She sees [facility] in [place] , followed for macular degeneration on both eyes, no diabetic involvement in both eyes seen. Sees Dr. Rodríguez for diabetes foot exam yearly Latest fasting labs showed improvement in diabetes control with hemoglobin A1c down to 6.0%, normal fasting lipids, and thyroid levels are within normal limits. Blood pressure also within normal limits on current medications. Has been feeling well with no other complaints at present time. Complains of pain and swelling on MCP joint right index finger, which started 2 days ago. Has been applying icy hot, taking Tylenol arthritis and states that taking a hot shower makes it feel better, temporarily. 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 History of primary hyperparathyroidism Diabetes mellitus with hyperglycemia, without long-term current use of insulin Hypothyroidism History of multinodular goiter Hypertrophic toenail Vitamin D deficiency Ex-smoker CAD (coronary artery disease) Atherosclerotic heart disease Paroxysmal atrial fibrillation Hypertension Dyslipidemia B12 deficiency Osteoporosis Surgical History Hx of cataract History of parathyroidectomy H/O total thyroidectomy Stented coronary artery Hx of cholecystectomy Hx of hysterectomy Family History Father Sudden cardiac CVD (cardiovascular disease) Mother No problems noted. Sister Substance use disorder Social History Household Members Other:: 2 daughters Housing: House Alcohol intake: current Alcohol intake frequency: a few times a month Alcohol type: wine Patient Tobacco Use Status: Former Tobacco user Years Smoked: 30 years e-Cigarette/Vaping Use: Never Used service: No Current occupational status: retired Cognitive needs: No Hearing needs: No Vision needs: Yes Questionnaire PHQ-9 Over the last 2 weeks, how often have you been bothered by any of the following problems? 1. Little interest or pleasure in doing things: not at all 2. Feeling down, depressed, or hopeless: not at all 3. Trouble falling or staying asleep, or sleeping too much: not at all 4. Feeling tired or having little energy: not at all 5. Poor appetite or overeating: several days 6. Feeling bad about yourself - or that you are a failure or have let yourself or your family down: several days 7. Trouble concentrating on things, such as reading the newspaper or watching television: not at all 8. Moving or speaking so slowly that other people could have noticed. Or the opposite - being so fidgety or restless that you have been moving around a lot more than usual: not at all 9. Thoughts that you would be better off or of hurting yourself in some way: not at all Total score: 2 Depression Screening Interpretation: Negative Depression Screening Done: Yes Source: Developed by Drs. Alphonse Mckenna, Karen Patton, Riaz Faye and colleagues, with an educational molly from [employer]. Thrive Questionnaire Date Thrive assessed: 09/19/24 I am a: Patient What is your living situation today?: I have a steady place to live Within the past 12 months, did the food you bought not last and you didn't have the money to get more?: Never true Within the past 12 months, did you worry whether your food would run out before you got money to buy more?: Never true Do you have trouble paying for medicines?: No Do you have trouble getting transportation to medical appointments?: No Do you have trouble paying your heating and electricity bill?: No Do you have trouble taking care of your child, family member or friend?: No Do you have trouble with day-to-day activities such as bathing, preparing meals, shopping, managing finances, etc.?: No Are you currently unemployed and looking for a job?: No Are you interested in more education?: No Please select the resources that you would like help with: None Currently or been in a relationship where the following occur: No concerns reported THRIVE Score: 0 AUDIT C Alcohol Use Questionnaire (AUDIT-C) 1. How often do you have a drink containing alcohol?: 2-4 times a month 2. How many drinks containing alcohol do you have on a typical day when you are drinking?: 1 or 2 3. How often do you have six or more drinks on one occasion?: Never Total Score: 2 ELVIS-7 AMB Questionnaire ELVIS-7 Date ELVIS - 7 assessed: 06/05/25 Feeling nervous, anxious, or on edge: 0 = Not at all Not being able to stop or control worryin = Not at all Worrying too much about different things: 0 = Not at all Trouble relaxin = Not at all Being so restless that it is hard to sit still: 0 = Not at all Becoming easily annoyed or irritable: 0 = Not at all Feeling afraid as if something awful might happen: 0 = Not at all Total ELVIS-7 score (0-4 normal; 5-9 mild; 10-14 moderate; 15-21 severe): 0 Source: Developed by Drs. Alphonse Mckenna, Karen Patton, Riaz Faye and colleagues, with an educational molly from [employer]. ELVIS-7 Assessment Billing ELVIS-7 Assessment Tool: ELVIS-7 Assessment 69947 Review of Systems Const Denies chills, Denies fatigue, Denies fever(s), Denies frequent falls, Denies weakness and Denies weight loss ENT Denies dizziness Card Denies chest pain, Denies leg edema, Denies lightheadedness, Denies palpitations, Denies dyspnea and Denies dyspnea on exertion Resp Denies cough, Denies dyspnea and Denies dyspnea on exertion GI Denies abdominal pain, Denies hematochezia, Denies change in bowel habits, Denies change in stool character and Denies heartburn Reports no additional complaints Musc Denies abnormal gait, Denies muscle weakness and Denies numbness Neuro Denies abnormal gait, Denies dizziness, Denies frequent falls, Denies numbness and Denies weakness Psych Reports no additional complaints Endo Denies fatigue and Denies palpitations Alessandro/Lymph Denies easy bleeding and Denies easy bruising Aller/Immun Reports no additional complaints Physical exam (Primary Care) Vital Signs: Last Vital Signs Temp 97.7 F 06/05/25 08:01 Pulse 90 06/05/25 08:01 Resp 16 06/05/25 08:01 BP 100/60 06/05/25 08:01 Pulse Ox 94 06/05/25 08:01 Oxygen Delivery Method Room Air 06/05/25 08:01 BMI result Body Mass Index 26.8 Tobacco/Smoking Status: Tobacco use Status Tobacco use date assessed 06/05/25 06/05/25 08:07 Patient Tobacco Use Status Former Tobacco user 06/05/25 08:07 e-Cigarette/Vaping Use Never Used 06/05/25 08:07 PHQ-9: PHQ-9 Score PHQ-9: Total score 2 06/05/25 08:07 Depression Screening Interpretation: Negative Thrive Assessment: Date of Thrive Assessment Date Thrive assessed 09/19/24 06/05/25 08:07 Currently or been in a relationship where the following occur: No concerns reported Const General: no acute distress, alert and Physically active Nutritional Appearance: obese Orientation/consciousness: patient oriented x3 HENMT Head: Yes normocephalic Ears: external ears normal General nose exam: Normal external nose present Face and sinus: Yes face symmetric Mouth: Normal oral and palatal mucosa present and moist mucous membranes Teeth and gingiva: dentures (Upper) Eyes General: appearance normal, both eyes and all related structures Neck Neck: Yes full ROM, Yes no lymphadenopathy and Yes supple Resp Auscultation: clear to auscultation bilaterally Cardio Other: S1-S2 present regular rate and rhythm, systolic murmur GI Palpation (GI): Soft to palpation, nontender, no guarding and no masses Auscultation: normal bowel sounds Back/Spine/Pelvis Back: No back tenderness Skin General skin exam: no rashes or lesions noted and no purpura Nails: yellow and thickened (Bilaterally) Neuro General: patient oriented x3 Extrem General: Yes full ROM, Yes no joint enlargement, Yes no pedal edema and Yes no calf tenderness Psych Appearance: grossly normal and well kempt Mental Status: mental status grossly normal Speech and movement: Normal speech and movement present Affect: normal affect Immunizations pneumoc 20-marielena conj-dip cr(PF) 0.5 mL IM syringe Performing Provider: Allegra Lo MD Performing Location: [facility] Administered by: Yennifer Jaquez CMA on 06/05/25 08:28 Dose Route Admin Location Dispensed Lot Number Expiration Date [facility] Supervisor Frame Sample And Pattern 0.5 mL IM Right Deltoid 0.5 mL [id number] 09/15/25 [employer] Total Dispensed Waste 0.5 mL 0 % VIS Given Date VIS Provided VIS Publication Date 06/05/25 Single Vaccine 24 Eligibility Eligibility Date Funding Source Not [facility] Eligible 06/05/25 Private Results Reviewed Results Reviewed: Name: Angelika Mora Age/Sex: 84/F : 1940 Unit#: [id number] Attend Dr: Allegra Lo MD Re05/30/25 Status: DEP REF Location: [facility] Disch: SPEC : [id number] EDE: 05/30/25 STATUS: COMP REQ : [id number] RECD: 05/30/[address]: Allegra Lo MD COMP: 05/30/25 ENTERED: 05/30/[address] [facility] [address]: ORDERED: Met Prof Fast, AST, ALT, Lipid Panel, Vitamin D 25-OH, Free T4, TSH Test Result Flag Reference Sodium 142 135-145 mmol/L Potassium 3.9 3.3-5.1 mmol/L CL 106 96-108 mmol/L CO2 25 22-29 mmol/L Gap 15 12-20 BUN 12 9-16 mg/dL Creat 0.63 0.5-1.4 mg/dL eGFR > 60 Chronic Kidney Disease: Estimated GFR < 60 mL/min/1.73m2 Severe Kidney Disease: Estimated GFR < 15 mL/min/1.73m2 FBS 158 H 60-99 mg/dL A fasting glucose of 126 mg/dl or greater on more than one occasion is considered diagnostic of diabetes. CA 9.0 8.4-10.2 mg/dL AST (GOT) 18 5-31 U/L ALT (GPT) 14 0-31 U/L Triglyceride 152 H <150 mg/dL Desirable Triglyceride: less than 150 mg/dL Borderline High Triglyceride 150-199 mg/dL High Triglyceride: 200-499 mg/dL Very High Triglyceride: greater than or equal to 5OO mg/dL Cholesterol 111 <200 mg/dL Desirable Cholesterol: less than 200 mg/dL Borderline High Cholesterol: 200-239 mg/dL High Cholesterol: greater than 239 mg/dL LDL Calculated 42 <100 mg/dL Desirable LDL: less than 100 mg/dL Near Optimal/Above Optimal LDL: 110-129 mg/dL Borderline High LDL: 130-159 mg/dL High LDL: 160-189 mg/dL Very High LDL: greater than or equal to 190 mg/dL HDL 39 L >40 mg/dL Desirable HDL: greater than 40 mg/dL Note: This HDL assay may give artificially low results in patients with liver disease. Vitamin D 25-OH 23.9 L >30 ng/mL Health Based Reference Values* < 20 ng/mL Deficient 20-30 ng/mL Insufficient > 30 ng/mL Sufficient *Nicholas HAN. N Engl J Med. 2007;357:266-280 There is no well-established upper level of normal vitamin D levels. Some laboratories use 50 ng/mL as an upper limit of normal. However, toxicity is patient-dependent and may occur at any level. Careful correlation with the patient's presentation is necessary and, if there is concern for vitamin D toxicity, treatment should be considered irrespective of the serum level. Care must be taken in interpreting Vitamin D results from different laboratories and methodologies. Published data demonstrated that results from patients undergoing hemodialysis may show a negative bias when tested with various automated 25-OH vitamin D assays when compared to LC-MS/MS. When testing samples from patients whose predominant form of Vitamin D is Vitamin D2, such as patients receiving Vitamin D2 supplementation, results that are subtherapeutic should be confirmed with another method such as LC-MS/MS. Free T4 1.33 0.71-1.85 ng/dL TSH 3rd Gen. 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 Continue with nifedipine ER 30 mg daily, metoprolol succinate ER 100 mg daily, and lisinopril 10 mg once a Reinforced importance of following a low sodium diet, getting regular exercise, and lowering stress levels. (2) Dyslipidemia: Code(s): E78.5 - Hyperlipidemia, unspecified Category: Medical Plan: Reviewed recent fasting lipid profile with patient with levels within normal limits except for low good cholesterol levels . Continue atorvastatin 40 mg daily , in addition to adherence to low-cholesterol diet and regular exercise, at least 30 minutes 3 to 4 times a week. Advised patient to make healthy food choices, eat more fruits, vegetables, whole grains, wild caught fish and low-fat dairy. Limit amount of meat and fried or fatty food products, as well as processed foods and fast foods. Follow-up scheduled with repeat fasting lipid panel in October 2025 (3) Type 2 diabetes mellitus with microalbuminuria, without long-term current use of insulin: Code(s): E11.29 - Type 2 diabetes mellitus with other diabetic kidney complication; R80.9 - Proteinuria, unspecified Category: Medical Plan: Diabetes mellitus control better with hemoglobin A1c at 6%, continued on Ozempic and metformin at the same dose. Refill sent. Up-to-date with her diabetes retinopathy screening, goes to [facility] in [place] and sees Dr. Rodríguez for her diabetes foot exam. Prevnar 20 given today, advised to get her yearly flu vaccine and COVID booster (4) Joint pain in fingers of right hand: Code(s): M25.541 - Pain in joints of right hand Category: Medical Plan: Takes Tylenol as needed, patient also advised that she can use [id number] Advil ointment to apply and massaged on to right 2nd MCP joint (5) Hypothyroidism: Code(s): E03.9 - Hypothyroidism, unspecified Category: Medical Qualifiers: Hypothyroidism type: acquired Qualified Code(s): E03.9 - Hypothyroidism, unspecified Plan: Thyroid levels are within normal limits, continue with levothyroxine 112 mcg daily. 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 Hemoglobin and Hematocrit 10/17/25 E03.9 - Hypothyroidism, unspecified, E11.29 - Type 2 diabetes mellitus with other diabetic kidney complication, E78.5 - Hyperlipidemia, unspecified, E80.4 - Gilbert syndrome, I10 - Essential (primary) hypertension, M81.8 - Other osteoporosis without current pathological fracture, R80.9 - Proteinuria, unspecified, Z79.01 - intermediate school teacher (current) use of anticoagulants Lipid Panel 10/17/25 E03.9 - Hypothyroidism, unspecified, E11.29 - Type 2 diabetes mellitus with other diabetic kidney complication, E78.5 - Hyperlipidemia, unspecified, E80.4 - Gilbert syndrome, I10 - Essential (primary) hypertension, M81.8 - Other osteoporosis without current pathological fracture, R80.9 - Proteinuria, unspecified, Z79.01 - intermediate school teacher (current) use of anticoagulants Microalbumin, Random (w Creat) 10/17/25 E03.9 - Hypothyroidism, unspecified, E11.29 - Type 2 diabetes mellitus with other diabetic kidney complication, E78.5 - Hyperlipidemia, unspecified, E80.4 - Gilbert syndrome, I10 - Essential (primary) hypertension, M81.8 - Other osteoporosis without current pathological fracture, R80.9 - Proteinuria, unspecified, Z79.01 - intermediate school teacher (current) use of anticoagulants Vitamin D 25-OH Total 10/17/25 E03.9 - Hypothyroidism, unspecified, E11.29 - Type 2 diabetes mellitus with other diabetic kidney complication, E78.5 - Hyperlipidemia, unspecified, E80.4 - Gilbert syndrome, I10 - Essential (primary) hypertension, M81.8 - Other osteoporosis without current pathological fracture, R80.9 - Proteinuria, unspecified, Z79.01 - penitentiary (current) use of anticoagulants Pneumococcal 20 Immunization Today Z23 - Encounter for immunization Basic Metabolic Panel Fasting 10/17/25 E03.9 - Hypothyroidism, unspecified, E11.29 - Type 2 diabetes mellitus with other diabetic kidney complication, E78.5 - Hyperlipidemia, unspecified, E80.4 - Gilbert syndrome, I10 - Essential (primary) hypertension, M81.8 - Other osteoporosis without current pathological fracture, R80.9 - Proteinuria, unspecified, Z79.01 - intermediate school teacher (current) use of anticoagulants Aspartate Amino Transferase 10/17/25 E03.9 - Hypothyroidism, unspecified, E11.29 - Type 2 diabetes mellitus with other diabetic kidney complication, E78.5 - Hyperlipidemia, unspecified, E80.4 - Gilbert syndrome, I10 - Essential (primary) hypertension, M81.8 - Other osteoporosis without current pathological fracture, R80.9 - Proteinuria, unspecified, Z79.01 - intermediate school teacher (current) use of anticoagulants Hemoglobin A1c 10/17/25 E03.9 - Hypothyroidism, unspecified, E11.29 - Type 2 diabetes mellitus with other diabetic kidney complication, E78.5 - Hyperlipidemia, unspecified, E80.4 - Gilbert syndrome, I10 - Essential (primary) hypertension, M81.8 - Other osteoporosis without current pathological fracture, R80.9 - Proteinuria, unspecified, Z79.01 - intermediate school teacher (current) use of anticoagulants Medications: Refilled levothyroxine 112 mcg PO DAILY 90 tabs 4RF E03.9 - Hypothyroidism, unspecified Ozempic (semaglutide) for 4 weeks 0.5 mg (0.736 mL) subcut QWEEK 3 mL 6RF 30 days NS E11.65 - Type 2 diabetes mellitus with hyperglycemia
== END 2025-06-05 08:32 | disposition home or self-care (01) ==
LOC: HO.HMCC 07:53
PROVIDERS: PCP Internal Medicine; Visit Provider Internal Medicine
DX: I10 Essential (primary) hypertension (principal); E78.5 Hyperlipidemia, unspecified; E11.29 Type 2 diabetes mellitus with other diabetic kidney complication; R80.9 Proteinuria, unspecified; M25.541 Pain in joints of right hand; E03.9 Hypothyroidism, unspecified; H35.3120 Nonexudative age-related macular degeneration, left eye, stage unspecified; Z23 Encounter for immunization

== ENCOUNTER → 2025-06-05 07:53 | Outpatient (BNVA) | payer MEDICARE, SELFPAY | PROVIDERS: PCP Internal Medicine; Visit Provider Internal Medicine | DX: Z23 Encounter for immunization (principal); I10 Essential (primary) hypertension; E78.5 Hyperlipidemia, unspecified; E11.29 Type 2 diabetes mellitus with other diabetic kidney complication; R80.9 Proteinuria, unspecified; E03.9 Hypothyroidism, unspecified; M25.541 Pain in joints of right hand; H35.3120 Nonexudative age-related macular degeneration, left eye, stage unspecified | CPT/HCPCS: 90471; 90677; 96127; 99212 ==